=== PATIENT | female | born 1965 | race Caucasian/White ===

== ENCOUNTER 2024-01-16 11:45 | Inpatient (IN) | payer OTHER, SELFPAY ==
--- OUTSIDE RECORDS SUMMARY | 2024-01-16 11:52 | XMS REPORT | Continuity of Care Document ---
Author Name Unknown Address [address] [facility] [address]. [address] [place] [address] [facility] thconnect Address [address] [facility]. [address] [place] [address] Care Team Providers Care Staff Midwife/Apprenticeship Director Name Role Phone PCP, PATIENT DOES NOT HAVE A Primary Care Physic jasmin Unavailable Beverly Kelsey Attending Clinician Unavailable LEBRON FRANCO Attending Clinician Unavailable LEBRON FRANCO Attending Clinician Unavailable Shirley Attending Clinician Unavailable Beverly Kelsey Admitting Clinician Unavailable Physician, No Primary or Family Admitting Clinic jasmin Unavailable Shirley Admitting Clinician Unavailable Payers Payer Name Policy Type Policy Number Effective Date Expirati on Date Source [facility] [id number] 2023 00:00:00 Allergies, Adverse Reactions, Alerts Allergy Name Allergy Type Status Severity Reaction(s) Onset Date Inactive Date Treating Clinician Comments Source Penicill ins DA Active U HIVES 01-05 00:00: 00 [facility] codeine DA Active U HIVES 01-05 00:00: 00 [facility] Codeine Propensi ty to adverse reaction s Active Unknown - See comments - 00:00: 00 [facility] CODEINE DRUG INGREDI Active Unknown-Cmnt - 00:00: 00 [facility] NO KNOWN ALLERGIE S Drug Class Active [facility] Social History Social Habit Start Date Stop Date Quantity Comments Source [facility] Sex Ass[facility] At 1965 00:00:00 1965 00:00:00 [facility] Smoking Status Start Date Stop Date Source Tobacco smoking consumption unknown [facility] Vital Signs Vital Name Observation Time Observation Value Comments S ource Systolic blood pressure 2023-12-11 16:28:00 118 mm[Hg] [facility] Diastolic blood pressure 2023-12-11 16:28:00 78 mm[Hg] [facility] Heart rate 2023-12-11 16:28:00 88 /min [facility] Body temperature 2023-12-11 16:28:00 36.44 Linda [facility] Respiratory rate 2023-12-11 16:28:00 18 /min [facility] Oxygen saturation in Arterial blood by Pulse oximetry 2023-12-11 16:28:00 99 /min [facility] Procedures Procedure Date / Time Performed Performing Clinicia n Source CONSENT/REFUSAL FOR DIAGNOSIS AND TREATMENT 2023-12-11 16:25:38 Doctor Unassigned, [place] [facility] Encounters Start Date/Time End Date/Time Encounter Type Admission Type Attending Clinicians Care Facility Care Department Encounter ID Source 2024-01-05 01:09:00 2024-01-13 16:17:00 Inpatient ROLDAN Mckinneyzi Beverly [facility] MEDI.01 [id number] [facility] 2024-01-10 15:43:00 2024-01-10 15:43:00 Outpatient KERMIT MckinneyBeverly lowe [facility] MCCL [id number] [facility] 2024-01-04 20:53:00 2024-01-05 05:10:00 Emergency Department Patient Visit [facility] [id number] 10:30:00 2023-12-11 12:19:00 Emergency X LEBRON FRANCO [facility] ERT [id number] [facility] 2023-12-11 10:30:00 2023-12-11 12:19:00 Emergency [facility] [id number] [facility] 2023-12-02 00:00:00 2023-12-02 00:00:00 Outpatient [facility] [id number] [facility] 2023-12-01 00:00:00 2023-12-01 00:00:00 Outpatient [facility] [id number] [facility] 2023-11-24 00:00:00 2023-11-24 00:00:00 Outpatient [facility] [id number] [facility] 2023-11-19 18:04:00 2023-11-19 22:18:00 Emergency Department Patient Visit [facility] [id number] 00:00:00 2023-11-19 00:00:00 Outpatient [facility] [id number] [facility] Results Test Description Test Time Test Comments Results Result Co mments Source BASIC METABOLIC [id number] 07:11:00* Test Item Value Reference Range Interpretation Comme nts SODIUM (test code = NA) 131 mEq/L 134-147 L POTASSIUM (test code = K) 3.3 mEq/L 3.4-5.0 L CHLORIDE (test code = CL) 96 mEq/L 100-108 L CARBON DIOXIDE (test code = CO2) 26 mEq/l 21-33 N ANION GAP (test code = GAP) 12 0-20 N GLUCOSE (test code = GLU) 80 mg/dL 77-141 BLOOD UREA NITROGEN (test code = BUN) < 5 mg/dL 7-25 L GLOMERULAR FILTRATION RATE (test code = GFR) 108.0 90-95 H The Glomerular Filtration Rate is a calculated parameterbased on serum Creatinine, patient age and sex. GFR valuesless than 60 mL/min/1.73 square meters are indicative ofChronic Kidney Disease. Values less than 15 mL/min/1.73square meters indicate Kidney failure. The calculation forGFR is based on the CKD-EPI (2020) calculation. This formulais race indifferent and is the recommended formula for GFRby the National Kidney Foundation for Adults.The GFR will not calculate if the sex is unknown or if thepatient's age is <18 years. CREATININE (test code = CREAT) 0.5 mg/dL 0.6-1.3 L CALCIUM (test code = CA) 8.5 mg/dL 8.0-10.5 N [id number] 07:11:00* Test Item Value Reference Range Interpretation Comme nts MAGNESIUM (test code = MAG) 1.59 mg/dL 1.6-2.6 L UR SODIUM [id number] 18:09:00* Test Item Value Reference Range Interpretation Comme nts UR SODIUM RANDOM (test code = CHRISTINE) 184 MEQ/L The Reference Ra nge and Method Performance specificationshave not been established for this fluid. The test resultshould be correlated into the clinical context forinterpretation. UR POTASSIUM [id number] 18:09:00* Test Item Value Reference Range Interpretation Comme nts UR POTASSIUM RANDOM (test code = KU) 35.6 MEQ/L The Reference Ra nge and Method Performance specificationshave not been established for this fluid. The test resultshould be correlated into the clinical context forinterpretation. UR CHLORIDE [id number] 18:09:00* Test Item Value Reference Range Interpretation Comme nts UR CHLORIDE RANDOM (test code = CLU) 197 mmol/L Not Estab. Performed At: [facility] [address] [id number] Kyle L MD Ph:[phone] UR OSMOLALITY [id number] 18:09:00* Test Item Value Reference Range Interpretation Comme nts UR OSMOLALITY RANDOM (test c ode = OSMOU) 601 MOS/KG 300-1000 BASIC METABOLIC [id number] 07:21:00* Test Item Value Reference Range Interpretation Comme nts SODIUM (test code = NA) 131 mEq/L 134-147 L POTASSIUM (test code = K) 3.5 mEq/L 3.4-5.0 N CHLORIDE (test code = CL) 99 mEq/L 100-108 L CARBON DIOXIDE (test code = CO2) 22 mEq/l 21-33 N ANION GAP (test code = GAP) 14 0-20 N GLUCOSE (test code = GLU) 126 mg/dL 77-141 N BLOOD UREA NITROGEN (test code = BUN) < 5 mg/dL 7-25 L GLOMERULAR FILTRATION RATE (test code = GFR) 108.0 90-95 H The Glomerular Filtration Rate is a calculated parameterbased on serum Creatinine, patient age and sex. GFR valuesless than 60 mL/min/1.73 square meters are indicative ofChronic Kidney Disease. Values less than 15 mL/min/1.73square meters indicate Kidney failure. The calculation forGFR is based on the CKD-EPI (2020) calculation. This formulais race indifferent and is the recommended formula for GFRby the National Kidney Foundation for Adults.The GFR will not calculate if the sex is unknown or if thepatient's age is <18 years. CREATININE (test code = CREAT) 0.5 mg/dL 0.6-1.3 L CALCIUM (test code = CA) 7.6 mg/dL 8.0-10.5 L [id number] 07:21:00* Test Item Value Reference Range Interpretation Comme nts MAGNESIUM (test code = MAG) 1.89 mg/dL 1.6-2.6 OSMOLALITY [id number] 14:05:00* Test Item Value Reference Range Interpretation Comme nts OSMOLALITY SERUM (test code = OSMO) 274 MOS/KG 275-295 L OSMOLALITY [id number] 14:04:00* Test Item Value Reference Range Interpretation Comme nts OSMOLALITY SERUM (test code = OSMO) 274 MOS/KG 275-295 L UR OSMOLALITY [id number] 09:03:00* Test Item Value Reference Range Interpretation Comme nts UR OSMOLALITY RANDOM (test c ode = OSMOU) 601 MOS/KG 300-1000 N CORTISOL [id number] 08:13:00* Test Item Value Reference Range Interpretation Comme nts CORTISOL AM (test code = CORTAM) 14.30 ug/dL Reference Interv al: 2mo-13yrs: 2.4-22.9 ug/dL 14-15yrs(Male): 2.5-22.9 ug/dL 14-15yrs(Female): 2.5-28.6 ug/dL 16-18yrs(M/F): 2.4-28.6 ug/dLAdults(M/F) AM: 4.3-22.4 ug/dLAdults(M/F) PM: 3.1-16.7 ug/dL BASIC METABOLIC [id number] 08:11:00* Test Item Value Reference Range Interpretation Comme nts SODIUM (test code = NA) 131 mEq/L 134-147 L POTASSIUM (test code = K) 3.1 mEq/L 3.4-5.0 L CHLORIDE (test code = CL) 98 mEq/L 100-108 L CARBON DIOXIDE (test code = CO2) 19 mEq/l 21-33 L ANION GAP (test code = GAP) 17 0-20 N GLUCOSE (test code = GLU) 122 mg/dL 77-141 N BLOOD UREA NITROGEN (test code = BUN) 8 mg/dL 7-25 N GLOMERULAR FILTRATION RATE (test code = GFR) 108.0 90-95 H The Glomerular Filtration Rate is a calculated parameterbased on serum Creatinine, patient age and sex. GFR valuesless than 60 mL/min/1.73 square meters are indicative ofChronic Kidney Disease. Values less than 15 mL/min/1.73square meters indicate Kidney failure. The calculation forGFR is based on the CKD-EPI (202) calculation. This formulais race indifferent and is the recommended formula for GFRby the National Kidney Foundation for Adults.The GFR will not calculate if the sex is unknown or if thepatient's age is <18 years. CREATININE (test code = CREAT) 0.5 mg/dL 0.6-1.3 L CALCIUM (test code = CA) 8.2 mg/dL 8.0-10.5 N [id number] 08:11:00* Test Item Value Reference Range Interpretation Comme nts PHOSPHOROUS (test code = PHOS) 2.9 MG/DL 2.5-4.9 N [id number] 08:11:00* Test Item Value Reference Range Interpretation Comme nts MAGNESIUM (test code = MAG) 2.27 mg/dL 1.6-2.6 [id number] 08:11:00* Test Item Value Reference Range Interpretation Comme nts ALDOSTERONE (test code = ALDOS) RENIN [id number] 08:11:00* Test Item Value Reference Range Interpretation Comme nts RENIN ACTIVITY (test code = RENINA) CBC W/AUTO [id number] 08:00:00* Test Item Value Reference Range Interpretation Comme nts WHITE BLOOD CELL (test code = WBC) 6.0 x10 3/uL 4.5-11.0 N RED BLOOD CELL (test code = RBC) 3.81 x10 6/uL 3.54-5.02 N HEMOGLOBIN (test code = HGB) 12.5 g/dL 11.0-15.0 N HEMATOCRIT (test code = HCT) 36.0 % 33.0-45.0 N MEAN CELL VOLUME (test code = MCV) 94.5 fL 81.0-99.0 N MEAN CELL HGB (test code = MCH) 32.8 pg 27.0-33.0 N MEAN CELL HGB CONCETRATION (test code = MCHC) 34.7 g/dL 33.0-37.0 N RED CELL DISTRIBUTION WIDTH CV (test code = RDW) 14.4 % 11.5-14.5 N RED CELL DISTRIBUTION WIDTH SD (test code = RDW-SD) 49.2 fL 37.0-54.0 N PLATELET COUNT (test code = PLT) 211 x10 3/uL 150-400 N MEAN PLATELET VOLUME (test c ode = MPV) 10.3 fL 7.0-9.0 H NEUTROPHIL % (test code = NT%) 79.8 % 56.0-77.0 H IMMATURE GRANULOCYTE % (test code = IG%) 0.8 % 0.0-2.0 N LYMPHOCYTE % (test code = LY%) 9.7 % 14.0-32.0 L MONOCYTE % (test code = MO%) 9.7 % 4.8-9.0 H EOSINOPHIL % (test code = EO%) 0.0 % 0.3-3.7 L BASOPHIL % (test code = BA%) 0.0 % 0.0-2.0 N NUCLEATED RBC % (test code = NRBC%) 0.0 % 0-0 N NEUTROPHIL # (test code = NT#) 4.78 x10 3/uL 2.0-7.6 N IMMATURE GRANULOCYTE # (test code = IG#) 0.05 x10 3/uL 0.00-0.03 H LYMPHOCYTE # (test code = LY#) 0.58 x10 3/uL 1.0-3.8 L MONOCYTE # (test code = MO#) 0.58 x10 3/uL 0.1-0.8 N EOSINOPHIL # (test code = EO#) 0.00 x10 3/uL 0.0-0.2 N BASOPHIL # (test code = BA#) 0.00 x10 3/uL 0.0-0.2 N NUCLEATED RBC # (test code = NRBC#) 0.00 x10 3/uL 0.0-0.1 N [id number] 17:29:00* Test Item Value Reference Range Interpretation Comme nts MAGNESIUM (test code = MAG) 1.23 mg/dL 1.6-2.6 L ADD ON TEST? YesBASIC METABOLIC [id number] 08:29:00* Test Item Value Reference Range Interpretation Comme nts SODIUM (test code = NA) 134 mEq/L 134-147 N POTASSIUM (test code = K) 2.9 mEq/L 3.4-5.0 LL Critical result called to Florentin [email or web address] at 0827 01/10/24Nurse read back resut and tech confirmed it's correct? YES CHLORIDE (test code = CL) 101 mEq/L 100-108 N CARBON DIOXIDE (test code = CO2) 19 mEq/l 21-33 L ANION GAP (test code = GAP) 17 0-20 N GLUCOSE (test code = GLU) 100 mg/dL 77-141 BLOOD UREA NITROGEN (test code = BUN) 9 mg/dL 7-25 N GLOMERULAR FILTRATION RATE (test code = GFR) 108.0 90-95 H The Glomerular Filtration Rate is a calculated parameterbased on serum Creatinine, patient age and sex. GFR valuesless than 60 mL/min/1.73 square meters are indicative ofChronic Kidney Disease. Values less than 15 mL/min/1.73square meters indicate Kidney failure. The calculation forGFR is based on the CKD-EPI (2020) calculation. This formulais race indifferent and is the recommended formula for GFRby the National Kidney Foundation for Adults.The GFR will not calculate if the sex is unknown or if thepatient's age is <18 years. CREATININE (test code = CREAT) 0.5 mg/dL 0.6-1.3 L CALCIUM (test code = CA) 8.3 mg/dL 8.0-10.5 N CBC W/AUTO [id number] 07:50:00* Test Item Value Reference Range Interpretation Comme nts WHITE BLOOD CELL (test code = WBC) 7.8 x10 3/uL 4.5-11.0 N RED BLOOD CELL (test code = RBC) 3.90 x10 6/uL 3.54-5.02 N HEMOGLOBIN (test code = HGB) 12.9 g/dL 11.0-15.0 N HEMATOCRIT (test code = HCT) 37.9 % 33.0-45.0 N MEAN CELL VOLUME (test code = MCV) 97.2 fL 81.0-99.0 N MEAN CELL HGB (test code = MCH) 33.1 pg 27.0-33.0 H MEAN CELL HGB CONCETRATION (test code = MCHC) 34.0 g/dL 33.0-37.0 N RED CELL DISTRIBUTION WIDTH CV (test code = RDW) 14.5 % 11.5-14.5 N RED CELL DISTRIBUTION WIDTH SD (test code = RDW-SD) 51.4 fL 37.0-54.0 N PLATELET COUNT (test code = PLT) 235 x10 3/uL 150-400 N MEAN PLATELET VOLUME (test c ode = MPV) 10.9 fL 7.0-9.0 H NEUTROPHIL % (test code = NT%) 82.4 % 56.0-77.0 H IMMATURE GRANULOCYTE % (test code = IG%) 1.0 % 0.0-2.0 N LYMPHOCYTE % (test code = LY%) 9.1 % 14.0-32.0 L MONOCYTE % (test code = MO%) 7.5 % 4.8-9.0 N EOSINOPHIL % (test code = EO%) 0.0 % 0.3-3.7 L BASOPHIL % (test code = BA%) 0.0 % 0.0-2.0 N NUCLEATED RBC % (test code = NRBC%) 0.0 % 0-0 N NEUTROPHIL # (test code = NT#) 6.46 x10 3/uL 2.0-7.6 N IMMATURE GRANULOCYTE # (test code = IG#) 0.08 x10 3/uL 0.00-0.03 H LYMPHOCYTE # (test code = LY#) 0.71 x10 3/uL 1.0-3.8 L MONOCYTE # (test code = MO#) 0.59 x10 3/uL 0.1-0.8 N EOSINOPHIL # (test code = EO#) 0.00 x10 3/uL 0.0-0.2 N BASOPHIL # (test code = BA#) 0.00 x10 3/uL 0.0-0.2 N NUCLEATED RBC # (test code = NRBC#) 0.00 x10 3/uL 0.0-0.1 N BASIC METABOLIC [id number] 06:50:00* Test Item Value Reference Range Interpretation Comme nts SODIUM (test code = NA) 134 mEq/L 134-147 N POTASSIUM (test code = K) 3.1 mEq/L 3.4-5.0 L CHLORIDE (test code = CL) 104 mEq/L 100-108 N CARBON DIOXIDE (test code = CO2) 19 mEq/l 21-33 L ANION GAP (test code = GAP) 14 0-20 N GLUCOSE (test code = GLU) 135 mg/dL 77-141 N BLOOD UREA NITROGEN (test code = BUN) 6 mg/dL 7-25 L GLOMERULAR FILTRATION RATE (test code = GFR) 108.0 90-95 H The Glomerular Filtration Rate is a calculated parameterbased on serum Creatinine, patient age and sex. GFR valuesless than 60 mL/min/1.73 square meters are indicative ofChronic Kidney Disease. Values less than 15 mL/min/1.73square meters indicate Kidney failure. The calculation forGFR is based on the CKD-EPI (202) calculation. This formulais race indifferent and is the recommended formula for GFRby the National Kidney Foundation for Adults.The GFR will not calculate if the sex is unknown or if thepatient's age is <18 years. CREATININE (test code = CREAT) 0.5 mg/dL 0.6-1.3 L CALCIUM (test code = CA) 7.5 mg/dL 8.0-10.5 L CBC W/AUTO [id number] 06:48:00* Test Item Value Reference Range Interpretation Comme nts WHITE BLOOD CELL (test code = WBC) 7.0 x10 3/uL 4.5-11.0 RED BLOOD CELL (test code = RBC) 3.68 x10 6/uL 3.54-5.02 N HEMOGLOBIN (test code = HGB) 12.3 g/dL 11.0-15.0 N HEMATOCRIT (test code = HCT) 35.4 % 33.0-45.0 N MEAN CELL VOLUME (test code = MCV) 96.2 fL 81.0-99.0 N MEAN CELL HGB (test code = MCH) 33.4 pg 27.0-33.0 H MEAN CELL HGB CONCETRATION (test code = MCHC) 34.7 g/dL 33.0-37.0 N RED CELL DISTRIBUTION WIDTH CV (test code = RDW) 14.2 % 11.5-14.5 N RED CELL DISTRIBUTION WIDTH SD (test code = RDW-SD) 50.3 fL 37.0-54.0 N PLATELET COUNT (test code = PLT) 246 x10 3/uL 150-400 N MEAN PLATELET VOLUME (test c ode = MPV) 10.3 fL 7.0-9.0 H NEUTROPHIL % (test code = NT%) 80.1 % 56.0-77.0 H IMMATURE GRANULOCYTE % (test code = IG%) 1.1 % 0.0-2.0 N LYMPHOCYTE % (test code = LY%) 11.4 % 14.0-32.0 L MONOCYTE % (test code = MO%) 7.4 % 4.8-9.0 N EOSINOPHIL % (test code = EO%) 0.0 % 0.3-3.7 L BASOPHIL % (test code = BA%) 0.0 % 0.0-2.0 N NUCLEATED RBC % (test code = NRBC%) 0.0 % 0-0 N NEUTROPHIL # (test code = NT#) 5.63 x10 3/uL 2.0-7.6 N IMMATURE GRANULOCYTE # (test code = IG#) 0.08 x10 3/uL 0.00-0.03 H LYMPHOCYTE # (test code = LY#) 0.80 x10 3/uL 1.0-3.8 L MONOCYTE # (test code = MO#) 0.52 x10 3/uL 0.1-0.8 N EOSINOPHIL # (test code = EO#) 0.00 x10 3/uL 0.0-0.2 N BASOPHIL # (test code = BA#) 0.00 x10 3/uL 0.0-0.2 N NUCLEATED RBC # (test code = NRBC#) 0.00 x10 3/uL 0.0-0.1 N MANUAL DIFF REQUIRED (test c ode = MDIFF) NO BASIC METABOLIC [id number] 07:07:00* Test Item Value Reference Range Interpretation Comme nts SODIUM (test code = NA) 137 mEq/L 134-147 N POTASSIUM (test code = K) 3.6 mEq/L 3.4-5.0 N CHLORIDE (test code = CL) 106 mEq/L 100-108 N CARBON DIOXIDE (test code = CO2) 20 mEq/l 21-33 L ANION GAP (test code = GAP) 14 0-20 N GLUCOSE (test code = GLU) 119 mg/dL 77-141 N BLOOD UREA NITROGEN (test code = BUN) 7 mg/dL 7-25 N GLOMERULAR FILTRATION RATE (test code = GFR) 108.0 90-95 H The Glomerular Filtration Rate is a calculated parameterbased on serum Creatinine, patient age and sex. GFR valuesless than 60 mL/min/1.73 square meters are indicative ofChronic Kidney Disease. Values less than 15 mL/min/1.73square meters indicate Kidney failure. The calculation forGFR is based on the CKD-EPI (202) calculation. This formulais race indifferent and is the recommended formula for GFRby the National Kidney Foundation for Adults.The GFR will not calculate if the sex is unknown or if thepatient's age is <18 years. CREATININE (test code = CREAT) 0.5 mg/dL 0.6-1.3 L CALCIUM (test code = CA) 8.0 mg/dL 8.0-10.5 N CBC W/AUTO [id number] 07:02:00* Test Item Value Reference Range Interpretation Comme nts WHITE BLOOD CELL (test code = WBC) 12.8 x10 3/uL 4.5-11.0 H RED BLOOD CELL (test code = RBC) 3.68 x10 6/uL 3.54-5.02 N HEMOGLOBIN (test code = HGB) 12.2 g/dL 11.0-15.0 N HEMATOCRIT (test code = HCT) 35.2 % 33.0-45.0 N MEAN CELL VOLUME (test code = MCV) 95.7 fL 81.0-99.0 N MEAN CELL HGB (test code = MCH) 33.2 pg 27.0-33.0 H MEAN CELL HGB CONCETRATION (test code = MCHC) 34.7 g/dL 33.0-37.0 N RED CELL DISTRIBUTION WIDTH CV (test code = RDW) 14.1 % 11.5-14.5 N RED CELL DISTRIBUTION WIDTH SD (test code = RDW-SD) 49.3 fL 37.0-54.0 N PLATELET COUNT (test code = PLT) 289 x10 3/uL 150-400 N MEAN PLATELET VOLUME (test code = MPV) 10.1 fL 7.0-9.0 H NEUTROPHIL % (test code = NT%) 84.4 % 56.0-77.0 H IMMATURE GRANULOCYTE % (test code = IG%) 1.6 % 0.0-2.0 N LYMPHOCYTE % (test code = LY%) 8.4 % 14.0-32.0 L MONOCYTE % (test code = MO%) 5.5 % 4.8-9.0 N EOSINOPHIL % (test code = EO%) 0.0 % 0.3-3.7 L BASOPHIL % (test code = BA%) 0.1 % 0.0-2.0 N NUCLEATED RBC % (test code = NRBC%) 0.0 % 0-0 N NEUTROPHIL # (test code = NT#) 10.80 x10 3/uL 2.0-7.6 H IMMATURE GRANULOCYTE # (test code = IG#) 0.20 x10 3/uL 0.00-0.03 H LYMPHOCYTE # (test code = LY#) 1.07 x10 3/uL 1.0-3.8 N MONOCYTE # (test code = MO#) 0.70 x10 3/uL 0.1-0.8 N EOSINOPHIL # (test code = EO#) 0.00 x10 3/uL 0.0-0.2 N BASOPHIL # (test code = BA#) 0.01 x10 3/uL 0.0-0.2 N NUCLEATED RBC # (test code = NRBC#) 0.00 x10 3/uL 0.0-0.1 N BASIC METABOLIC [id number] 07:46:00* Test Item Value Reference Range Interpretation Comme nts SODIUM (test code = NA) 137 mEq/L 134-147 N POTASSIUM (test code = K) 3.1 mEq/L 3.4-5.0 L CHLORIDE (test code = CL) 105 mEq/L 100-108 N CARBON DIOXIDE (test code = CO2) 22 mEq/l 21-33 N ANION GAP (test code = GAP) 13 0-20 N GLUCOSE (test code = GLU) 157 mg/dL 77-141 H BLOOD UREA NITROGEN (test code = BUN) < 5 mg/dL 7-25 L GLOMERULAR FILTRATION RATE (test code = GFR) 113.9 90-95 H The Glomerular Filtration Rate is a calculated parameterbased on serum Creatinine, patient age and sex. GFR valuesless than 60 mL/min/1.73 square meters are indicative ofChronic Kidney Disease. Values less than 15 mL/min/1.73square meters indicate Kidney failure. The calculation forGFR is based on the CKD-EPI (2020) calculation. This formulais race indifferent and is the recommended formula for GFRby the National Kidney Foundation for Adults.The GFR will not calculate if the sex is unknown or if thepatient's age is <18 years. CREATININE (test code = CREAT) 0.4 mg/dL 0.6-1.3 L CALCIUM (test code = CA) 8.0 mg/dL 8.0-10.5 N CBC W/AUTO [id number] 07:34:00* Test Item Value Reference Range Interpretation Comme nts WHITE BLOOD CELL (test code = WBC) 9.5 x10 3/uL 4.5-11.0 N RED BLOOD CELL (test code = RBC) 3.42 x10 6/uL 3.54-5.02 L HEMOGLOBIN (test code = HGB) 11.3 g/dL 11.0-15.0 N HEMATOCRIT (test code = HCT) 32.8 % 33.0-45.0 L MEAN CELL VOLUME (test code = MCV) 95.9 fL 81.0-99.0 N MEAN CELL HGB (test code = MCH) 33.0 pg 27.0-33.0 N MEAN CELL HGB CONCETRATION (test code = MCHC) 34.5 g/dL 33.0-37.0 N RED CELL DISTRIBUTION WIDTH CV (test code = RDW) 14.0 % 11.5-14.5 N RED CELL DISTRIBUTION WIDTH SD (test code = RDW-SD) 49.2 fL 37.0-54.0 N PLATELET COUNT (test code = PLT) 263 x10 3/uL 150-400 N MEAN PLATELET VOLUME (test c ode = MPV) 10.4 fL 7.0-9.0 H NEUTROPHIL % (test code = NT%) 87.1 % 56.0-77.0 H IMMATURE GRANULOCYTE % (test code = IG%) 1.3 % 0.0-2.0 N LYMPHOCYTE % (test code = LY%) 8.3 % 14.0-32.0 L MONOCYTE % (test code = MO%) 3.3 % 4.8-9.0 L EOSINOPHIL % (test code = EO%) 0.0 % 0.3-3.7 L BASOPHIL % (test code = BA%) 0.0 % 0.0-2.0 N NUCLEATED RBC % (test code = NRBC%) 0.0 % 0-0 N NEUTROPHIL # (test code = NT#) 8.29 x10 3/uL 2.0-7.6 H IMMATURE GRANULOCYTE # (test code = IG#) 0.12 x10 3/uL 0.00-0.03 H LYMPHOCYTE # (test code = LY#) 0.79 x10 3/uL 1.0-3.8 L MONOCYTE # (test code = MO#) 0.31 x10 3/uL 0.1-0.8 N EOSINOPHIL # (test code = EO#) 0.00 x10 3/uL 0.0-0.2 N BASOPHIL # (test code = BA#) 0.00 x10 3/uL 0.0-0.2 N NUCLEATED RBC # (test code = NRBC#) 0.00 x10 3/uL 0.0-0.1 N BASIC METABOLIC [id number] 07:55:00* Test Item Value Reference Range Interpretation Comme nts SODIUM (test code = NA) 140 mEq/L 134-147 N POTASSIUM (test code = K) 3.3 mEq/L 3.4-5.0 L CHLORIDE (test code = CL) 106 mEq/L 100-108 N CARBON DIOXIDE (test code = CO2) 23 mEq/l 21-33 N ANION GAP (test code = GAP) 14 0-20 N GLUCOSE (test code = GLU) 135 mg/dL 77-141 N BLOOD UREA NITROGEN (test code = BUN) < 5 mg/dL 7-25 L GLOMERULAR FILTRATION RATE (test code = GFR) 108.0 90-95 H The Glomerular Filtration Rate is a calculated parameterbased on serum Creatinine, patient age and sex. GFR valuesless than 60 mL/min/1.73 square meters are indicative ofChronic Kidney Disease. Values less than 15 mL/min/1.73square meters indicate Kidney failure. The calculation forGFR is based on the CKD-EPI (202) calculation. This formulais race indifferent and is the recommended formula for GFRby the National Kidney Foundation for Adults.The GFR will not calculate if the sex is unknown or if thepatient's age is <18 years. CREATININE (test code = CREAT) 0.5 mg/dL 0.6-1.3 L CALCIUM (test code = CA) 8.2 mg/dL 8.0-10.5 N CBC W/AUTO [id number] 07:48:00* Test Item Value Reference Range Interpretation Comme nts WHITE BLOOD CELL (test code = WBC) 11.5 x10 3/uL 4.5-11.0 H RED BLOOD CELL (test code = RBC) 3.27 x10 6/uL 3.54-5.02 L HEMOGLOBIN (test code = HGB) 10.8 g/dL 11.0-15.0 L HEMATOCRIT (test code = HCT) 31.5 % 33.0-45.0 L MEAN CELL VOLUME (test code = MCV) 96.3 fL 81.0-99.0 N MEAN CELL HGB (test code = MCH) 33.0 pg 27.0-33.0 N MEAN CELL HGB CONCETRATION (test code = MCHC) 34.3 g/dL 33.0-37.0 N RED CELL DISTRIBUTION WIDTH CV (test code = RDW) 14.0 % 11.5-14.5 N RED CELL DISTRIBUTION WIDTH SD (test code = RDW-SD) 48.8 fL 37.0-54.0 N PLATELET COUNT (test code = PLT) 271 x10 3/uL 150-400 MEAN PLATELET VOLUME (test code = MPV) 10.4 fL 7.0-9.0 H NEUTROPHIL % (test code = NT%) 87.4 % 56.0-77.0 H IMMATURE GRANULOCYTE % (test code = IG%) 1.0 % 0.0-2.0 N LYMPHOCYTE % (test code = LY%) 7.1 % 14.0-32.0 L MONOCYTE % (test code = MO%) 4.4 % 4.8-9.0 L EOSINOPHIL % (test code = EO%) 0.0 % 0.3-3.7 L BASOPHIL % (test code = BA%) 0.1 % 0.0-2.0 N NUCLEATED RBC % (test code = NRBC%) 0.0 % 0-0 N NEUTROPHIL # (test code = NT#) 10.04 x10 3/uL 2.0-7.6 H IMMATURE GRANULOCYTE # (test code = IG#) 0.12 x10 3/uL 0.00-0.03 H LYMPHOCYTE # (test code = LY#) 0.82 x10 3/uL 1.0-3.8 L MONOCYTE # (test code = MO#) 0.50 x10 3/uL 0.1-0.8 N EOSINOPHIL # (test code = EO#) 0.00 x10 3/uL 0.0-0.2 N BASOPHIL # (test code = BA#) 0.01 x10 3/uL 0.0-0.2 N NUCLEATED RBC # (test code = NRBC#) 0.00 x10 3/uL 0.0-0.1 N AG HEPATITIS B [id number] 19:11:00* Test Item Value Reference Range Interpretation Comme nts AG HEPATITIS B SURFACE (test code = HBSAG) NON REACTIVE INDEX NonReactive AB HEPATITIS [id number] 19:11:00* Test Item Value Reference Range Interpretation Comme nts AB HEPATITIS C (test code = HCVAB) REACTIVE INDEX NON REACT. A A reactive antib mayo test is not diagnostic of activehepatitis C infection. A confirmatory test such as a NucleicAcid Test for HCV RNA test is recommended if clinicallyindicated. AB HIV 1 19:11:00* Test Item Value Reference Range Interpretation Comme nts AB HIV 1 2 (test code = [id number]) Nonreactive Nonreactive BASIC METABOLIC [id number] 08:28:00* Test Item Value Reference Range Interpretation Comme nts SODIUM (test code = NA) 136 mEq/L 134-147 N POTASSIUM (test code = K) 3.8 mEq/L 3.4-5.0 CHLORIDE (test code = CL) 103 mEq/L 100-108 N CARBON DIOXIDE (test code = CO2) 21 mEq/l 21-33 N ANION GAP (test code = GAP) 16 0-20 N GLUCOSE (test code = GLU) 114 mg/dL 77-141 BLOOD UREA NITROGEN (test code = BUN) < 5 mg/dL 7-25 L GLOMERULAR FILTRATION RATE (test code = GFR) 108.0 90-95 H The Glomerular Filtration Rate is a calculated parameterbased on serum Creatinine, patient age and sex. GFR valuesless than 60 mL/min/1.73 square meters are indicative ofChronic Kidney Disease. Values less than 15 mL/min/1.73square meters indicate Kidney failure. The calculation forGFR is based on the CKD-EPI (2020) calculation. This formulais race indifferent and is the recommended formula for GFRby the National Kidney Foundation for Adults.The GFR will not calculate if the sex is unknown or if thepatient's age is <18 years. CREATININE (test code = CREAT) 0.5 mg/dL 0.6-1.3 L CALCIUM (test code = CA) 8.5 mg/dL 8.0-10.5 N CBC W/AUTO [id number] 08:14:00* Test Item Value Reference Range Interpretation Comme nts WHITE BLOOD CELL (test code = WBC) 3.9 x10 3/uL 4.5-11.0 L RED BLOOD CELL (test code = RBC) 4.02 x10 6/uL 3.54-5.02 N HEMOGLOBIN (test code = HGB) 13.2 g/dL 11.0-15.0 N HEMATOCRIT (test code = HCT) 39.3 % 33.0-45.0 MEAN CELL VOLUME (test code = MCV) 97.8 fL 81.0-99.0 N MEAN CELL HGB (test code = MCH) 32.8 pg 27.0-33.0 N MEAN CELL HGB CONCETRATION (test code = MCHC) 33.6 g/dL 33.0-37.0 N RED CELL DISTRIBUTION WIDTH CV (test code = RDW) 13.9 % 11.5-14.5 N RED CELL DISTRIBUTION WIDTH SD (test code = RDW-SD) 49.7 fL 37.0-54.0 N PLATELET COUNT (test code = PLT) 178 x10 3/uL 150-400 N MEAN PLATELET VOLUME (test c ode = MPV) 10.4 fL 7.0-9.0 H NEUTROPHIL % (test code = NT%) 80.8 % 56.0-77.0 H IMMATURE GRANULOCYTE % (test code = IG%) 0.8 % 0.0-2.0 N LYMPHOCYTE % (test code = LY%) 15.2 % 14.0-32.0 N MONOCYTE % (test code = MO%) 2.6 % 4.8-9.0 L EOSINOPHIL % (test code = EO%) 0.3 % 0.3-3.7 N BASOPHIL % (test code = BA%) 0.3 % 0.0-2.0 N NUCLEATED RBC % (test code = NRBC%) 0.0 % 0-0 N NEUTROPHIL # (test code = NT#) 3.14 x10 3/uL 2.0-7.6 N IMMATURE GRANULOCYTE # (test code = IG#) 0.03 x10 3/uL 0.00-0.03 N LYMPHOCYTE # (test code = LY#) 0.59 x10 3/uL 1.0-3.8 L MONOCYTE # (test code = MO#) 0.10 x10 3/uL 0.1-0.8 N EOSINOPHIL # (test code = EO#) 0.01 x10 3/uL 0.0-0.2 N BASOPHIL # (test code = BA#) 0.01 x10 3/uL 0.0-0.2 N NUCLEATED RBC # (test code = NRBC#) 0.00 x10 3/uL 0.0-0.1 N BASIC METABOLIC [id number] 02:18:00* Test Item Value Reference Range Interpretation Comme nts SODIUM (test code = NA) 136 mEq/L 134-147 N POTASSIUM (test code = K) 2.6 mEq/L 3.4-5.0 LL Critical result called to BISHNU ARMASSTF.IL5 at 0215 01/05/24Nurse read back resut and tech confirmed it's correct? YES CHLORIDE (test code = CL) 100 mEq/L 100-108 N CARBON DIOXIDE (test code = CO2) 27 mEq/l 21-33 N ANION GAP (test code = GAP) 12 0-20 N GLUCOSE (test code = GLU) 91 mg/dL 77-141 N BLOOD UREA NITROGEN (test code = BUN) < 5 mg/dL 7-25 L GLOMERULAR FILTRATION RATE (test code = GFR) 113.9 90-95 H The Glomerular Filtration Rate is a calculated parameterbased on serum Creatinine, patient age and sex. GFR valuesless than 60 mL/min/1.73 square meters are indicative ofChronic Kidney Disease. Values less than 15 mL/min/1.73square meters indicate Kidney failure. The calculation forGFR is based on the CKD-EPI (2020) calculation. This formulais race indifferent and is the recommended formula for GFRby the National Kidney Foundation for Adults.The GFR will not calculate if the sex is unknown or if thepatient's age is <18 years. CREATININE (test code = CREAT) 0.4 mg/dL 0.6-1.3 L CALCIUM (test code = CA) 8.4 mg/dL 8.0-10.5 N LACTIC [id number] 02:17:00* Test Item Value Reference Range Interpretation Comme nts LACTIC ACID (test code = LACT) 1.1 mmol/L 0.4-1.9 N CBC W/AUTO [id number] 01:11:00* Test Item Value Reference Range Interpretation Comme nts WHITE BLOOD CELL (test code = WBC) 6.0 x10 3/uL 4.5-11.0 N RED BLOOD CELL (test code = RBC) 3.33 x10 6/uL 3.54-5.02 L HEMOGLOBIN (test code = HGB) 11.1 g/dL 11.0-15.0 N HEMATOCRIT (test code = HCT) 32.2 % 33.0-45.0 L MEAN CELL VOLUME (test code = MCV) 96.7 fL 81.0-99.0 N MEAN CELL HGB (test code = MCH) 33.3 pg 27.0-33.0 H MEAN CELL HGB CONCETRATION (test code = MCHC) 34.5 g/dL 33.0-37.0 N RED CELL DISTRIBUTION WIDTH CV (test code = RDW) 14.1 % 11.5-14.5 N RED CELL DISTRIBUTION WIDTH SD (test code = RDW-SD) 49.1 fL 37.0-54.0 N PLATELET COUNT (test code = PLT) 244 x10 3/uL 150-400 N MEAN PLATELET VOLUME (test c ode = MPV) 10.3 fL 7.0-9.0 H NEUTROPHIL % (test code = NT%) 59.3 % 56.0-77.0 N IMMATURE GRANULOCYTE % (test code = IG%) 0.7 % 0.0-2.0 N LYMPHOCYTE % (test code = LY%) 23.9 % 14.0-32.0 N MONOCYTE % (test code = MO%) 14.6 % 4.8-9.0 H EOSINOPHIL % (test code = EO%) 1.0 % 0.3-3.7 N BASOPHIL % (test code = BA%) 0.5 % 0.0-2.0 N NUCLEATED RBC % (test code = NRBC%) 0.0 % 0-0 N NEUTROPHIL # (test code = NT#) 3.57 x10 3/uL 2.0-7.6 N IMMATURE GRANULOCYTE # (test code = IG#) 0.04 x10 3/uL 0.00-0.03 H LYMPHOCYTE # (test code = LY#) 1.44 x10 3/uL 1.0-3.8 N MONOCYTE # (test code = MO#) 0.88 x10 3/uL 0.1-0.8 H EOSINOPHIL # (test code = EO#) 0.06 x10 3/uL 0.0-0.2 N BASOPHIL # (test code = BA#) 0.03 x10 3/uL 0.0-0.2 N NUCLEATED RBC # (test code = NRBC#) 0.00 x10 3/uL 0.0-0.1 N Notes Date/Time Note Provider Source 2024-01-13 14:12:00 [id number] LZB/[id number] dM5/ErjD5ighSP67F5vJctU0r5WhXa5Hsb9559-40- 07T14:12:00 [facility] ([facility])Nephrology Progress NoteREPORT#:[id number] REPORT STATUS: SignedREPORT INITIALIZATION DATE:01/13/24 TIME: 1411 PATIENT: ESTRELLITA BANERJEE UNIT #: [id number]#: [id number] [address] [birth year] AGE: 58 SEX: F ATTEND: Beverly Kelsey AUTHOR: Radha AmosPREPT SERVICE DT/TIME: 01/13/24 141* ALL edits or amendments must be made on the electronic/computer document * SubjectiveChief complaint:Swollen of the neckHPI:The patient seen and examined. Resting in bed, breathing comfortably on RA. No acute complaints. Review of SystemsROS comments:A 12 point ROS is obtained and is negative unless specified in HPI Objective GeneralVS/I O:Vital Signs: Date Time Temp Pulse Resp B/P B/P Pulse O2 O2 Flow FiO2 Mean Ox Delivery Rate 01/12 1136 36.5 100 14 129/90 102.8 97 / 0716 36.7 98 14 144/97 112.6 96 / 0409 36.6 85 14 137/87 103.9 95 / 2357 36.6 88 14 147/95 112.5 96 / 1917 36.4 81 15 142/90 107.1 97 24 hour I O ending at 0700: 01/12 0700 01/11 1900 Intake Total 180 Output Total Balance 180 Intake, Oral 180 Number Voids 3 PATIENT WEIGHT: Weight (lb): Weight (oz): Weight (kg): 43.500 MedicationsActive Meds + DC'd Last 24 HrsTrazodone HCl (DESYREL) 25 MG BEDTIME PRN PRN PO (DCD) Potassium Chloride (POTASSIUM CHLORIDE 20MEQ TAB.ER) 40 MEQ ONCE ONE PO (DC) Fluconazole (DIFLUCAN) 200 MG Q24H PO (DCD) Potassium Citrate (UROCIT-K) 1,080 MG BID PO (DCD) Thiamine HCl (THIAMINE HCL) 100 MG DAILY PO (DCD) Metronidazole (FLAGYL) 500 MG Q12H PO (DCD) Ceftriaxone Sodium (ROCEPHIN) 2,000 MG Q24H IV (DCD) Sodium Chloride (SODIUM CHLORIDE) 20 MLCitalopram Hydrobromide (CITALOPRAM HYDROBROMIDE) 10 MG BEDTIME PO (DCD) Enoxaparin Sodium (lovENOX) 30 MG Q24H SUBQ (DCD) Methylprednisolone Sodium Succinate (Solu-Medrol 40 MG Vial) 40 MG Q12H IV (DCD) Pantoprazole (PROTONIX) 40 MG DAILY@0600 PO (DCD) Sterile Water (WATER FOR INJECTION) 1 ML ASDIR PRN IV (DCD) Acetaminophen (TYLENOL) 650 MG Q4H PRN PRN PO (DCD) Dextrose/Sodium Chloride (Dextrose 5% / 0.9% NaCl) 1,000 ML .Q20H IV (DCD) Lorazepam (ATIVAN) 0.5 MG Q8H PRN PRN PO (DCD) Dietitian nutrition assessmentThe data set between the solid lines has been imported from the dietitian's assessment. BMI Calculated: 16.5Nutrition related diagnosis: Nutrition diagnosis details: Nutrition problem: Severe malnutritionNutrition etiology: Social circumstancesNutrition signs and symptoms: severe muscle and fat lossNutrition prescription: 1. Continue full liquid diet as tolerated. 2. Recommend Ensure Plus TID and snacks TID to supplement meals.Dietitian name: Isamar Álvarez MS, RD, LDAssessment completed: 01/06/24 Physical ExamGeneral appearance: alert, awake, oriented, no acute distressHead/eyes: atraumatic, clear cornea, normal conjunctiva/sclera, normocephalicENT: normal noseNeck: Swelling on right side of the neckCardiovascular: normal heart sounds, regular rate and rhythmRespiratory: aerating well, clear to auscultation, no distressAbdomen: non-tender, soft, no reboundExtremities: no edema ResultsFindings/Data:Laboratory Tests 01/12 0604 Chemistry Sodium (134 - 147 mEq/L) 131 L Potassium (3.4 - 5.0 mEq/L) 3.3 L Chloride (100 - 108 mEq/L) 96 L Carbon Dioxide (21 - 33 mEq/l) 26 Anion Gap (0 - 20) 12 BUN (7 - 25 mg/dL) < 5 L Creatinine (0.6 - 1.3 mg/dL) 0.5 L Glomerular Filtr Rate (90 - 95) 108.0 H Glucose (77 - 141 mg/dL) 80 Calcium (8.0 - 10.5 mg/dL) 8.5 Magnesium (1.6 - 2.6 mg/dL) 1.59 L Diagnosis, Assessment PlanFree Text A P:Assessment and Plan: Persistent Hypokalemia/Hypomagnesemia-K+ and Mg replaced. Daily K-citrate supplement, monitor. -Likely 2/2 GI losses from diarrhea, h/o ETOH abuse, also on PPI-Urine anion gap: Positive, indicating possible RTA. Renin/luciana pending, cortisol unremarkable. 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 The patient would require an outpatient PET scan. Treatment options would likely be a definitive concurrent chemoradiation therapy as long as no metastasis noted.-Neck CT w/ contrast (01/06/24): Significant swelling of the soft palate and possible phlegmonous changes with no discrete organized collection. Prominence of the adenoids and pillar tonsils encroaching upon the airway with no discrete tonsillar or peritonsillar abscess. Swelling of the supraglottic larynx and leftglossotonsillar sulcus. Enlarged bilateral level 2 and 3 lymphadenopathy associated with suppurative changes. There is extra chela extension of the purulent material into the subcutaneous tissues and skin of the right side at the level of the hyoid bone. Pedunculated hypodense lesion in the left nasal passageway encroaching upon the nasopharynx likely an inflammatory polyp. -Seen by ENT and ID. Abx (Rocephin/Flagyl) and steroids. Oral Candidiasis-Fluconazole per ID Anxiety-Psych following Tobacco/ETOH Abuse-Cessation counseling, psych following-Thiamine VTE Prophylaxis (Lovenox) D/c planning per primary team. Patient reportedly is without health insurance and resources. Social work was consulted for patient to be able to receive cancer treatment outpatient per primary team. Discussed the plan with the patient, patient's nurse, and . at 1635 at 7205 RPT #:[id number] OF REPORTPRProgress [id number]:12:00G.[id number] AVAvailable for patient humdGMLFTAKZPKGUHW2002-12-36Y97:35:22 [facility] 2024-01-13 12:21:00 [id number] [id number] 3w3t/dzulA0QQpeLFY45SAtuBKFymgaQmP0823-67- 07T12:21:00 [facility] ([facility])Cedrick/Oncology Progress NoteREPORT#:[id number] REPORT STATUS: SignedREPORT INITIALIZATION DATE:01/13/24 TIME: 122 PATIENT: ESTRELLITA BANERJEE UNIT #: [id number]#: [id number] [address] [birth year] AGE: 58 SEX: F ATTEND: Beverly Kelsey AUTHOR: Cleveland Shankar MDREPT SERVICE DT/TIME: 01/13/24 1221* ALL edits or amendments must be made on the electronic/computer document * SubjectiveChief Complaint:No overnight events- seen by case mgmt for insurance assistance/guidance Objective Physical ExamVS:Vital SignsDate Temp Pulse Resp B/P B/P Mean Pulse Ox CgX674/-01/12 36.4-36.7 80-100 14-15 129-147/83-9 102.7-112.6 95-97 7 Last Documented: Result Date Time Pulse Ox 97 01/12 1136 B/P 129/90 01/12 1136 B/P Mean 102.8 01/12 1136 Temp 36.5 01/12 1136 Pulse 100 01/12 1136 Resp 14 01/12 1136 O2 Delivery Room air 01/08 0345 General appearance: alert, awake, orientedHEENT: anictericNeck: lymphadenopathy, tendernessCardiovascular: regular rate and rhythmRespiratory: clear to auscultationAbdomen: non-tender, normal bowel sounds, softExtremities: moves allNeuro/COMPUTER GRAPHIC DESIGNER: alert, oriented X 3, CNII-XII intactskin dry, intactPsychiatry: normal affect Current MedicationsMedications:Active Meds + DC'd Last 24 HrsFluconazole (DIFLUCAN) 200 MG Q24H PO Magnesium Sulfate (MAGNESIUM SULFATE 2GM/SWFI 50ML) 50 ML DAILY PRN PRN IV (DC) Potassium Citrate (UROCIT-K) 1,080 MG BID PO (CKD) Thiamine HCl (THIAMINE HCL) 100 MG DAILY PO Metronidazole (FLAGYL) 500 MG Q12H PO Ceftriaxone Sodium (ROCEPHIN) 2,000 MG Q24H IV Sodium Chloride (SODIUM CHLORIDE) 20 MLCitalopram Hydrobromide (CITALOPRAM HYDROBROMIDE) 10 MG BEDTIME PO Enoxaparin Sodium (lovENOX) 30 MG Q24H SUBQ Methylprednisolone Sodium Succinate (Solu-Medrol 40 MG Vial) 40 MG Q12H IV Pantoprazole (PROTONIX) 40 MG DAILY@0600 PO Sterile Water (WATER FOR INJECTION) 1 ML ASDIR PRN IV Acetaminophen (TYLENOL) 650 MG Q4H PRN PRN PO Dextrose/Sodium Chloride (Dextrose 5% / 0.9% NaCl) 1,000 ML .Q20H IV Lorazepam (ATIVAN) 0.5 MG Q8H PRN PRN PO ResultsFindings/Data:Laboratory Tests 01/13/24 0604:[Embedded Image Not Available]Laboratory Tests 01/13 604 Chemistry Sodium (134 - 147 mEq/L) 131 L Potassium (3.4 - 5.0 mEq/L) 3.3 L Chloride (100 - 108 mEq/L) 96 L Carbon Dioxide (21 - 33 mEq/l) 26 Anion Gap (0 - 20) 12 BUN (7 - 25 mg/dL) < 5 L Creatinine (0.6 - 1.3 mg/dL) 0.5 L Glomerular Filtr Rate (90 - 95) 108.0 H Glucose (77 - 141 mg/dL) 80 Calcium (8.0 - 10.5 mg/dL) 8.5 Magnesium (1.6 - 2.6 mg/dL) 1.59 L Diagnosis, Assessment Plan Free Text DxA P NotesFree Text DxA P Notes:ASSESSMENT:1. 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 Chronic tobacco abuse.3. Chronic alcohol abuse.4. Oral candidiasis.5. Dehydration. PLAN:-Biopsy reviewed. Final pathology outstanding, as is p16 status. CT chest ordered for staging purposes. The patient would require an outpatient PET scan;however at this time, unfunded, case management has provided sources. Treatment options would likely be a concurrent chemoradiation therapy as long as no metastasis noted.-Outpatient radiation oncology consultation when has insurance-Outpatient PET scan-ENT followup and consult appreciated.-Other medical management per primary team. Thank you for the consultation. From an oncological perspective, the patient isstable for discharge to anytime. Discussed with nursing staff as well. If thepatient is insured, she will follow up with me in 7 to 10 days. If not,recommend that case management help her find ways in her county [place] to beseen by an oncologist for definitive treatment. Cleveland Shankar MD at 1224 [facility] #:[id number] OF REPORTPRProgress [id number]:21:00G.[id number] AVAvailable for patient etvoGRJCSRCLLJNRCR6398-09-00R31:24:49 [facility] 2024-01-12 16:47:00 [id number] OMoK6xd/gYFvwUAVXmMsTV dIp8PnNzqLsKwChHKvePWGr1rPfnC51R3g6589-34- 06T16:47:00 [facility] ([facility])Ear/Nose/Throat Progress NoteREPORT#:[id number] REPORT STATUS: SignedREPORT INITIALIZATION DATE:01/12/24 TIME: 1646 PATIENT: ESTRELLITA BANERJEE UNIT #: [id number]#: [id number] [address] [birth year] AGE: 58 SEX: F ATTEND: Beverly Kelsey [facility] AUTHOR: Jan Patel Jr MDREPT SERVICE DT/TIME: 01/12/241646* ALL edits or amendments must be made on the electronic/computer document * SubjectiveHPI:58-year-old female with bilateral enlarged tonsils and 1 to 2 weeks of increasing and worsening throat pain. Patient has been afflicted with upper respiratory symptoms over that time as well. She is generally able to swallow but notes significant pain and discomfort when she does so. Presently no fevers, chills, night sweats, weight loss, or fatigue. She feels significantly better following transfer to [facility] and administration of IV meds. Her left oropharynx is significantly improved and swelling and pain, however theright remains enlarged with significant pain and she has high per nasal speech. Objective GeneralVS/I O:Last Documented: Result Date Time Pulse Ox 95 01/11 1524 B/P 141/83 01/11 1524 B/P Mean 102.7 01/11 1524 Temp 36.6 01/11 1524 Pulse 80 01/11 1524 Resp 15 01/11 1524 O2 Delivery Room air 01/08 0345 PATIENT WEIGHT: Weight (lb): Weight (oz): Weight (kg): 43.500 Physical ExamHead/eyes: atraumatic, clear cornea, EOMI, normal conjunctiva/sclera, normal eyelids/periorb., normocephalic, PERRLENT: Ears: RT normal auricles, RT normal EACs, RT normal TMs middle ears, LT normal auricles, LT normal EACs, LT normal TMs middle ears Nose: normal external nose Oral cavity: tonsil erythema/exudate, tonsil hypertrophy, pharyngeal erythemaNeuro/COMPUTER GRAPHIC DESIGNER: alert, oriented X 3Skin: dry, intact Diagnosis, Assessment PlanFree text A P:58-year-old female with bilateral severe tonsillitis and hypertrophy however, biopsies obtained yesterday are consistent with underlying squamous cell carcinoma of the right tonsil. While she is in-house it is reasonable to obtaina CT thorax with contrast and obtain a care management consult to ascertain whatresources are available to her for treatment. Following completion of the CT chest a more definitive picture of her staging may be performed. I suspect T3N?M0 SCC at present time which would likely require treatment with chemo and radiation. After outpatient follow-up plan of action is determined with case operator and social work, she may be discharged. at 1649 RPT #:[id number] OF REPORTPRProgress [id number]:47:00G.[id number] AVAvailable for patient lengXCBJQKCEWDERJZ4337-18-64B46:49:53 [facility] 2024-01-12 14:54:00 [id number] xu7HiC2MpQxh6e8JMBXZfd Hdig++NwKEK/z8vkFlvgFnUcnAyPSi8u7N8680-51- 06T14:54:00 [facility] ([facility])Infectious Dis. Progress NoteREPORT#:[id number] REPORT STATUS: SignedREPORT INITIALIZATION DATE:01/12/24 TIME: 1453 PATIENT: ESTRELLITA BANERJEE UNIT #: [id number]#: [id number] [address] [birth year] AGE: 58 SEX: F ATTEND: Beverly Kelsey [facility] AUTHOR: Jarocho Lundberg MDREPT SERVICE DT/TIME: 01/12/24 1454* ALL edits or amendments must be made on the electronic/computer document * SubjectiveChief complaint:Head and neck infectionHPI:Subjectively, patient reports feeling about the same and not significantly better. Still has throat discomfort. Denies other acute or new complaints currently. No major overnight events. Objective GeneralVS/I O:Vital SignsDate Temp Pulse Resp B/P B/P Mean Pulse Ox SkI404/05-01/11 97.5-98.1 76-93 14-15 119-147/79-93 92.4-110.9 93-96 Last Documented: Result Date Time Pulse Ox 96 03/ 1023 B/P 119/79 03/ 1023 B/P Mean 92.4 01/11 1023 Temp 98.1 / 1023 Pulse 92 / 1023 Resp 15 01/11 1023 O2 Delivery Room air 01/08 0345 Vital Signs: Date Time Temp Pulse Resp B/P B/P Pulse O2 O2 Flow FiO2 Mean Ox Delivery Rate 01/11 1023 98.1 92 15 119/79 92.4 96 03/ 0701 98.1 93 15 147/88 107.9 94 03/06 0427 97.9 79 14 128/86 100.2 94 03/05 2319 97.5 76 14 141/86 104.4 96 03/05 1858 97.5 81 14 132/82 98.9 95 03/05 1549 97.7 81 15 146/93 110.9 93 PATIENT WEIGHT: Weight (lb): Weight (oz): Weight (kg): 43.500 Physical ExamGeneral appearance: chronically ill appearing, alert, awake, no acute distressENT: pharyngeal erythema, tonsillar exudate, tonsillar swellingCardiovascular: regular rate rhythm, no murmurRespiratory: clear to auscultation, aerating wellAbdomen: non-tender, soft, no distentionExtremities: no cyanosis, no edemaNeuro/COMPUTER GRAPHIC DESIGNER: alert, oriented X 3, no motor deficitsSkin: dry, no rash Diagnosis, Assessment PlanFree Text A P: Assessment: Ms. Banerjee is a 58-year-old female who was transferred from an outside hospital after she was found to have bilateral palatine tonsillar abscesses, soft palate abscess and associated bilateral jugulodigastric lymphadenopathy on imaging. There was also oral candidiasis. There is no reported significant past medical history. Patient does endorse smoking half a pack per day at the time of admission. *Peritonsillar and palatine abscesses*Oral thrush*Well-differentiated squamous cell cancer of oropharynx*Leukopenia*Penicillin allergy*Tobacco abuse disorder -Has been on empiric ceftriaxone and metronidazole with modest benefit at best.-Given longstanding history of smoking, there is a high clinical suspicion of underlying malignancy.-S/p bedside biopsy by ENT 01/10/2024.-Preliminary pathology results with well-differentiated squamous cell carcinoma. Plan: -Continue ceftriaxone + metronidazole.-Continue fluconazole for oral thrush. -Overall, would plan on a 2-week course of antibiotics, with transition to oral agents (likely cefpodoxime 200 mg twice daily + clindamycin 450 mg 3 times daily+ fluconazole 200 mg daily) on discharge to finish treatment.-See stop date below. -Current presentation is likely due to squamous cell cancer.-ENT service is following.-Patient would benefit from hematology/oncology evaluation. Can potentially be done as outpatient. Discussed with Dion Vazquez in person. CURRENT ANTIMICROBIALS:Ceftriaxone + metronidazole, started 01/05/2024Fluconazole, started 01/05/2024 Stop date: 01/19/2024 at 1503 RPT #:[id number] OF REPORTPRProgress [id number]:54:00G.[id number] AVAvailable for patient [id number]:03:34 [facility] 2024-01-12 14:51:00 [id number] isM1Qs070/g9t2rX4nVIJk WMKVpO1LoHBy/Jat0NQiUMWinSuXwivIa81257-42- 06T14:51:00 [facility] ([facility])Nephrology Progress NoteREPORT#:[id number] REPORT STATUS: SignedREPORT INITIALIZATION DATE:01/12/24 TIME: 1450 PATIENT: ESTRELLITA BANERJEE UNIT #: [id number]#: [id number] [address] [birth year] AGE: 58 SEX: F ATTEND: Beverly Kelsey AUTHOR: Radha AmosPREPT SERVICE DT/TIME: 01/12/24 1451* ALL edits or amendments must be made on the electronic/computer document * Radha Amos 01/12/24 1451:SubjectiveChief complaint:Swollen of the neckHPI:The patient seen and examined. Resting in bed, breathing comfortably on RA. No acute complaints. Review of SystemsROS comments:A 12 point ROS is obtained and is negative unless specified in HPI Objective GeneralVS/I O:Vital Signs: Date Time Temp Pulse Resp B/P B/P Pulse O2 O2 Flow FiO2 Mean Ox Delivery Rate 01/11 1917 36.4 81 15 142/90 107.1 97 03/06 1524 36.6 80 15 141/83 102.7 95 03/06 1023 36.7 92 15 119/79 92.4 96 03/06 0701 36.7 93 15 147/88 107.9 94 03/06 0427 36.6 79 14 128/86 100.2 94 03/05 2319 36.4 76 14 141/86 104.4 96 PATIENT WEIGHT: Weight (lb): Weight (oz): Weight (kg): 43.500 MedicationsActive Meds + DC'd Last 24 HrsFluconazole (DIFLUCAN) 200 MG Q24H PO Magnesium Sulfate (MAGNESIUM SULFATE 2GM/SWFI 50ML) 50 ML DAILY PRN PRN IV (DC) Potassium Citrate (UROCIT-K) 1,080 MG BID PO (CKD) Thiamine HCl (THIAMINE HCL) 100 MG DAILY PO Metronidazole (FLAGYL) 500 MG Q12H PO Ceftriaxone Sodium (ROCEPHIN) 2,000 MG Q24H IV Sodium Chloride (SODIUM CHLORIDE) 20 MLCitalopram Hydrobromide (CITALOPRAM HYDROBROMIDE) 10 MG BEDTIME PO Enoxaparin Sodium (lovENOX) 30 MG Q24H SUBQ Methylprednisolone Sodium Succinate (Solu-Medrol 40 MG Vial) 40 MG Q12H IV Pantoprazole (PROTONIX) 40 MG DAILY@0600 PO Sterile Water (WATER FOR INJECTION) 1 ML ASDIR PRN IV Acetaminophen (TYLENOL) 650 MG Q4H PRN PRN PO Dextrose/Sodium Chloride (Dextrose 5% / 0.9% NaCl) 1,000 ML .[id number] IV Lorazepam (ATIVAN) 0.5 MG Q8H PRN PRN PO Fluconazole/Sodium Chloride (FLUCONAZOLE 400MG/NS 200ML) 200 ML Q24H IV (DC) Dietitian nutrition assessmentThe data set between the solid lines has been imported from the dietitian's assessment. BMI Calculated: 16.5Nutrition related diagnosis: Nutrition diagnosis details: Nutrition problem: Severe malnutritionNutrition etiology: Social circumstancesNutrition signs and symptoms: severe muscle and fat lossNutrition prescription: 1. Continue full liquid diet as tolerated. 2. Recommend Ensure Plus TID and snacks TID to supplement meals.Dietitian name: Isamar Álvarez MS, RD, LDAssessment completed: 01/06/24 Physical ExamGeneral appearance: alert, awake, oriented, no acute distressHead/eyes: atraumatic, clear cornea, normal conjunctiva/sclera, normocephalicENT: normal noseNeck: Swelling on right side of the neckCardiovascular: normal heart sounds, regular rate and rhythmRespiratory: aerating well, clear to auscultation, no distressAbdomen: non-tender, soft, no reboundExtremities: no edema ResultsFindings/Data:Laboratory Tests 01/11 0616 Chemistry Sodium (134 - 147 mEq/L) 131 L Potassium (3.4 - 5.0 mEq/L) 3.5 Chloride (100 - 108 mEq/L) 99 L Carbon Dioxide (21 - 33 mEq/l) 22 Anion Gap (0 - 20) 14 BUN (7 - 25 mg/dL) < 5 L Creatinine (0.6 - 1.3 mg/dL) 0.5 L Glomerular Filtr Rate (90 - 95) 108.0 H Glucose (77 - 141 mg/dL) 126 Calcium (8.0 - 10.5 mg/dL) 7.6 L Magnesium (1.6 - 2.6 mg/dL) 1.89 Diagnosis, Assessment PlanFree Text A P:Assessment and Plan: Persistent Hypokalemia/Hypomagnesemia-K+ and Mg improved s/p replacement. Daily K-citrate supplement, monitor. -Likely 2/2 GI losses from diarrhea, h/o ETOH abuse, also on PPI-Urine anion gap: Positive, indicating possible RTA. Renin/luciana pending, cortisol unremarkable. 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 The patient would require an outpatient PET scan. Treatment options would likely be a definitive concurrent chemoradiation therapy as long as no metastasis noted.-Neck CT w/ contrast (01/06/24): Significant swelling of the soft palate and possible phlegmonous changes with no discrete organized collection. Prominence of the adenoids and pillar tonsils encroaching upon the airway with no discrete tonsillar or peritonsillar abscess. Swelling of the supraglottic larynx and leftglossotonsillar sulcus. Enlarged bilateral level 2 and 3 lymphadenopathy associated with suppurative changes. There is extra chela extension of the purulent material into the subcutaneous tissues and skin of the right side at the level of the hyoid bone. Pedunculated hypodense lesion in the left nasal passageway encroaching upon the nasopharynx likely an inflammatory polyp. -Seen by ENT and ID. Abx (Rocephin/Flagyl) and steroids. Oral Candidiasis-Fluconazole per ID Anxiety-Psych following Tobacco/ETOH Abuse-Cessation counseling, psych following-Thiamine VTE Prophylaxis (Lovenox) Discussed the plan with the patient, patient's nurse, and . Juan Arenas 01/12/242201:Attestations Physician AttestationReviewed findings plan:Patient examined k and mag acceptable now, squamous cell ca tonsil on tonsillarbx. oncology following agree with above A/P at 2036 at 2202 RPT #:[id number] OF REPORTPRProgress [id number]:51:[id number] AVAvailable for patient [id number]:38:16 [facility] 2024-01-11 15:09:00 [id number] w2a+8O/LiaFUwuLs3qVfLs [id number]Ai8343-61- 05T15:09:00 [facility] ([facility])Infectious Dis. Progress NoteREPORT#:[id number] REPORT STATUS: SignedREPORT INITIALIZATION DATE:01/11/24 TIME: 150 PATIENT: ESTRELLITA BANERJEE UNIT #: [id number]#: [id number] [address] [birth year] AGE: 58 SEX: F ATTEND: Beverly Kelsey AUTHOR: Jarocho Lundberg MDREPT SERVICE DT/TIME: 01/11/24 1509* ALL edits or amendments must be made on the electronic/computer document * SubjectiveChief complaint:Head and neck infectionHPI:Subjectively, patient reports feeling about the same and not significantly better. Still has throat discomfort. Denies other acute or new complaints currently. S/p bedside biopsy of the tonsils by ENT yesterday. No major overnight events. Objective GeneralVS/I O:Vital SignsDate Temp Pulse Resp B/P B/P Mean Pulse Ox MlI331/04-01/10 97.3-98.1 81-105 14-15 113-148/78-94 89.5-112.3 93-96 Last Documented: Result Date Time Pulse Ox 93 03 1549 B/P 146/93 01/10 1549 B/P Mean 110.9 01/10 1549 Temp 97.7 / 1549 Pulse 81 / 1549 Resp 15 01/10 1549 O2 Delivery Room air 01/08 0345 Vital Signs: Date Time Temp Pulse Resp B/P B/P Pulse O2 O2 Flow FiO2 Mean Ox Delivery Rate 01/10 1549 97.7 81 15 146/93 110.9 93 03/ 1048 97.5 90 15 113/78 89.5 95 03/05 0713 98.1 85 15 142/89 106.6 94 03/05 0408 97.7 105 14 133/93 106.5 94 03/04 1941 97.3 84 14 148/94 112.3 96 24 hour I O ending at 0700: 05 0700 01/09 1900 Intake Total Output Total Balance Number Voids 2 PATIENT WEIGHT: Weight (lb): Weight (oz): Weight (kg): 43.500 Physical ExamGeneral appearance: chronically ill appearing, frail, alert, awake, no acute distressENT: pharyngeal erythema, tonsillar exudate, tonsillar swellingCardiovascular: regular rate rhythm, no murmurRespiratory: clear to auscultation, aerating wellAbdomen: non-tender, soft, no distentionExtremities: no cyanosis, no edemaNeuro/COMPUTER GRAPHIC DESIGNER: alert, oriented X 3, no motor deficitsSkin: dry, no rash Diagnosis, Assessment PlanFree Text A P: Assessment: Ms. Banerjee is a 58-year-old female who was transferred from an outside hospital after she was found to have bilateral palatine tonsillar abscesses, soft palate abscess and associated bilateral jugulodigastric lymphadenopathy on imaging. There was also oral candidiasis. There is no reported significant past medical history. Patient does endorse smoking half a pack per day at the time of admission. *Peritonsillar and palatine abscesses*Oral thrush*Leukopenia*Penicillin allergy*Tobacco abuse disorder -S/p bedside biopsy by ENT 01/10/2024. Plan: -Continue ceftriaxone + metronidazole.-Continue fluconazole for oral thrush.-Follow biopsy results. -Overall, would plan on a 2-week course of antibiotics, with transition to oral agents (likely cefpodoxime + metronidazole + fluconazole) on discharge to finishtreatment. CURRENT ANTIMICROBIALS:Ceftriaxone + metronidazole, started 01/05/2024, day 6Fluconazole, started 01/05/2024, day 6 at 1850 RPT #:[id number] OF REPORTPRProgress [id number]:09:00G.[id number] AVAvailable for patient noviLDBQONQUIXRGJO3109-44-67B43:50:28 [facility] 2024-01-11 14:26:00 [id number] wY/9EDpZqXOs70CDOz/Y1 YqYLD1JNWcxM2gni2ZsuIdcRxmQD7TyoTq8719-59- 05T14:26:00 [facility] ([facility])Ear/Nose/Throat Progress NoteREPORT#:[id number] REPORT STATUS: SignedREPORT INITIALIZATION DATE:01/11/24 TIME: 1425 PATIENT: ESTRELLITA BANERJEE UNIT #: [id number]#: [id number] [address] [birth year] AGE: 58 SEX: F ATTEND: Beverly Kelsey AUTHOR: Jan Patel Jr MDREPT SERVICE DT/TIME: 01/11/241425* ALL edits or amendments must be made on the electronic/computer document * SubjectiveHPI:58-year-old female with bilateral enlarged tonsils and 1 to 2 weeks of increasing and worsening throat pain. Patient has been afflicted with upper respiratory symptoms over that time as well. She is generally able to swallow but notes significant pain and discomfort when she does so. Presently no fevers, chills, night sweats, weight loss, or fatigue. She feels significantly better following transfer to [facility] and administration of IV meds. She has not had significant improvement in her throat symptoms despite abx and history of steroids. Objective Physical ExamHead/eyes: atraumatic, clear cornea, EOMI, normal conjunctiva/sclera, normal eyelids/periorb., normocephalic, PERRLENT: Ears: RT normal auricles, RT normal EACs, RT normal TMs middle ears, LT normal auricles, LT normal EACs, LT normal TMs middle ears Nose: normal external nose Oral cavity: tonsil erythema/exudate, tonsil hypertrophy, pharyngeal erythemaNeuro/COMPUTER GRAPHIC DESIGNER: alert, oriented X 3Skin: dry, intact Diagnosis, Assessment PlanFree text A P:58-year-old female with bilateral severe tonsillitis and hypertrophy. At this point in time given the relative resistance of the tonsils to respond to medication, alternative pathology must be suspected. Biopsies were obtained at bedside today using up-biting cup forceps of bilateraltonsils as well as the soft palate where the tonsil tissue also appears to extend from the palatine tonsils. The diffuse biopsies were sent for permanent pathology and result ought to be known within the next 48 hours. If inconclusive would recommend more invasive biopsy on Wednesday if patient is still meant to be in-house in that time. Frozen section imaging of the right tonsil demonstrated significant atypia of the cells but nothing that could be definitively called cancer. at 1429 RPT #:[id number] OF REPORTPRProgress [id number]:26:00G.[id number] AVAvailable for patient [id number]4W77:29:56 [facility] 2024-01-11 11:44:00 [id number]+IR4G8 44hzEmyDVyz9woDsL9tLnT+Hu8S1d7+QHK5317-27- 05T11:44:00 [facility] ([facility])Nephrology Progress NoteREPORT#:[id number] REPORT STATUS: SignedREPORT INITIALIZATION DATE:01/11/24 TIME: 1143 PATIENT: ESTRELLITA BANERJEE UNIT #: [id number]#: [id number] [address] [birth year] AGE: 58 SEX: F ATTEND: Beverly Kelsey AUTHOR: Radha Amos APRNNPREPT SERVICE DT/TIME: 01/11/24 1144* ALL edits or amendments must be made on the electronic/computer document * Radha Amos 01/11/24 1144:SubjectiveChief complaint:Swollen of the neckHPI:The patient seen and examined. Resting in bed, breathing comfortably on RA. No acute complaints. Review of SystemsROS comments:A 12 point ROS is obtained and is negative unless specified in HPI Objective GeneralVS/I O:Vital Signs: Date Time Temp Pulse Resp B/P B/P Pulse O2 O2 Flow FiO2 Mean Ox Delivery Rate 01/10 1048 36.4 90 15 113/78 89.5 95 03/ 0713 36.7 85 15 142/89 106.6 94 03/ 0408 36.5 105 14 133/93 106.5 94 03/ 1941 36.3 84 14 148/94 112.3 96 03/ 1544 36.4 81 15 151/85 107.1 94 24 hour I O ending at 0700: 01/10 0700 01/09 1900 Intake Total Output Total Balance Number Voids 2 PATIENT WEIGHT: Weight (lb): Weight (oz): Weight (kg): 43.500 MedicationsActive Meds + DC'd Last 24 HrsFluconazole (DIFLUCAN) 200 MG Q24H PO Potassium Chloride (POTASSIUM CHLORIDE 20MEQ TAB.ER) 40 MEQ ONCE ONE PO (DC) Potassium Citrate (UROCIT-K) 1,080 MG BID PO (CKD) Metronidazole (FLAGYL) 500 MG Q12H PO (CAN) Thiamine HCl (THIAMINE HCL) 100 MG DAILY PO Magnesium Sulfate (MAGNESIUM SULFATE 4GM/SWFI 100ML) 100 ML ONCE ONE IV (DC) Metronidazole (FLAGYL) 500 MG Q12H PO Ceftriaxone Sodium (ROCEPHIN) 2,000 MG Q24H IV Sodium Chloride (SODIUM CHLORIDE) 20 MLCitalopram Hydrobromide (CITALOPRAM HYDROBROMIDE) 10 MG BEDTIME PO Enoxaparin Sodium (lovENOX) 30 MG Q24H SUBQ Methylprednisolone Sodium Succinate (Solu-Medrol 40 MG Vial) 40 MG Q12H IV Pantoprazole (PROTONIX) 40 MG DAILY@0600 PO Sterile Water (WATER FOR INJECTION) 1 ML ASDIR PRN IV Acetaminophen (TYLENOL) 650 MG Q4H PRN PRN PO Dextrose/Sodium Chloride (Dextrose 5% / 0.9% NaCl) 1,000 ML .[id number] IV Lorazepam (ATIVAN) 0.5 MG Q8H PRN PRN PO Fluconazole/Sodium Chloride (FLUCONAZOLE 400MG/NS 200ML) 200 ML Q24H IV Metronidazole/Sodium Chloride (metroNIDAZOLE 500MG/NS 100ML) 100 ML Q12H IV (DC) Dietitian nutrition assessmentThe data set between the solid lines has been imported from the dietitian's assessment. BMI Calculated: 16.5Nutrition related diagnosis: Nutrition diagnosis details: Nutrition problem: Severe malnutritionNutrition etiology: Social circumstancesNutrition signs and symptoms: severe muscle and fat lossNutrition prescription: 1. Continue full liquid diet as tolerated. 2. Recommend Ensure Plus TID and snacks TID to supplement meals.Dietitian name: Isamar Álvarez, MS, RD, LDAssessment completed: 01/06/24 Physical ExamGeneral appearance: alert, awake, oriented, no acute distressHead/eyes: atraumatic, clear cornea, normal conjunctiva/sclera, normocephalicENT: normal noseNeck: Swelling on right side of the neckCardiovascular: normal heart sounds, regular rate and rhythmRespiratory: aerating well, clear to auscultation, no distressAbdomen: non-tender, soft, no reboundExtremities: no edema ResultsFindings/Data:Laboratory Tests 01/10 01/10 01/10 0727 0732 0772 Chemistry Sodium (134 - 147 mEq/L) 131 L Potassium (3.4 - 5.0 mEq/L) 3.1 L Chloride (100 - 108 mEq/L) 98 L Carbon Dioxide (21 - 33 mEq/l) 19 L Anion Gap (0 - 20) 17 BUN (7 - 25 mg/dL) 8 Creatinine (0.6 - 1.3 mg/dL) 0.5 L Glomerular Filtr Rate (90 - 95) 108.0 H Glucose (77 - 141 mg/dL) 122 Serum Osmolality (275 - 295 MOS/KG) 274 L Calcium (8.0 - 10.5 mg/dL) 8.2 Phosphorus (2.5 - 4.9 MG/DL) 2.9 Magnesium (1.6 - 2.6 mg/dL) 2.27 Cortisol AM Sample (ug/dL) 14.30 Laboratory Tests 01/10 0726 Hematology WBC (4.5 - 11.0 x10 3/uL) 6.0 RBC (3.54 - 5.02 x10 6/uL) 3.81 Hgb (11.0 - 15.0 g/dL) 12.5 Hct (33.0 - 45.0 %) 36.0 MCV (81.0 - 99.0 fL) 94.5 MCH (27.0 - 33.0 pg) 32.8 MCHC (33.0 - 37.0 g/dL) 34.7 RDW (11.5 - 14.5 %) 14.4 Plt Count (150 - 400 x10 3/uL) 211 MPV (7.0 - 9.0 fL) 10.3 H Neut % (Auto) (56.0 - 77.0 %) 79.8 H Lymph % (Auto) (14.0 - 32.0 %) 9.7 L Fannin % (Auto) (4.8 - 9.0 %) 9.7 H Eos % (Auto) (0.3 - 3.7 %) 0.0 L Baso % (Auto) (0.0 - 2.0 %) 0.0 Neut # (Auto) (2.0 - 7.6 x10 3/uL) 4.78 Lymph # (Auto) (1.0 - 3.8 x10 3/uL) 0.58 L Fannin # (Auto) (0.1 - 0.8 x10 3/uL) 0.58 Eos # (Auto) (0.0 - 0.2 x10 3/uL) 0.00 Baso # (Auto) (0.0 - 0.2 x10 3/uL) 0.00 Abs Immat Gran (auto) (0.00 - 0.03 x10 3/uL) 0.05 H Immature Gran % (0.0 - 2.0 %) 0.8 Nucleated RBC % (0 - 0 %) 0.0 Nucleated RBCs # (Man) (0.0 - 0.1 x10 3/uL) 0.00 Diagnosis, Assessment PlanFree Text A P:Assessment and Plan: Persistent Hypokalemia/Hypomagnesemia-K+ replaced aggressively, Mg improved s/p replacement. Daily K-citrate supplement, monitor. -Likely 2/2 GI losses from diarrhea, h/o ETOH abuse, also on PPI-Urine anion gap: Pending, renin/luciana pending, cortisol unremarkable. TTK, indicating renal potassium wasting-Monitor closely B/L Peritonsillar Abscess-Neck CT w/ contrast (01/06/24): Significant swelling of the soft palate and possible phlegmonous changes with no discrete organized collection. Prominence of the adenoids and pillar tonsils encroaching upon the airway with no discrete tonsillar or peritonsillar abscess. Swelling of the supraglottic larynx and leftglossotonsillar sulcus. Enlarged bilateral level 2 and 3 lymphadenopathy associated with suppurative changes. There is extra chela extension of the purulent material into the subcutaneous tissues and skin of the right side at the level of the hyoid bone. Pedunculated hypodense lesion in the left nasal passageway encroaching upon the nasopharynx likely an inflammatory polyp. -Seen by ENT and ID. Abx (Rocephin/Flagyl) and steroids. Oral Candidiasis-Fluconazole per ID Anxiety-Psych following Tobacco/ETOH Abuse-Cessation counseling, psych following-Thiamine VTE Prophylaxis (Lovenox) Discussed the plan with the patient, patient's nurse, and . Juan Arenas 01/11/24 4042:Attestations Physician AttestationReviewed findings plan:Patient examined replace K, mag acceptable peritonisllar abscess, on antibioticshistory of alcohol abuse agree iwth above A/P. at 1523 at 9154 RPT #:[id number] OF REPORTPRProgress [id number]:44:00G.[id number] AVAvailable for patient ibxmOCRTNFWMYDHHRR8033-34-96P58:24:05 [facility] 2024-01-10 17:14:00 [id number] jJfclpHJS/oGqbghODLMxh V/dXHIPncbxcgRUFhwkQ3+1Xalt1BAqIsQ4807-26- 04T17:14:00 [facility] ([facility])Infectious Dis. Progress NoteREPORT#:[id number] REPORT STATUS: SignedREPORT INITIALIZATION DATE:01/10/24 TIME: 1713 PATIENT: ESTRELLITA BANERJEE UNIT #: [id number]#: [id number] [address] [birth year] AGE: 58 SEX: F ATTEND: Beverly Kelsey AUTHOR: Jaorcho Lundberg MDREPT SERVICE DT/TIME: 01/10/241713* ALL edits or amendments must be made on the electronic/computer document * SubjectiveChief complaint:Head and neck infectionHPI:Subjectively, patient reports feeling about the same and not significantly better. Still has throat discomfort. Denies other acute or new complaints currently. No major overnight events. Objective GeneralVS/I O:Vital SignsDate Temp Pulse Resp B/P B/P Mean Pulse Ox XeO136/03-/04 97.3-98.1 70-104 15-16 126-151/84-90 99.4-107.1 92-95 Last Documented: Result Date Time Pulse Ox 94 03/ 1544 B/P 151/85 03/ 1544 B/P Mean 107.1 03/ 1544 Temp 97.5 03/ 1544 Pulse 81 03/ 1544 Resp 15 / 1544 O2 Delivery Room air 01/08 0345 Vital Signs: Date Time Temp Pulse Resp B/P B/P Pulse O2 O2 Flow FiO2 Mean Ox Delivery Rate 03/04 1544 97.5 81 15 151/85 107.1 94 03/04 1031 98.1 81 15 128/88 101.2 94 03/04 0706 97.9 88 15 126/86 99.4 92 03/04 0410 98.1 104 16 136/90 105.1 95 03/03 2022 97.3 70 16 131/84 99.5 95 24 hour I O ending at 0700: 03/ 0700 03/ 1900 Intake Total 620.00 800.00 Output Total Balance 620.00 800.00 Intake, IV 500.00 700.00 Intake, Oral 120 100 Number Voids 5 5 PATIENT WEIGHT: Weight (lb): Weight (oz): Weight (kg): 43.500 Physical ExamGeneral appearance: chronically ill appearing, alert, awake, no acute distressENT: exudate, pharyngeal erythema, tonsillar exudate, tonsillar swellingCardiovascular: regular rate rhythm, no murmurRespiratory: clear to auscultation, aerating wellAbdomen: non-tender, soft, no distentionExtremities: no cyanosis, no edemaNeuro/COMPUTER GRAPHIC DESIGNER: alert, oriented X 3, no motor deficitsSkin: dry, no rash Diagnosis, Assessment PlanFree Text A P: Assessment: Ms. Banerjee is a 58-year-old female who was transferred from an outside hospital after she was found to have bilateral palatine tonsillar abscesses, soft palate abscess and associated bilateral jugulodigastric lymphadenopathy on imaging. There was also oral candidiasis. There is no reported significant past medical history. Patient does endorse smoking half a pack per day at the time of admission. *Peritonsillar and bilateral abscesses*Oral thrush*Leukopenia*Penicillin allergy*Tobacco abuse disorder Plan: -Continue ceftriaxone + metronidazole.-Continue fluconazole for oral thrush.-ENT services following. Agree with plans for biopsy. CURRENT ANTIMICROBIALS:Ceftriaxone + metronidazole, started 01/05/2024, day 5Fluconazole, started 01/05/2024, day 5 at 1721 RPT #:[id number] OF REPORTPRProgress [id number]:14:00G.[id number] AVAvailable for patient yhnkJHOAAENUQWLGBM7646-06-37U68:21:41 [facility] 2024-01-10 15:05:00 [id number] 4EskspXSAiGuhMssTEdaMQ0UA9v/ZAJdVl4060-61- 04T15:05:00 [facility] ([facility])Nephrology Consultation NoteREPORT#:[id number] REPORT STATUS: SignedREPORT INITIALIZATION DATE:01/10/24 TIME: 1505 PATIENT: ESTRELLITA BANERJEE UNIT #: [id number]#: [id number] [address] [birth year] AGE: 58 SEX: F ATTEND: Beverly Kelsey AUTHOR: Radha Amos APRNNPREPT SERVICE DT/TIME: 01/10/24 1505* ALL edits or amendments must be made on the electronic/computer document * Radha Amos 01/10/24 1505:History of Present IllnessRequesting clinician: Chris Davenport for consult:Persistent hypokalemiaChief complaint:Swollen of the neckPCP:PCP: No Primary or Family Physician HPI: is a 58 years old female with a PMH significant for anxiety, current every smoker, drinks 4-5 beers everyday. [facility] w/ chief c/o swelling of the neck. The patient's room mates noticed the swelling and took her to ED/urgent care from where she transferred to [facility] [place] for ENT evaluation. Initial vital signs in the ER showed temperature of 36.6 C, pulse 91/min, respiration 20/min, pressure 105/62 mm Hg and SpO2 99%. Laboratory data showed severe hypokalemia with potassium of 2.6, normal renalfunction with BUN of less than 5 and creatinine 1.4, WBC 6K on admission. Neck CT w/ contrast showed significant swelling of the soft palate and possible phlegmonous changes with no discrete organized collection. Prominence of the adenoids and pillar tonsils encroaching upon the airway with no discrete tonsillar or peritonsillar abscess. Swelling of the supraglottic larynx and leftglossotonsillar sulcus. Enlarged bilateral level 2 and 3 lymphadenopathy associated with suppurative changes. There is extra chela extension of the purulent material into the subcutaneous tissues and skin of the right side at the level of the hyoid bone. Pedunculated hypodense lesion in the left nasal passageway encroaching upon the nasopharynx likely an inflammatory polyp. The patient was seen by ENT and ID. Started on abx and steroids. Nephrology is consulted for the management of persistent hypokalemia. The patient seen and examined. Resting in bed, breathing comfortably on RA. C/o tenderness on right side of the neck, mild diarrhea x 3 episode today, no other complaints. History - Adult longitudinalAdditional medical history:AnxietyAdditional surgical history:C-sections x2B/l bunionectomyR hand surgeryAdditional family history:She denies any diseases in familyAlcohol use: Alcohol useDrug use: Denies recreational drugsSmoking status for patients 13 years old or older: Current every day smokerMedications:Current Hospital Medications:Anti-Infective Agents Sig/Barbara Start time Last Medication Dose Route Stop Time Status Admin Metronidazole 500 MG Q12H 01/09 2045 CAN (FLAGYL) PO 01/11 0844 Metronidazole 500 MG Q12H 01/09 1800 AC (FLAGYL) PO 01/19 1759 Ceftriaxone Sodium 2,000 MG Q24H 01/09 1730 AC (ROCEPHIN) IV 01/19 1729 Sodium Chloride 20 ML (SODIUM CHLORIDE) Fluconazole/Sodium 200 ML Q24H 01/05 1330 AC 01/09 Chloride IV 01/18 1329 1309 (FLUCONAZOLE 400MG/ NS 200ML) Metronidazole/Sodium 100 ML Q12H 01/05 0845 DC 01/09 Chloride IV 01/11 0844 0851 (metroNIDAZOLE 500MG/ NS 100ML) Ceftriaxone Sodium 2,000 MG Q24H 01/05 0830 DC 01/08 (ROCEPHIN) IV 01/09 0829 0824 Sodium Chloride 20 ML (SODIUM CHLORIDE) Blood Formation,Coagulation Sig/Barbara Start time Last Medication Dose Route Stop Time Status Admin Enoxaparin Sodium 30 MG Q24H 1800 AC 01/09 (lovENOX) SUBQ 04/05 1759 1657 Central Nervous System Agents Sig/Barbara Start time Last Medication Dose Route Stop Time Status Admin Magnesium Sulfate 100 ML ONCE ONE 01/09 1815 UNV (MAGNESIUM SULFATE IV 01/09 2214 4GM/SWFI 100ML) Citalopram 10 MG BEDTIME 01/06 2100 AC 01/08 Hydrobromide PO 04/06 2059 2123 (CITALOPRAM HYDROBROMIDE) Acetaminophen 650 MG Q4H PRN PRN 01/05 1745 AC 01/09 (TYLENOL) PO 04/04 1744 1659 Lorazepam 0.5 MG Q8H PRN PRN 01/05 1730 AC 01/08 (ATIVAN) PO 04/04 1729 2123 Electrolytic, Caloric, And Issac Sig/Barbara Start time Last Medication Dose Route Stop Time Status Admin Potassium Chloride 40 MEQ Q4H 01/09 0900 DC 01/09 (K-RICO 20 MEQ PACKET) PO 01/09 1301 1309 Dextrose/Sodium 1,000 ML .[id number] 01/05 1730 AC 01/09 Chloride IV 04/04 1729 1659 (Dextrose 5% / 0.9% NaCl) Gastrointestinal Drugs Sig/Barbara Start time Last Medication Dose Route Stop Time Status Admin Pantoprazole 40 MG DAILY@0600 1100 AC 01/09 (PROTONIX) PO 04/05 1059 0508 Hormones And Synthetic Substit Sig/Barbara Start time Last Medication Dose Route Stop Time Status Admin Methylprednisolone 4 MG AC BK 01/09 0730 DC (MEDROL) PO 01/09 0731 Methylprednisolone 4 MG BEDTIME 01/08 2100 DC (MEDROL) PO 01/08 2101 Methylprednisolone 40 MG Q12H 1700 AC 01/09 Sodium Succinate IV 02/04 1659 1657 (Solu-Medrol 40 MG Vial) Pharmaceutical Aids Sig/Barbara Start time Last Medication Dose Route Stop Time Status Admin Sterile Water 1 ML ASDIR PRN 1100 AC 01/09 (WATER FOR INJECTION) IV 04/05 1059 1657 Allergies:Coded Allergies:Penicillins (HIVES 01/05/24)codeine (HIVES 01/05/24) Review of SystemsAdditional notes:A 12 point ROS is obtained and is negative unless specified in HPI Objective GeneralVS/I O:Vital Signs: Date Time Temp Pulse Resp B/P B/P Pulse O2 O2 Flow FiO2 Mean Ox Delivery Rate 01/09 1544 36.4 81 15 151/85 107.1 94 / 1031 36.7 81 15 128/88 101.2 94 / 0706 36.6 88 15 126/86 99.4 92 / 0410 36.7 104 16 136/90 105.1 95 / 202 36.3 70 16 131/84 99.5 95 24 hour I O ending at 0700: 01/09 0700 01/08 1900 Intake Total 620.00 800.00 Output Total Balance 620.00 800.00 Intake, IV 500.00 700.00 Intake, Oral 120 100 Number Voids 5 5 PATIENT WEIGHT: Weight (lb): Weight (oz): Weight (kg): 43.500 Medications:Active Meds + DC'd Last 24 HrsMetronidazole (FLAGYL) 500 MG Q12H PO (CAN) Magnesium Sulfate (MAGNESIUM SULFATE 4GM/SWFI 100ML) 100 ML ONCE ONE IV (CKD) Metronidazole (FLAGYL) 500 MG Q12H PO Ceftriaxone Sodium (ROCEPHIN) 2,000 MG Q24H IV Sodium Chloride (SODIUM CHLORIDE) 20 MLPotassium Chloride (K-RICO 20 MEQ PACKET) 40 MEQ Q4H PO (DC) Methylprednisolone (MEDROL) 4 MG AC BK PO (DC) Methylprednisolone (MEDROL) 4 MG BEDTIME PO (DC) Citalopram Hydrobromide (CITALOPRAM HYDROBROMIDE) 10 MG BEDTIME PO Enoxaparin Sodium (lovENOX) 30 MG Q24H SUBQ Methylprednisolone Sodium Succinate (Solu-Medrol 40 MG Vial) 40 MG Q12H IV Pantoprazole (PROTONIX) 40 MG DAILY@0600 PO Sterile Water (WATER FOR INJECTION) 1 ML ASDIR PRN IV Acetaminophen (TYLENOL) 650 MG Q4H PRN PRN PO Dextrose/Sodium Chloride (Dextrose 5% / 0.9% NaCl) 1,000 ML .[id number] IV Lorazepam (ATIVAN) 0.5 MG Q8H PRN PRN PO Fluconazole/Sodium Chloride (FLUCONAZOLE 400MG/NS 200ML) 200 ML Q24H IV Metronidazole/Sodium Chloride (metroNIDAZOLE 500MG/NS 100ML) 100 ML Q12H IV (DC) Ceftriaxone Sodium (ROCEPHIN) 2,000 MG Q24H IV (DC) Sodium Chloride (SODIUM CHLORIDE) 20 ML Physical ExamGeneral appearance: alert, awake, oriented, no acute distressHead/eyes: atraumatic, clear cornea, normal conjunctiva/sclera, normocephalicENT: normal noseNeck: Swelling on right side of the neckCardiovascular: normal heart sounds, regular rate and rhythmRespiratory: aerating well, clear to auscultation, no distressAbdomen: non-tender, soft, no reboundExtremities: no edema ResultsFindings/Data:Laboratory Tests 01/09 01/09 0659 0659 Chemistry Sodium (134 - 147 mEq/L) 134 Potassium (3.4 - 5.0 mEq/L) 2.9 *L Chloride (100 - 108 mEq/L) 101 Carbon Dioxide (21 - 33 mEq/l) 19 L Anion Gap (0 - 20) 17 BUN (7 - 25 mg/dL) 9 Creatinine (0.6 - 1.3 mg/dL) 0.5 L Glomerular Filtr Rate (90 - 95) 108.0 H Glucose (77 - 141 mg/dL) 100 Calcium (8.0 - 10.5 mg/dL) 8.3 Magnesium (1.6 - 2.6 mg/dL) 1.23 L Laboratory Tests 01/09 0659 Hematology WBC (4.5 - 11.0 x10 3/uL) 7.8 RBC (3.54 - 5.02 x10 6/uL) 3.90 Hgb (11.0 - 15.0 g/dL) 12.9 Hct (33.0 - 45.0 %) 37.9 MCV (81.0 - 99.0 fL) 97.2 MCH (27.0 - 33.0 pg) 33.1 H MCHC (33.0 - 37.0 g/dL) 34.0 RDW (11.5 - 14.5 %) 14.5 Plt Count (150 - 400 x10 3/uL) 235 MPV (7.0 - 9.0 fL) 10.9 H Neut % (Auto) (56.0 - 77.0 %) 82.4 H Lymph % (Auto) (14.0 - 32.0 %) 9.1 L Fannin % (Auto) (4.8 - 9.0 %) 7.5 Eos % (Auto) (0.3 - 3.7 %) 0.0 L Baso % (Auto) (0.0 - 2.0 %) 0.0 Neut # (Auto) (2.0 - 7.6 x10 3/uL) 6.46 Lymph # (Auto) (1.0 - 3.8 x10 3/uL) 0.71 L Fannin # (Auto) (0.1 - 0.8 x10 3/uL) 0.59 Eos # (Auto) (0.0 - 0.2 x10 3/uL) 0.00 Baso # (Auto) (0.0 - 0.2 x10 3/uL) 0.00 Abs Immat Gran (auto) (0.00 - 0.03 x10 3/uL) 0.08 H Immature Gran % (0.0 - 2.0 %) 1.0 Nucleated RBC % (0 - 0 %) 0.0 Nucleated RBCs # (Man) (0.0 - 0.1 x10 3/uL) 0.00 Laboratory Tests 01/09 1520 Urines Ur Random Sodium (MEQ/L) 184 Ur Random Potassium (MEQ/L) 35.6 Diagnosis, Assessment Plan Free Text DxA P NotesFree text DxA P notes:Assessment and Plan: Persistent Hypokalemia/Hypomagnesemia-K+ replaced aggressively, hypomagnesemia-Mg replaced. Daily K-citrate supplement, monitor. -Likely 2/2 GI losses from diarrhea, h/o ETOH abuse, also on PPI-Check urine anion gap, TTKG, renin, luciana and cortisol to r/o other etiology-Monitor closely B/L Peritonsillar Abscess-Neck CT w/ contrast (01/06/24): Significant swelling of the soft palate and possible phlegmonous changes with no discrete organized collection. Prominence of the adenoids and pillar tonsils encroaching upon the airway with no discrete tonsillar or peritonsillar abscess. Swelling of the supraglottic larynx and leftglossotonsillar sulcus. Enlarged bilateral level 2 and 3 lymphadenopathy associated with suppurative changes. There is extra chela extension of the purulent material into the subcutaneous tissues and skin of the right side at the level of the hyoid bone. Pedunculated hypodense lesion in the left nasal passageway encroaching upon the nasopharynx likely an inflammatory polyp. -Seen by ENT and ID. Started on abx (Rocephin/Flagyl) and steroids. Oral Candidiasis-Fluconazole per ID Anxiety-Psych following Tobacco/ETOH Abuse-Cessation counseling, psych following-Thiamine VTE Prophylaxis (Lovenox) Further recommendations based on the clinical course of the patient. I would like to thank for the consult and involving us in the care of this patient. Discussed the plan with the patient, patient's nurse, and . Juan Arenas 01/10/24 7073:Attestations Physician AttestationReviewed findings plan:Patient examined 58 years old female with a PMH significant for anxiety, currentevery smoker, drinks 4-5 beers everyday. [facility] w/ chief c/o swelling of the neck. The patient's room mates noticed the swelling and took her to ED/urgent care from where [facility]. Initial vital signs in the ER showed temperature of 36.6 C, pulse 91/min, respiration 20/min, pressure 105/62 mm Hg and SpO2 99%. Laboratory data showed severe hypokalemia with potassium of 2.6, normal renalfunction with BUN of less than 5 and creatinine 1.4, WBC 6K on admission. Neck CT w/ contrast showed significant swelling of the soft palate and possible phlegmonous changes with no discrete organized collection. Prominence of the adenoids and pillar tonsils encroaching upon the airway with no discrete tonsillar or peritonsillar abscess. Swelling of the supraglottic larynx and leftglossotonsillar sulcus. Enlarged bilateral level 2 and 3 lymphadenopathy associated with suppurative changes. There is extra chela extension of the purulent material into the subcutaneous tissues and skin of the right side at the level of the hyoid bone. Pedunculated hypodense lesion in the left nasal passageway encroaching upon the nasopharynx likely an inflammatory polyp. The patient was seen by ENT and ID. Started on abx and steroids. Replace K and Magnesium work up as above, history of smoking and alcohol abuse disorder, antibitoics for peritonsillar abscess agree with above A/P. at 1818 at 224[address] [facility] #:[id number] OF REPORTTDYklnmvwmnlgr4055-86-36E62:05:00 [id number] for patient jdzxWPVFUDZSYZTVWT8397-32-06A46:18:41 [facility] 2024-01-10 13:49:00 [id number]/SjAPQzIjmaN0 KhhNX/7qYc9GMj5HOFw81SQ8a2zflAzqv/T13:49:00 [facility] ([facility])Hospitalist Progress NoteREPORT#:[id number] REPORT STATUS: SignedREPORT INITIALIZATION DATE:01/10/24 TIME: 1348 PATIENT: ESTRELLITA BANERJEE UNIT #: [id number]#: [id number] [address] [birth year] AGE: 58 SEX: F ATTEND: Beverly Kelsey MDADM AUTHOR: Beverly Kelsey MDREPT SERVICE DT/TIME: 01/10/24 1349* ALL edits or amendments must be made on the electronic/computer document * SubjectiveChief complaint:Follow-up of lymphadenopathy and suppurative tonsillitis Review of SystemsConstitutional:Reports: generalized weakness. All systems rev neg: except as noted Objective GeneralVS/I O:Vital Signs: Date Time Temp Pulse Resp B/P B/P Pulse O2 O2 Flow FiO2 Mean Ox Delivery Rate 01/09 1031 98.1 81 15 128/88 101.2 94 01/09 0706 97.9 88 15 126/86 99.4 92 01/09 0410 98.1 104 16 136/90 105.1 95 01/08 2022 97.3 70 16 131/84 99.5 95 01/08 1649 97.5 76 16 153/92 112.2 97 24 hour I O ending at 0700: 01/09 0700 01/08 1900 Intake Total 620.00 800.00 Output Total Balance 620.00 800.00 Intake, IV 500.00 700.00 Intake, Oral 120 100 Number Voids 5 5 PATIENT WEIGHT: Weight (lb): Weight (oz): Weight (kg): 43.500 Medications:Active Meds + DC'd Last 24 HrsPotassium Chloride (K-RICO 20 MEQ PACKET) 40 MEQ Q4H PO (DC) Methylprednisolone (MEDROL) 4 MG AC BK PO (DC) Methylprednisolone (MEDROL) 4 MG BEDTIME PO (DC) Citalopram Hydrobromide (CITALOPRAM HYDROBROMIDE) 10 MG BEDTIME PO Enoxaparin Sodium (lovENOX) 30 MG Q24H SUBQ Methylprednisolone Sodium Succinate (Solu-Medrol 40 MG Vial) 40 MG Q12H IV Pantoprazole (PROTONIX) 40 MG DAILY@0600 PO Sterile Water (WATER FOR INJECTION) 1 ML ASDIR PRN IV Acetaminophen (TYLENOL) 650 MG Q4H PRN PRN PO Dextrose/Sodium Chloride (Dextrose 5% / 0.9% NaCl) 1,000 ML .[id number] IV Lorazepam (ATIVAN) 0.5 MG Q8H PRN PRN PO Fluconazole/Sodium Chloride (FLUCONAZOLE 400MG/NS 200ML) 200 ML Q24H IV Metronidazole/Sodium Chloride (metroNIDAZOLE 500MG/NS 100ML) 100 ML Q12H IV Ceftriaxone Sodium (ROCEPHIN) 2,000 MG Q24H IV (DC) Sodium Chloride (SODIUM CHLORIDE) 20 ML Dietitian nutrition assessmentThe data set between the solid lines has been imported from the dietitian's assessment. BMI Calculated: 16.5Nutrition related diagnosis: Nutrition diagnosis details: Nutrition problem: Severe malnutritionNutrition etiology: Social circumstancesNutrition signs and symptoms: severe muscle and fat lossNutrition prescription: 1. Continue full liquid diet as tolerated. 2. Recommend Ensure Plus TID and snacks TID to supplement meals.Dietitian name: Isamar Álvarez MS, RD, LDAssessment completed: 01/06/24 Free Text Obj NotesFree Text Obj Notes:PHYSICAL EXAMINATION:General appearance: awake, no acute distressHead/Eyes: atraumatic, face is symmetricENT: moist mucosal membranesNeck: Lymphadenopathy more prominent on the right sideCardiovascular: no murmur or rub heardRespiratory: Clear to auscultation bilaterallyAbdomen/GI: active bowel sounds, soft, non-tender, no distentionExtremities: moves all, bilateral lower extremities, no edema, no cyanosisNeuro/COMPUTER GRAPHIC DESIGNER: alert, oriented X 3, no focal deficitsSkin: dry, intactPsychiatry: Mood appropriate Diagnosis, Assessment Plan Free Text DxA P NotesFree text DxA P notes:Assessment/plan:Bilateral palatine tonsillar abscessJugulodigastric lymphadenopathyOral thrushAnxietySevere hypokalemiaPoor p.o. intakeVolume depletion 01/10/2024atient is doing okVitals reviewed-acceptable Labs reviewed-acceptable, again hypokalemiaPotassium replaced IV and nephrology consulted for persistent hypokalemiaCheck magnesium levelson IV antibiotics ENT planning on lymph node biopsy todayRepeat labs in a.m. 01/09/2024atient is doing okVitals reviewed-acceptable Labs reviewed-acceptable, leukocytosis improved, mild hypokalemiaIV replacement requested but patient preferred p.o.on IV antibiotics ENT evaluated todayRepeat labs in a.m. 01/08/2024atient is doing okVitals reviewed-acceptable Labs reviewed-acceptable, some leukocytosison IV antibiotics dc planning pending ID clearance 01/07/2024atient is doing little betterShwolfgang still has an altered voice because of the swelling on her neck and in throat, seems to be somewhat forgetfull and confused about what is happening around her says anxiety is under controlpsych eval requested She feels some difficulty in swallowing but able to take in some liquidsVitals reviewed acceptableLabs reviewed,WBC better, still hypokalemiccontinue IV steroidscontinue PPIENT and infectious disease on boardContinue Ativan as neededNot ready for discharge home yet 01/06/2024atient is doing little betterShwolfgang still has an altered voice because of the swelling on her neck and in throatShe feels some difficulty in swallowing but able to take in some liquidsVitals reviewed acceptableLabs reviewed, worsening leukocytosis, still hypokalemicDC Medrol DosepakStart IV steroidsStart PPIENT and infectious disease on boardContinue Ativan as neededNot ready for discharge home yet 01/05/2024atient was given IV clindamycin and IV fluconazole in urgent careShe was also given 1 dose of IV steroidsHIV negativeCOVID-negativeInfectious disease has been consultedImaging not available for me to review at this timeAs per ER she had lymphadenopathy and tonsillar abscessENT has been consultedfull liquid/Soft dietIV fluidsReplaced potassiumRepeat labs requestedPain controlAs needed Ativan for anxietyDiscussed with nurse at bedside at 1351 RPT #:[id number] OF REPORTPRProgress [id number]:49:00G.[id number] AVAvailable for patient ioyaQXKXPGILOPNDTU4102-09-84U97:52:22 [facility] 2024-01-10 08:50:00 [id number] 3+CfiyCpfhjIoGZBmoFfO/ He8mVpLKils6misVYNYPi6VFRu9KaX7DCH5827-30- 04T08:50:00 [facility] Progress NoteREPORT#:[id number] REPORT STATUS: SignedREPORT INITIALIZATION DATE:01/10/24 TIME: 0850 PATIENT: ESTRELLITA BANERJEE UNIT #: [id number]#: [id number] [address] [birth year] AGE: 58 SEX: F ATTEND: Beverly Kelsey MDA AUTHOR: Beverly Kelsey MDREPT SERVICE DT/TIME: 01/09/24 0850* ALL edits or amendments must be made on the electronic/computer document * SubjectiveChief complaint:Follow-up of lymphadenopathy and suppurative tonsillitis Review of SystemsConstitutional:Reports: generalized weakness. All systems rev neg: except as noted Objective GeneralVS/I O:Vital Signs: Date Time Temp Pulse Resp B/P B/P Pulse O2 O2 Flow FiO2 Mean Ox Delivery Rate 01/09 1031 98.1 81 15 128/88 101.2 94 / 0706 97.9 88 15 126/86 99.4 92 / 0410 98.1 104 16 136/90 105.1 95 01/08 2022 97.3 70 16 131/84 99.5 95 01/08 1649 97.5 76 16 153/92 112.2 97 24 hour I O ending at 0700: 01/09 0700 01/08 1900 Intake Total 620.00 800.00 Output Total Balance 620.00 800.00 Intake, IV 500.00 700.00 Intake, Oral 120 100 Number Voids 5 5 PATIENT WEIGHT: Weight (lb): Weight (oz): Weight (kg): 43.500 Medications:Active Meds + DC'd Last 24 HrsMethylprednisolone (MEDROL) 4 MG AC BK PO (DC) Methylprednisolone (MEDROL) 4 MG BEDTIME PO (DC) Potassium Chloride (KCL 10MEQ/SWFI 50ML) 50 ML Q1HR IV (DC) Citalopram Hydrobromide (CITALOPRAM HYDROBROMIDE) 10 MG BEDTIME PO Enoxaparin Sodium (lovENOX) 30 MG Q24H SUBQ Methylprednisolone Sodium Succinate (Solu-Medrol 40 MG Vial) 40 MG Q12H IV Pantoprazole (PROTONIX) 40 MG DAILY@0600 PO Sterile Water (WATER FOR INJECTION) 1 ML ASDIR PRN IV Acetaminophen (TYLENOL) 650 MG Q4H PRN PRN PO Dextrose/Sodium Chloride (Dextrose 5% / 0.9% NaCl) 1,000 ML .[id number] IV Lorazepam (ATIVAN) 0.5 MG Q8H PRN PRN PO Fluconazole/Sodium Chloride (FLUCONAZOLE 400MG/NS 200ML) 200 ML Q24H IV Metronidazole/Sodium Chloride (metroNIDAZOLE 500MG/NS 100ML) 100 ML Q12H IV Ceftriaxone Sodium (ROCEPHIN) 2,000 MG Q24H IV (DC) Sodium Chloride (SODIUM CHLORIDE) 20 ML ResultsFindings/Data:Laboratory Tests 01/09 0659 Chemistry Sodium (134 - 147 mEq/L) 134 Potassium (3.4 - 5.0 mEq/L) 2.9 *L Chloride (100 - 108 mEq/L) 101 Carbon Dioxide (21 - 33 mEq/l) 19 L Anion Gap (0 - 20) 17 BUN (7 - 25 mg/dL) 9 Creatinine (0.6 - 1.3 mg/dL) 0.5 L Glomerular Filtr Rate (90 - 95) 108.0 H Glucose (77 - 141 mg/dL) 100 Calcium (8.0 - 10.5 mg/dL) 8.3 Laboratory Tests 01/09 0659 Hematology WBC (4.5 - 11.0 x10 3/uL) 7.8 RBC (3.54 - 5.02 x10 6/uL) 3.90 Hgb (11.0 - 15.0 g/dL) 12.9 Hct (33.0 - 45.0 %) 37.9 MCV (81.0 - 99.0 fL) 97.2 MCH (27.0 - 33.0 pg) 33.1 H MCHC (33.0 - 37.0 g/dL) 34.0 RDW (11.5 - 14.5 %) 14.5 Plt Count (150 - 400 x10 3/uL) 235 MPV (7.0 - 9.0 fL) 10.9 H Neut % (Auto) (56.0 - 77.0 %) 82.4 H Lymph % (Auto) (14.0 - 32.0 %) 9.1 L Fannin % (Auto) (4.8 - 9.0 %) 7.5 Eos % (Auto) (0.3 - 3.7 %) 0.0 L Baso % (Auto) (0.0 - 2.0 %) 0.0 Neut # (Auto) (2.0 - 7.6 x10 3/uL) 6.46 Lymph # (Auto) (1.0 - 3.8 x10 3/uL) 0.71 L Fannin # (Auto) (0.1 - 0.8 x10 3/uL) 0.59 Eos # (Auto) (0.0 - 0.2 x10 3/uL) 0.00 Baso # (Auto) (0.0 - 0.2 x10 3/uL) 0.00 Abs Immat Gran (auto) (0.00 - 0.03 x10 3/uL) 0.08 H Immature Gran % (0.0 - 2.0 %) 1.0 Nucleated RBC % (0 - 0 %) 0.0 Nucleated RBCs # (Man) (0.0 - 0.1 x10 3/uL) 0.00 Free Text Obj NotesFree Text Obj Notes:PHYSICAL EXAMINATION:General appearance: awake, no acute distressHead/Eyes: atraumatic, face is symmetricENT: moist mucosal membranesNeck: Lymphadenopathy more prominent on the right sideCardiovascular: no murmur or rub heardRespiratory: Clear to auscultation bilaterallyAbdomen/GI: active bowel sounds, soft, non-tender, no distentionExtremities: moves all, bilateral lower extremities, no edema, no cyanosisNeuro/COMPUTER GRAPHIC DESIGNER: alert, oriented X 3, no focal deficitsSkin: dry, intactPsychiatry: Mood appropriate Diagnosis, Assessment Plan Free Text DxA P NotesFree text DxA P notes:Assessment/plan:Bilateral palatine tonsillar abscessJugulodigastric lymphadenopathyOral thrushAnxietySevere hypokalemiaPoor p.o. intakeVolume depletion 01/09/2024atient is doing okVitals reviewed-acceptable Labs reviewed-acceptable, leukocytosis improved, mild hypokalemiaIV replacement requested but patient preferred p.o.on IV antibiotics ENT evaluated todayRepeat labs in a.m. 01/08/2024atient is doing okVitals reviewed-acceptable Labs reviewed-acceptable, some leukocytosison IV antibiotics dc planning pending ID clearance 01/07/2024atient is doing little betterShwolfgang still has an altered voice because of the swelling on her neck and in throat, seems to be somewhat forgetfull and confused about what is happening around her says anxiety is under controlpsych eval requested She feels some difficulty in swallowing but able to take in some liquidsVitals reviewed acceptableLabs reviewed,WBC better, still hypokalemiccontinue IV steroidscontinue PPIENT and infectious disease on boardContinue Ativan as neededNot ready for discharge home yet 01/06/2024atitorrey is doing little betterAdriana still has an altered voice because of the swelling on her neck and in throatShe feels some difficulty in swallowing but able to take in some liquidsVitals reviewed acceptableLabs reviewed, worsening leukocytosis, still hypokalemicDC Medrol DosepakStart IV steroidsStart PPIENT and infectious disease on boardContinue Ativan as neededNot ready for discharge home yet 01/05/2024atitorrey was given IV clindamycin and IV fluconazole in urgent careShe was also given 1 dose of IV steroidsHIV negativeCOVID-negativeInfectious disease has been consultedImaging not available for me to review at this timeAs per ER she had lymphadenopathy and tonsillar abscessENT has been consultedfull liquid/Soft dietIV fluidsReplaced potassiumRepeat labs requestedPain controlAs needed Ativan for anxietyDiscussed with nurse at bedside at 1349 RPT #:[id number] OF REPORTPRProgress [id number]:50:00G.[id number] AVAvailable for patient nnxpPWCGTAFPQIAYGI5048-49-69T78:50:02 [facility] 2024-01-09 11:22:00 [id number] mYCoJWgww3rBJG2kc+4vuDZtgaAqzsvL3p2650-99- 03T11:22:00 [facility] ([facility])Ear/Nose/Throat Progress NoteREPORT#:[id number] REPORT STATUS: SignedREPORT INITIALIZATION DATE:01/09/24 TIME: 1121 PATIENT: ESTRELLITA BANERJEE UNIT #: [id number]#: [id number] [address] [birth year] AGE: 58 SEX: F ATTEND: Beverly Kelsey AUTHOR: Jan Patel Jr MDREPT SERVICE DT/TIME: 01/09/24 1122* ALL edits or amendments must be made on the electronic/computer document * SubjectiveHPI:58-year-old female with bilateral enlarged tonsils and 1 to 2 weeks of increasing and worsening throat pain. Patient has been afflicted with upper respiratory symptoms over that time as well. She is generally able to swallow but notes significant pain and discomfort when she does so. Presently no fevers, chills, night sweats, weight loss, or fatigue. She feels significantly better following transfer to [facility] and administration of IV meds. Upon further review and further pressing of this and the discussion with the patient today it sounds as though the swelling in the back of the throat has been longer than 1 to 2 weeks at time of admission. She was stating over a month it may have been present. Objective Physical ExamHead/eyes: atraumatic, clear cornea, EOMI, normal conjunctiva/sclera, normal eyelids/periorb., normocephalic, PERRLENT: Ears: RT normal auricles, RT normal EACs, RT normal TMs middle ears, LT normal auricles, LT normal EACs, LT normal TMs middle ears Nose: normal external nose Oral cavity: tonsil erythema/exudate, tonsil hypertrophy, pharyngeal erythemaNeuro/COMPUTER GRAPHIC DESIGNER: alert, oriented X 3Skin: dry, intact Diagnosis, Assessment PlanFree text A P:58-year-old female with bilateral severe tonsillitis and hypertrophy. In the interim, I believe it is reasonable to stay on the antibiotics even though it has not seemed to pay any dividends to shrinking his bilaterally severe tonsil hypertrophy. It may be prudent to obtain biopsy of the tonsils, not by removal but rather by small sampling of the oropharyngeal portion of the tonsils. Will obtain supplies to perform tomorrow at bedside. No need to change patient's diet for procedure. at 1124 RPT #:[id number] OF REPORTPRProgress [id number]:22:00G.[id number] AVAvailable for patient utpqFICKRRNFQGHKVC6395-88-88O78:24:38 [facility] 2024-01-08 11:58:00 [id number] i2rxDelpXU5+CIOs9yVc+g prGuEPjOsVGxJ1comGij2lf6eETvywlQIQ9869-16- 02T11:58:00 [facility] ([facility])Infectious Dis. Progress NoteREPORT#:[id number] REPORT STATUS: SignedREPORT INITIALIZATION DATE:01/08/24 TIME: 1157 PATIENT: ESTRELLITA BANERJEE UNIT #: [id number]#: [id number] ROOM/BED: 5532[address]1DOB: [birth year] AGE: 58 SEX: F ATTEND: Beverly Kelsey MDAMORENO AUTHOR: Tiarra Myles MDREPT SERVICE DT/TIME: 01/08/24 1158* ALL edits or amendments must be made on the electronic/computer document * SubjectiveChief complaint:Head and neck infectionHPI:History is obtained from the records as the patient is a very poor historian anddoes not remember anythingShe was transferred from an outside hospital after she was found to have bilateral palatine tonsillar abscesses soft palate abscess and associated bilateral jugulodigastric lymphadenopathy on imaging.There was also oral candidiasisAnd no imaging is available from the outside facilityPatient denies any past medical history Objective GeneralVS/I O:Vital SignsDate Temp Pulse Resp B/P B/P Mean Pulse Ox [id number]/-/ 36.4-36.6 73-90 14-18 103-137/70-90 80.7-105.8 93-96 Last Documented: Result Date Time Pulse Ox 96 / 1135 B/P 137/90 / 1135 B/P Mean 105.8 / 1135 Temp 36.5 / 1135 Pulse 84 / 1135 Resp 18 / 1135 O2 Delivery Room air 01/07 0411 Vital Signs: Date Time Temp Pulse Resp B/P B/P Pulse O2 O2 Flow FiO2 Mean Ox Delivery Rate / 1135 36.5 84 18 137/90 105.8 96 03/ 0753 36.4 73 16 137/89 104.8 96 03/ 0411 36.5 77 14 131/87 101.8 96 Room air 03/ 0015 36.4 77 14 129/80 96.5 95 Room air 01/06 1854 36.6 84 14 125/77 93.2 93 Room air / 1542 36.6 90 16 103/70 80.7 94 PATIENT WEIGHT: Weight (lb): Weight (oz): Weight (kg): 43.500 Medications:Active Meds + DC'd Last 24 HrsMethylprednisolone (MEDROL) 4 MG AC BK PO (DC) Methylprednisolone (MEDROL) 4 MG BEDTIME PO (DC) Methylprednisolone (MEDROL) 4 MG AC BK PO (DC) Methylprednisolone (MEDROL) 4 MG BEDTIME PO (DC) Methylprednisolone (MEDROL) 4 MG PC VERÓNICA PO (DC) Methylprednisolone (MEDROL) 4 MG AC BK PO (DC) Citalopram Hydrobromide (CITALOPRAM HYDROBROMIDE) 10 MG BEDTIME PO Methylprednisolone (MEDROL) 4 MG BEDTIME PO (DC) Potassium Chloride (KCL 10MEQ/SWFI 50ML) 50 ML Q1HR IV (DC) Methylprednisolone (MEDROL) 4 MG PC VERÓNICA DIN PO (DC) Potassium Chloride (KCL 10MEQ/SWFI 50ML) 50 ML Q1HR IV (DC) Enoxaparin Sodium (lovENOX) 30 MG Q24H SUBQ Methylprednisolone Sodium Succinate (Solu-Medrol 40 MG Vial) 40 MG Q12H IV Pantoprazole (PROTONIX) 40 MG DAILY@0600 PO Sterile Water (WATER FOR INJECTION) 1 ML ASDIR PRN IV Acetaminophen (TYLENOL) 650 MG Q4H PRN PRN PO Dextrose/Sodium Chloride (Dextrose 5% / 0.9% NaCl) 1,000 ML .[id number] IV Lorazepam (ATIVAN) 0.5 MG Q8H PRN PRN PO Fluconazole/Sodium Chloride (FLUCONAZOLE 400MG/NS 200ML) 200 ML Q24H IV Metronidazole/Sodium Chloride (metroNIDAZOLE 500MG/NS 100ML) 100 ML Q12H IV Ceftriaxone Sodium (ROCEPHIN) 2,000 MG Q24H IV Sodium Chloride (SODIUM CHLORIDE) 20 ML Physical ExamHead/Eyes: atraumatic, clear cornea, EOMI, normal conjunctiva/sclera, normal eyelids/periorb, normocephalic, PERRLENT: thrush, tonsillar swellingCardiovascular: regular rate rhythmRespiratory: clear to auscultation, no distressAbdomen: non-tender, soft, no distention, no guarding, no mass/organomegaly, no reboundExtremities: moves all, normal capillary refill, normal sensory, no edemaMusculoskeletal: full range of motion, normal inspectionNeuro/COMPUTER GRAPHIC DESIGNER: alertSkin: dry, intactLymphatics: axilla normal, inguinal normal, neck normal, no lymphadenopathyPsychiatry: abnl judgment/insight, anxious, depressed, unable to evaluate ResultsFindings/Data:Laboratory Tests 01/07 06 Chemistry Sodium (134 - 147 mEq/L) 137 Potassium (3.4 - 5.0 mEq/L) 3.6 Chloride (100 - 108 mEq/L) 106 Carbon Dioxide (21 - 33 mEq/l) 20 L Anion Gap (0 - 20) 14 BUN (7 - 25 mg/dL) 7 Creatinine (0.6 - 1.3 mg/dL) 0.5 L Glomerular Filtr Rate (90 - 95) 108.0 H Glucose (77 - 141 mg/dL) 119 Calcium (8.0 - 10.5 mg/dL) 8.0 Laboratory Tests 01/07 0613 Hematology WBC (4.5 - 11.0 x10 3/uL) 12.8 H RBC (3.54 - 5.02 x10 6/uL) 3.68 Hgb (11.0 - 15.0 g/dL) 12.2 Hct (33.0 - 45.0 %) 35.2 MCV (81.0 - 99.0 fL) 95.7 MCH (27.0 - 33.0 pg) 33.2 H MCHC (33.0 - 37.0 g/dL) 34.7 RDW (11.5 - 14.5 %) 14.1 Plt Count (150 - 400 x10 3/uL) 289 MPV (7.0 - 9.0 fL) 10.1 H Neut % (Auto) (56.0 - 77.0 %) 84.4 H Lymph % (Auto) (14.0 - 32.0 %) 8.4 L Fannin % (Auto) (4.8 - 9.0 %) 5.5 Eos % (Auto) (0.3 - 3.7 %) 0.0 L Baso % (Auto) (0.0 - 2.0 %) 0.1 Neut # (Auto) (2.0 - 7.6 x10 3/uL) 10.80 H Lymph # (Auto) (1.0 - 3.8 x10 3/uL) 1.07 Fannin # (Auto) (0.1 - 0.8 x10 3/uL) 0.70 Eos # (Auto) (0.0 - 0.2 x10 3/uL) 0.00 Baso # (Auto) (0.0 - 0.2 x10 3/uL) 0.01 Abs Immat Gran (auto) (0.00 - 0.03 x10 3/uL) 0.20 H Immature Gran % (0.0 - 2.0 %) 1.6 Nucleated RBC % (0 - 0 %) 0.0 Nucleated RBCs # (Man) (0.0 - 0.1 x10 3/uL) 0.00 Diagnosis, Assessment PlanFree Text A P:1-peritonsillar abscess and palatal abscess 2-oral thrush 3-leukopenia 4-psychiatric disorder of unknown type recommendationsGiven penicillin allergy, start Rocephin and FlagylStart Diflucan for thrushScreen for HIV and hepatitis given leukopeniaENT evaluationRepeat CT scan of the neckConsider psych eval for abnormal affectFurther recommendations to follow 01/06/24:no fever still pain in neckceftriaoxne and flagylcont fluconazole ENT evaluationRepeat CT scan of the neck 01/07/24:Ct with possible phlegmonouschanges with no discrete organized collection.Enlarged bilateral level 2 and 3 lymphadenopathy associated withsuppurative changes. There is extra chela extension of the purulentmaterial into the subcutaneous tissues and skin of the right side atthe level of the hyoid bone.cont ceftriaxone /Flagylcont diflucan follow Am labs. 01/08/24:Patient with peritonsillar abscess.Significant lymphadenopathy.Right-sided submandibular chela involvement.May benefit from biopsy.Continue antibiotic with ceftriaxone and Flagyl also on Diflucan for thrush.Patient has PCN allergies.P.o. antibiotic at discharge with clindamycin.Follow a.m. labs at 0024 RPT #:[id number] OF REPORTPRProgress [id number]:58:00G.[id number] AVAvailable for patient [id number]:24:58 [facility] 2024-01-08 10:14:00 [id number] [id number]/msh5636-30- 02T10:14:00 [facility] ([facility])Hospitalist Progress NoteREPORT#:[id number] REPORT STATUS: SignedREPORT INITIALIZATION DATE:01/08/24 TIME: 1014 PATIENT: ESTRELLITA BANERJEE UNIT #: [id number]#: [id number] [address] [birth year] AGE: 58 SEX: F ATTEND: Beverly Kelsey MDADM AUTHOR: Beverly Kelsey MDREPT SERVICE DT/TIME: 01/08/24 1014* ALL edits or amendments must be made on the electronic/computer document * SubjectiveChief complaint:follow up of Swollen neck Review of SystemsAll systems rev neg: except as noted Objective GeneralVS/I O:Vital Signs: Date Time Temp Pulse Resp B/P B/P Pulse O2 O2 Flow FiO2 Mean Ox Delivery Rate 01/07 1902 97.7 71 14 137/87 103.7 96 Room air 01/07 1648 97.9 74 16 144/97 112.7 97 / 1135 97.7 84 18 137/90 105.8 96 / 0753 97.5 73 16 137/89 104.8 96 / 0411 97.7 77 14 131/87 101.8 96 Room air 03/ 0015 97.5 77 14 129/80 96.5 95 Room air PATIENT WEIGHT: Weight (lb): Weight (oz): Weight (kg): 43.500 Medications:Active Meds + DC'd Last 24 HrsMethylprednisolone (MEDROL) 4 MG AC BK PO (DC) Methylprednisolone (MEDROL) 4 MG BEDTIME PO (DC) Methylprednisolone (MEDROL) 4 MG AC BK PO (DC) Methylprednisolone (MEDROL) 4 MG BEDTIME PO (DC) Methylprednisolone (MEDROL) 4 MG PC VERÓNICA PO (DC) Methylprednisolone (MEDROL) 4 MG AC BK PO (DC) Citalopram Hydrobromide (CITALOPRAM HYDROBROMIDE) 10 MG BEDTIME PO Methylprednisolone (MEDROL) 4 MG BEDTIME PO (DC) Potassium Chloride (KCL 10MEQ/SWFI 50ML) 50 ML Q1HR IV (DC) Methylprednisolone (MEDROL) 4 MG PC VERÓNICA DIN PO (DC) Potassium Chloride (KCL 10MEQ/SWFI 50ML) 50 ML Q1HR IV (DC) Enoxaparin Sodium (lovENOX) 30 MG Q24H SUBQ Methylprednisolone Sodium Succinate (Solu-Medrol 40 MG Vial) 40 MG Q12H IV Pantoprazole (PROTONIX) 40 MG DAILY@0600 PO Sterile Water (WATER FOR INJECTION) 1 ML ASDIR PRN IV Acetaminophen (TYLENOL) 650 MG Q4H PRN PRN PO Dextrose/Sodium Chloride (Dextrose 5% / 0.9% NaCl) 1,000 ML .[id number] IV Lorazepam (ATIVAN) 0.5 MG Q8H PRN PRN PO Fluconazole/Sodium Chloride (FLUCONAZOLE 400MG/NS 200ML) 200 ML Q24H IV Metronidazole/Sodium Chloride (metroNIDAZOLE 500MG/NS 100ML) 100 ML Q12H IV Ceftriaxone Sodium (ROCEPHIN) 2,000 MG Q24H IV Sodium Chloride (SODIUM CHLORIDE) 20 ML ResultsFindings/Data:Laboratory Tests 01/07 613 Chemistry Sodium (134 - 147 mEq/L) 137 Potassium (3.4 - 5.0 mEq/L) 3.6 Chloride (100 - 108 mEq/L) 106 Carbon Dioxide (21 - 33 mEq/l) 20 L Anion Gap (0 - 20) 14 BUN (7 - 25 mg/dL) 7 Creatinine (0.6 - 1.3 mg/dL) 0.5 L Glomerular Filtr Rate (90 - 95) 108.0 H Glucose (77 - 141 mg/dL) 119 Calcium (8.0 - 10.5 mg/dL) 8.0 Laboratory Tests 01/07 06 Hematology WBC (4.5 - 11.0 x10 3/uL) 12.8 H RBC (3.54 - 5.02 x10 6/uL) 3.68 Hgb (11.0 - 15.0 g/dL) 12.2 Hct (33.0 - 45.0 %) 35.2 MCV (81.0 - 99.0 fL) 95.7 MCH (27.0 - 33.0 pg) 33.2 H MCHC (33.0 - 37.0 g/dL) 34.7 RDW (11.5 - 14.5 %) 14.1 Plt Count (150 - 400 x10 3/uL) 289 MPV (7.0 - 9.0 fL) 10.1 H Neut % (Auto) (56.0 - 77.0 %) 84.4 H Lymph % (Auto) (14.0 - 32.0 %) 8.4 L Fannin % (Auto) (4.8 - 9.0 %) 5.5 Eos % (Auto) (0.3 - 3.7 %) 0.0 L Baso % (Auto) (0.0 - 2.0 %) 0.1 Neut # (Auto) (2.0 - 7.6 x10 3/uL) 10.80 H Lymph # (Auto) (1.0 - 3.8 x10 3/uL) 1.07 Fannin # (Auto) (0.1 - 0.8 x10 3/uL) 0.70 Eos # (Auto) (0.0 - 0.2 x10 3/uL) 0.00 Baso # (Auto) (0.0 - 0.2 x10 3/uL) 0.01 Abs Immat Gran (auto) (0.00 - 0.03 x10 3/uL) 0.20 H Immature Gran % (0.0 - 2.0 %) 1.6 Nucleated RBC % (0 - 0 %) 0.0 Nucleated RBCs # (Man) (0.0 - 0.1 x10 3/uL) 0.00 Free Text Obj NotesFree Text Obj Notes:PHYSICAL EXAMINATION:General appearance: awake, no acute distressHead/Eyes: atraumatic, face is symmetricENT: moist mucosal membranesNeck: supple, swollen more on the right sideCardiovascular: no murmur or rub heardRespiratory: Clear to auscultation bilaterallyAbdomen/GI: active bowel sounds, soft, non-tender, no distentionExtremities: moves all, bilateral lower extremities, no edema, no cyanosisNeuro/COMPUTER GRAPHIC DESIGNER: alert, oriented X 3, no focal deficitsSkin: dry, intactPsychiatry: Mood appropriate Diagnosis, Assessment Plan Free Text DxA P NotesFree text DxA P notes:Assessment/plan:Bilateral palatine tonsillar abscessJugulodigastric lymphadenopathyOral thrushAnxietySevere hypokalemiaPoor p.o. intakeVolume depletion 01/08/2024atient is doing okVitals reviewed-acceptable Labs reviewed-acceptable, some leukocytosison IV antibiotics dc planning pending ID clearance 01/07/2024atient is doing little betterShe still has an altered voice because of the swelling on her neck and in throat, seems to be somewhat forgetfull and confused about what is happening around her says anxiety is under controlpsych eval requested She feels some difficulty in swallowing but able to take in some liquidsVitals reviewed acceptableLabs reviewed,WBC better, still hypokalemiccontinue IV steroidscontinue PPIENT and infectious disease on boardContinue Ativan as neededNot ready for discharge home yet 4Patient is doing little betterShe still has an altered voice because of the swelling on her neck and in throatShe feels some difficulty in swallowing but able to take in some liquidsVitals reviewed acceptableLabs reviewed, worsening leukocytosis, still hypokalemicDC Medrol DosepakStart IV steroidsStart PPIENT and infectious disease on boardContinue Ativan as neededNot ready for discharge home yet 01/05/2024atient was given IV clindamycin and IV fluconazole in urgent careShe was also given 1 dose of IV steroidsHIV negativeCOVID-negativeInfectious disease has been consultedImaging not available for me to review at this timeAs per ER she had lymphadenopathy and tonsillar abscessENT has been consultedfull liquid/Soft dietIV fluidsReplaced potassiumRepeat labs requestedPain controlAs needed Ativan for anxietyDiscussed with nurse at bedside at 1934 RPT #:[id number] OF REPORTPRProgress [id number]:14:00G.[id number] AVAvailable for patient [id number]:35:02 [facility] 2024-01-07 23:11:00 [id number] [id number]+[id number]- 01T23:11:00 [facility] ([facility])Infectious Dis. Progress NoteREPORT#:[id number] REPORT STATUS: SignedREPORT INITIALIZATION DATE:01/07/24 TIME: 2310 PATIENT: ESTRELLITA BANERJEE UNIT #: [id number]#: [id number] [address] [birth year] AGE: 58 SEX: F ATTEND: Beverly Kelsey MDA AUTHOR: Tiarra Myles MDREPT SERVICE DT/TIME: 01/07/24 5471* ALL edits or amendments must be made on the electronic/computer document * SubjectiveChief complaint:Head and neck infectionHPI:History is obtained from the records as the patient is a very poor historian anddoes not remember anythingShe was transferred from an outside hospital after she was found to have bilateral palatine tonsillar abscesses soft palate abscess and associated bilateral jugulodigastric lymphadenopathy on imaging.There was also oral candidiasisAnd no imaging is available from the outside facilityPatient denies any past medical history Objective GeneralVS/I O:Vital SignsDate Temp Pulse Resp B/P B/P Mean Pulse Ox [id number]/-01/06 36.3-36.6 81-102 14-16 103-125/70-83 80.7-97.0 93-98 Last Documented: Result Date Time Pulse Ox 93 01/06 1854 B/P 125/77 01/06 1854 B/P Mean 93.2 01/06 1854 O2 Delivery Room air 01/06 1854 Temp 36.6 01/06 1854 Pulse 84 / 1854 Resp 14 01/06 1854 Vital Signs: Date Time Temp Pulse Resp B/P B/P Pulse O2 O2 Flow FiO2 Mean Ox Delivery Rate 01/06 1854 36.6 84 14 125/77 93.2 93 Room air 01/06 1542 36.6 90 16 103/70 80.7 94 01/06 1108 36.5 84 15 121/80 93.4 98 / 0719 36.3 82 15 115/74 87.5 97 01/06 0355 36.5 102 15 121/80 93.6 97 Room air 2343 36.4 81 15 125/83 97.0 95 Room air 24 hour I O ending at 0700: 01/06 0700 1900 Intake Total 150 Output Total Balance 150 Intake, Oral 150 Number Voids 2 PATIENT WEIGHT: Weight (lb): Weight (oz): Weight (kg): 43.500 Medications:Active Meds + DC'd Last 24 HrsMethylprednisolone (MEDROL) 4 MG AC BK PO (DC) Methylprednisolone (MEDROL) 4 MG BEDTIME PO (DC) Methylprednisolone (MEDROL) 4 MG AC BK PO (DC) Methylprednisolone (MEDROL) 4 MG BEDTIME PO (DC) Methylprednisolone (MEDROL) 4 MG PC VERÓNICA PO (DC) Methylprednisolone (MEDROL) 4 MG AC BK PO (DC) Citalopram Hydrobromide (CITALOPRAM HYDROBROMIDE) 10 MG BEDTIME PO Methylprednisolone (MEDROL) 4 MG BEDTIME PO (DC) Potassium Chloride (KCL 10MEQ/SWFI 50ML) 50 ML Q1HR IV Methylprednisolone (MEDROL) 4 MG PC VERÓNICA DIN PO (DC) Potassium Chloride (KCL 10MEQ/SWFI 50ML) 50 ML Q1HR IV (DC) Methylprednisolone (MEDROL) 4 MG AC BK PO (DC) Enoxaparin Sodium (lovENOX) 30 MG Q24H SUBQ Methylprednisolone Sodium Succinate (Solu-Medrol 40 MG Vial) 40 MG Q12H IV Pantoprazole (PROTONIX) 40 MG DAILY@0600 PO Sterile Water (WATER FOR INJECTION) 1 ML ASDIR PRN IV Acetaminophen (TYLENOL) 650 MG Q4H PRN PRN PO Dextrose/Sodium Chloride (Dextrose 5% / 0.9% NaCl) 1,000 ML .[id number] IV Lorazepam (ATIVAN) 0.5 MG Q8H PRN PRN PO Fluconazole/Sodium Chloride (FLUCONAZOLE 400MG/NS 200ML) 200 ML Q24H IV Metronidazole/Sodium Chloride (metroNIDAZOLE 500MG/NS 100ML) 100 ML Q12H IV Ceftriaxone Sodium (ROCEPHIN) 2,000 MG Q24H IV Sodium Chloride (SODIUM CHLORIDE) 20 ML Physical ExamHead/Eyes: atraumatic, clear cornea, EOMI, normal conjunctiva/sclera, normal eyelids/periorb, normocephalic, PERRLENT: thrush, tonsillar swellingCardiovascular: regular rate rhythmRespiratory: clear to auscultation, no distressAbdomen: non-tender, soft, no distention, no guarding, no mass/organomegaly, no reboundExtremities: moves all, normal capillary refill, normal sensory, no edemaMusculoskeletal: full range of motion, normal inspectionNeuro/COMPUTER GRAPHIC DESIGNER: alertSkin: dry, intactLymphatics: axilla normal, inguinal normal, neck normal, no lymphadenopathyPsychiatry: abnl judgment/insight, anxious, depressed, unable to evaluate ResultsFindings/Data:Laboratory Tests 01/06 0647 Chemistry Sodium (134 - 147 mEq/L) 137 Potassium (3.4 - 5.0 mEq/L) 3.1 L Chloride (100 - 108 mEq/L) 105 Carbon Dioxide (21 - 33 mEq/l) 22 Anion Gap (0 - 20) 13 BUN (7 - 25 mg/dL) < 5 L Creatinine (0.6 - 1.3 mg/dL) 0.4 L Glomerular Filtr Rate (90 - 95) 113.9 H Glucose (77 - 141 mg/dL) 157 H Calcium (8.0 - 10.5 mg/dL) 8.0 Laboratory Tests 01/06 0647 Hematology WBC (4.5 - 11.0 x10 3/uL) 9.5 RBC (3.54 - 5.02 x10 6/uL) 3.42 L Hgb (11.0 - 15.0 g/dL) 11.3 Hct (33.0 - 45.0 %) 32.8 L MCV (81.0 - 99.0 fL) 95.9 MCH (27.0 - 33.0 pg) 33.0 MCHC (33.0 - 37.0 g/dL) 34.5 RDW (11.5 - 14.5 %) 14.0 Plt Count (150 - 400 x10 3/uL) 263 MPV (7.0 - 9.0 fL) 10.4 H Neut % (Auto) (56.0 - 77.0 %) 87.1 H Lymph % (Auto) (14.0 - 32.0 %) 8.3 L Fannin % (Auto) (4.8 - 9.0 %) 3.3 L Eos % (Auto) (0.3 - 3.7 %) 0.0 L Baso % (Auto) (0.0 - 2.0 %) 0.0 Neut # (Auto) (2.0 - 7.6 x10 3/uL) 8.29 H Lymph # (Auto) (1.0 - 3.8 x10 3/uL) 0.79 L Fannin # (Auto) (0.1 - 0.8 x10 3/uL) 0.31 Eos # (Auto) (0.0 - 0.2 x10 3/uL) 0.00 Baso # (Auto) (0.0 - 0.2 x10 3/uL) 0.00 Abs Immat Gran (auto) (0.00 - 0.03 x10 3/uL) 0.12 H Immature Gran % (0.0 - 2.0 %) 1.3 Nucleated RBC % (0 - 0 %) 0.0 Nucleated RBCs # (Man) (0.0 - 0.1 x10 3/uL) 0.00 Diagnosis, Assessment PlanFree Text A P:1-peritonsillar abscess and palatal abscess 2-oral thrush 3-leukopenia 4-psychiatric disorder of unknown type recommendationsGiven penicillin allergy, start Rocephin and FlagylStart Diflucan for thrushScreen for HIV and hepatitis given leukopeniaENT evaluationRepeat CT scan of the neckConsider psych eval for abnormal affectFurther recommendations to follow 01/06/24:no fever still pain in neckceftriaoxne and flagylcont fluconazole ENT evaluationRepeat CT scan of the neck 01/07/24:Ct with possible phlegmonouschanges with no discrete organized collection.Enlarged bilateral level 2 and 3 lymphadenopathy associated withsuppurative changes. There is extra chela extension of the purulentmaterial into the subcutaneous tissues and skin of the right side atthe level of the hyoid bone.cont ceftriaxone /Flagylcont diflucan follow Am labs. at 2314 RPT #:[id number] OF REPORTPRProgress [id number]:11:00G.[id number] AVAvailable for patient [id number]:14:59 [facility] 2024-01-07 08:32:00 [id number] Z+[id number]+St4008-10- 01T08:32:00 [facility] ([facility])Hospitalist Progress NoteREPORT#:[id number] REPORT STATUS: SignedREPORT INITIALIZATION DATE:01/07/24 TIME: 831 PATIENT: ESTRELLITA BANERJEE UNIT #: [id number]#: [id number] ROOM/BED: 55[address]DOB: [birth year] AGE: 58 SEX: F ATTEND: Beverly Kelsey MDADM AUTHOR: Beverly Kelsey MDREPT SERVICE DT/TIME: 01/07/24 08* ALL edits or amendments must be made on the electronic/computer document * SubjectiveChief complaint:Swollen neck Review of SystemsConstitutional:Reports: generalized weakness. All systems rev neg: except as noted Objective GeneralVS/I O:Vital Signs: Date Time Temp Pulse Resp B/P B/P Pulse O2 O2 Flow FiO2 Mean Ox Delivery Rate 01/06 1108 97.7 84 15 121/80 93.4 98 01/06 0719 97.3 82 15 115/74 87.5 97 01/06 0355 97.7 102 15 121/80 93.6 97 Room air 2343 97.5 81 15 125/83 97.0 95 Room air 1937 97.7 82 15 129/84 98.8 96 Room air 1546 98.1 84 15 132/84 100.2 97 24 hour I O ending at 0700: 01/06 0700 1900 Intake Total 150 Output Total Balance 150 Intake, Oral 150 Number Voids 2 PATIENT WEIGHT: Weight (lb): Weight (oz): Weight (kg): 43.500 Medications:Active Meds + DC'd Last 24 HrsMethylprednisolone (MEDROL) 4 MG AC BK PO (DC) Methylprednisolone (MEDROL) 4 MG BEDTIME PO (DC) Methylprednisolone (MEDROL) 4 MG AC BK PO (DC) Methylprednisolone (MEDROL) 4 MG BEDTIME PO (DC) Methylprednisolone (MEDROL) 4 MG PC VERÓNICA PO (DC) Methylprednisolone (MEDROL) 4 MG AC BK PO (DC) Methylprednisolone (MEDROL) 4 MG BEDTIME PO (DC) Methylprednisolone (MEDROL) 4 MG PC VERÓNICA DIN PO (DC) Potassium Chloride (KCL 10MEQ/SWFI 50ML) 50 ML Q1HR IV Methylprednisolone (MEDROL) 4 MG AC BK PO (DC) Methylprednisolone (MEDROL) 8 MG BEDTIME PO (DC) Enoxaparin Sodium (lovENOX) 30 MG Q24H SUBQ Methylprednisolone Sodium Succinate (Solu-Medrol 40 MG Vial) 40 MG Q12H IV Pantoprazole (PROTONIX) 40 MG DAILY@0600 PO Sterile Water (WATER FOR INJECTION) 1 ML ASDIR PRN IV Enoxaparin Sodium (lovENOX) 40 MG Q24H SUBQ (DC) Acetaminophen (TYLENOL) 650 MG Q4H PRN PRN PO Dextrose/Sodium Chloride (Dextrose 5% / 0.9% NaCl) 1,000 ML .[id number] IV Lorazepam (ATIVAN) 0.5 MG Q8H PRN PRN PO Fluconazole/Sodium Chloride (FLUCONAZOLE 400MG/NS 200ML) 200 ML Q24H IV Metronidazole/Sodium Chloride (metroNIDAZOLE 500MG/NS 100ML) 100 ML Q12H IV Ceftriaxone Sodium (ROCEPHIN) 2,000 MG Q24H IV Sodium Chloride (SODIUM CHLORIDE) 20 ML Dietitian nutrition assessmentThe data set between the solid lines has been imported from the dietitian's assessment. BMI Calculated: 16.5Nutrition related diagnosis: Nutrition diagnosis details: Nutrition problem: Severe malnutritionNutrition etiology: Social circumstancesNutrition signs and symptoms: severe muscle and fat lossNutrition prescription: 1. Continue full liquid diet as tolerated. 2. Recommend Ensure Plus TID and snacks TID to supplement meals.Dietitian name: Isamar Álvarez MS, RD, LDAssessment completed: 01/06/24 ResultsFindings/Data:Laboratory Tests 01/06 0647 Chemistry Sodium (134 - 147 mEq/L) 137 Potassium (3.4 - 5.0 mEq/L) 3.1 L Chloride (100 - 108 mEq/L) 105 Carbon Dioxide (21 - 33 mEq/l) 22 Anion Gap (0 - 20) 13 BUN (7 - 25 mg/dL) < 5 L Creatinine (0.6 - 1.3 mg/dL) 0.4 L Glomerular Filtr Rate (90 - 95) 113.9 H Glucose (77 - 141 mg/dL) 157 H Calcium (8.0 - 10.5 mg/dL) 8.0 Laboratory Tests 01/06 0647 Hematology WBC (4.5 - 11.0 x10 3/uL) 9.5 RBC (3.54 - 5.02 x10 6/uL) 3.42 L Hgb (11.0 - 15.0 g/dL) 11.3 Hct (33.0 - 45.0 %) 32.8 L MCV (81.0 - 99.0 fL) 95.9 MCH (27.0 - 33.0 pg) 33.0 MCHC (33.0 - 37.0 g/dL) 34.5 RDW (11.5 - 14.5 %) 14.0 Plt Count (150 - 400 x10 3/uL) 263 MPV (7.0 - 9.0 fL) 10.4 H Neut % (Auto) (56.0 - 77.0 %) 87.1 H Lymph % (Auto) (14.0 - 32.0 %) 8.3 L Fannin % (Auto) (4.8 - 9.0 %) 3.3 L Eos % (Auto) (0.3 - 3.7 %) 0.0 L Baso % (Auto) (0.0 - 2.0 %) 0.0 Neut # (Auto) (2.0 - 7.6 x10 3/uL) 8.29 H Lymph # (Auto) (1.0 - 3.8 x10 3/uL) 0.79 L Fannin # (Auto) (0.1 - 0.8 x10 3/uL) 0.31 Eos # (Auto) (0.0 - 0.2 x10 3/uL) 0.00 Baso # (Auto) (0.0 - 0.2 x10 3/uL) 0.00 Abs Immat Gran (auto) (0.00 - 0.03 x10 3/uL) 0.12 H Immature Gran % (0.0 - 2.0 %) 1.3 Nucleated RBC % (0 - 0 %) 0.0 Nucleated RBCs # (Man) (0.0 - 0.1 x10 3/uL) 0.00 Free Text Obj NotesFree Text Obj Notes:PHYSICAL EXAMINATION:General appearance: awake, no acute distressHead/Eyes: atraumatic, face is symmetricENT: moist mucosal membranesNeck: supple, swollen more on the right sideCardiovascular: no murmur or rub heardRespiratory: Clear to auscultation bilaterallyAbdomen/GI: active bowel sounds, soft, non-tender, no distentionExtremities: moves all, bilateral lower extremities, no edema, no cyanosisNeuro/COMPUTER GRAPHIC DESIGNER: alert, oriented X 3, no focal deficitsSkin: dry, intactPsychiatry: Mood appropriate Diagnosis, Assessment Plan Free Text DxA P NotesFree text DxA P notes:Assessment/plan:Bilateral palatine tonsillar abscessJugulodigastric lymphadenopathyOral thrushAnxietySevere hypokalemiaPoor p.o. intakeVolume depletion 01/07/2024atient is doing little betterShe still has an altered voice because of the swelling on her neck and in throat, seems to be somewhat forgetfull and confused about what is happening around her says anxiety is under controlpsych eval requested She feels some difficulty in swallowing but able to take in some liquidsVitals reviewed acceptableLabs reviewed,WBC better, still hypokalemiccontinue IV steroidscontinue PPIENT and infectious disease on boardContinue Ativan as neededNot ready for discharge home yet 01/06/2024atient is doing little betterShe still has an altered voice because of the swelling on her neck and in throatShe feels some difficulty in swallowing but able to take in some liquidsVitals reviewed acceptableLabs reviewed, worsening leukocytosis, still hypokalemicDC Medrol DosepakStart IV steroidsStart PPIENT and infectious disease on boardContinue Ativan as neededNot ready for discharge home yet 01/05/2024atient was given IV clindamycin and IV fluconazole in urgent careShe was also given 1 dose of IV steroidsHIV negativeCOVID-negativeInfectious disease has been consultedImaging not available for me to review at this timeAs per ER she had lymphadenopathy and tonsillar abscessENT has been consultedfull liquid/Soft dietIV fluidsReplaced potassiumRepeat labs requestedPain controlAs needed [facility] for anxietyDiscussed with nurse at bedside at 1210 RPT #:[id number] OF REPORTPRProgress [id number] AVAvailable for patient [id number] [facility] [facility] 2024-01-06 17:19:00 [id number] uzhqyZwyrDVdvC1Ig6bAIiDyXm5/Iu84PG1765-93- 29T17:19:00 [facility] ([facility])Ear/Nose/Throat Progress NoteREPORT#:[id number] REPORT STATUS: SignedREPORT INITIALIZATION DATE:01/06/24 TIME: 1718 PATIENT: ESTRELLITA BANERJEE UNIT #: [id number]#: [id number] [address] [birth year] AGE: 58 SEX: F ATTEND: Beverly Kelsey AUTHOR: Jan Patel Jr MDREPT SERVICE DT/TIME: 01/06/241718* ALL edits or amendments must be made on the electronic/computer document * SubjectiveHPI:58-year-old female with bilateral enlarged tonsils and 1 to 2 weeks of increasing and worsening throat pain. Patient has been afflicted with upper respiratory symptoms over that time as well. She is generally able to swallow but notes significant pain and discomfort when she does so. Presently no fevers, chills, night sweats, weight loss, or fatigue. She feels significantly better following transfer to [facility] and administration of IV meds Objective GeneralVS/I O:Last Documented: Result Date Time Pulse Ox 97 1546 B/P 132/84 1546 B/P Mean 100.2 1546 Temp 36.7 1546 Pulse 84 1546 Resp 15 1546 O2 Delivery Room air 01/05 0039 PATIENT WEIGHT: Weight (lb): Weight (oz): Weight (kg): 43.500 Physical ExamGeneral appearance: alert, awakeHead/eyes: atraumatic, clear cornea, EOMI, normal conjunctiva/sclera, normal eyelids/periorb., normocephalic, PERRLENT: Ears: RT normal auricles, RT normal EACs, RT normal TMs middle ears, LT normal auricles, LT normal EACs, LT normal TMs middle ears Nose: normal external nose Oral cavity: tonsil erythema/exudate, tonsil hypertrophy, pharyngeal erythemaNeck: lymphadenopathy, tendernessNeuro/COMPUTER GRAPHIC DESIGNER: alert, oriented X 3Skin: dry, intact ResultsInterpretationCT neck soft tissue with contrast independently reviewed by me demonstrating bilateral enlarged tonsils without fluid collections present. Diagnosis, Assessment PlanFree text A P:58-year-old female with bilateral severe tonsillitis and hypertrophy. On CT scan there is no drainable fluid collection present, thus the treatment will be for presumed viral versus bacterial tonsillitis with IV steroids every 8 hours x3 doses to take the swelling down. Once the patient is able to eat and drink reasonably the patient may be discharged on 2 weeks of oral antibiotics and a Medrol Dosepak. Recommend Augmentin 875 twice daily if no allergy issues. If allergy issues present, then recommend clindamycin 300 p.o. 3 times daily x 14 days. at 1721 RPT #:[id number] OF REPORTPRProgress [id number]:19:00G.[id number] AVAvailable for patient pmowDDWYNOKWGVLACT9414-94-75L55:22:07 [facility] 2024-01-06 11:08:00 [id number] Qme22WIHMbTXjb6t1Pj9Ll JUvrATlN4PWkRMd3WYXszf7BJt4uN6LK+L6222-38T11:08:00 [facility] ([facility])Infectious Dis. Progress NoteREPORT#:[id number] REPORT STATUS: SignedREPORT INITIALIZATION DATE:01/06/24 TIME: 110 PATIENT: ESTRELLITA BANERJEE UNIT #: [id number]#: [id number] ROOM/BED: 5532[address]1DOB: [birth year] AGE: 58 SEX: F ATTEND: Beverly Kelsey MDADM AUTHOR: Tiarra Myles MDREPT SERVICE DT/TIME: 01/06/24 1108* ALL edits or amendments must be made on the electronic/computer document * SubjectiveChief complaint:Head and neck infectionHPI:History is obtained from the records as the patient is a very poor historian anddoes not remember anythingShe was transferred from an outside hospital after she was found to have bilateral palatine tonsillar abscesses soft palate abscess and associated bilateral jugulodigastric lymphadenopathy on imaging.There was also oral candidiasisAnd no imaging is available from the outside facilityPatient denies any past medical history Objective GeneralVS/I O:Vital Signs Date Temp Pulse Resp B/P B/P Mean Pulse Ox FiO2 01/05- 36.2-36.7 75-96 14-15 109-121/67-80 81.2-92.9 97-99 Last Documented: Result Date Time Pulse Ox 99 1047 B/P 115/80 1047 B/P Mean 91.6 1047 Temp 36.4 1047 Pulse 77 1047 Resp 15 1047 O2 Delivery Room air 01/05 0039 Vital Signs: Date Time Temp Pulse Resp B/P B/P Pulse O2 O2 Flow FiO2 Mean Ox Delivery Rate 1047 36.4 77 15 115/80 91.6 99 0717 36.7 75 15 121/77 91.8 98 0532 36.6 96 14 109/67 81.2 98 01/05 2314 36.3 76 15 109/69 82.3 98 01/05 1917 36.2 88 14 114/75 88.3 98 01/05 1744 36.5 76 121/79 92.9 97 01/05 1744 36.5 76 121/79 92.9 97 PATIENT WEIGHT: Weight (lb): Weight (oz): Weight (kg): 43.500 Medications:Active Meds + DC'd Last 24 HrsMethylprednisolone (MEDROL) 4 MG AC BK PO (DC) Methylprednisolone (MEDROL) 4 MG BEDTIME PO (DC) Methylprednisolone (MEDROL) 4 MG AC BK PO (DC) Methylprednisolone (MEDROL) 4 MG BEDTIME PO (DC) Methylprednisolone (MEDROL) 4 MG PC VERÓNICA PO (DC) Methylprednisolone (MEDROL) 4 MG AC BK PO (DC) Methylprednisolone (MEDROL) 4 MG BEDTIME PO (DC) Methylprednisolone (MEDROL) 4 MG PC VERÓNICA DIN PO (DC) Methylprednisolone (MEDROL) 4 MG AC BK PO (DC) Methylprednisolone (MEDROL) 8 MG BEDTIME PO (DC) Methylprednisolone (MEDROL) 4 MG PC VERÓNICA DIN PO (CAN) Methylprednisolone Sodium Succinate (Solu-Medrol 40 MG Vial) 40 MG Q12H IV (UNV) Pantoprazole (PROTONIX) 40 MG DAILY@0600 PO (UNV) Sterile Water (WATER FOR INJECTION) 1 ML ASDIR PRN IV (UNV) Potassium Chloride (KCL 10MEQ/SWFI 50ML) 50 ML Q1H IV (DC) Methylprednisolone (MEDROL) 4 MG AC BK PO (DC) Methylprednisolone (MEDROL) 12 MG BEDTIME PO (DC) Methylprednisolone (MEDROL) 12 MG 1900 PO (DC) Enoxaparin Sodium (lovENOX) 40 MG Q24H SUBQ Acetaminophen (TYLENOL) 650 MG Q4H PRN PRN PO Dextrose/Sodium Chloride (Dextrose 5% / 0.9% NaCl) 1,000 ML .[id number] IV Lorazepam (ATIVAN) 0.5 MG Q8H PRN PRN PO Methylprednisolone (Medrol Dosepak) 1 EACH ASDIR PO (DC) Fluconazole/Sodium Chloride (FLUCONAZOLE 400MG/NS 200ML) 200 ML Q24H IV Metronidazole/Sodium Chloride (metroNIDAZOLE 500MG/NS 100ML) 100 ML Q12H IV Ceftriaxone Sodium (ROCEPHIN) 2,000 MG Q24H IV Sodium Chloride (SODIUM CHLORIDE) 20 MLKetorolac Tromethamine (TORADOL) 15 MG Q6H PRN PRN IV (DC) Sodium Chloride (SODIUM CHLORIDE 0.9%) 1,000 ML .Q10H IV (DC) Physical ExamHead/Eyes: atraumatic, clear cornea, EOMI, normal conjunctiva/sclera, normal eyelids/periorb, normocephalic, PERRLENT: thrush, tonsillar swellingCardiovascular: regular rate rhythmRespiratory: clear to auscultation, no distressAbdomen: non-tender, soft, no distention, no guarding, no mass/organomegaly, no reboundExtremities: moves all, normal capillary refill, normal sensory, no edemaMusculoskeletal: full range of motion, normal inspectionNeuro/COMPUTER GRAPHIC DESIGNER: alertSkin: dry, intactLymphatics: axilla normal, inguinal normal, neck normal, no lymphadenopathyPsychiatry: abnl judgment/insight, anxious, depressed, unable to evaluate ResultsFindings/Data:Laboratory Tests 629 Chemistry Sodium (134 - 147 mEq/L) 140 Potassium (3.4 - 5.0 mEq/L) 3.3 L Chloride (100 - 108 mEq/L) 106 Carbon Dioxide (21 - 33 mEq/l) 23 Anion Gap (0 - 20) 14 BUN (7 - 25 mg/dL) < 5 L Creatinine (0.6 - 1.3 mg/dL) 0.5 L Glomerular Filtr Rate (90 - 95) 108.0 H Glucose (77 - 141 mg/dL) 135 Calcium (8.0 - 10.5 mg/dL) 8.2 Laboratory Tests 0630 Hematology WBC (4.5 - 11.0 x10 3/uL) 11.5 H RBC (3.54 - 5.02 x10 6/uL) 3.27 L Hgb (11.0 - 15.0 g/dL) 10.8 L Hct (33.0 - 45.0 %) 31.5 L MCV (81.0 - 99.0 fL) 96.3 MCH (27.0 - 33.0 pg) 33.0 MCHC (33.0 - 37.0 g/dL) 34.3 RDW (11.5 - 14.5 %) 14.0 Plt Count (150 - 400 x10 3/uL) 271 MPV (7.0 - 9.0 fL) 10.4 H Neut % (Auto) (56.0 - 77.0 %) 87.4 H Lymph % (Auto) (14.0 - 32.0 %) 7.1 L Fannin % (Auto) (4.8 - 9.0 %) 4.4 L Eos % (Auto) (0.3 - 3.7 %) 0.0 L Baso % (Auto) (0.0 - 2.0 %) 0.1 Neut # (Auto) (2.0 - 7.6 x10 3/uL) 10.04 H Lymph # (Auto) (1.0 - 3.8 x10 3/uL) 0.82 L Fannin # (Auto) (0.1 - 0.8 x10 3/uL) 0.50 Eos # (Auto) (0.0 - 0.2 x10 3/uL) 0.00 Baso # (Auto) (0.0 - 0.2 x10 3/uL) 0.01 Abs Immat Gran (auto) (0.00 - 0.03 x10 3/uL) 0.12 H Immature Gran % (0.0 - 2.0 %) 1.0 Nucleated RBC % (0 - 0 %) 0.0 Nucleated RBCs # (Man) (0.0 - 0.1 x10 3/uL) 0.00 Radiology data:Recent Impressions:CAT SCAN - CT NECK W/CONTRAST 1031 Report Impression - Status: SIGNED Entered: 01/06/2024 0932 IMPRESSION: Significant swelling of the soft palate and possible phlegmonouschanges with no discrete organized collection. Prominence of the adenoids and pillar tonsils encroaching upon theairway with no discrete tonsillar or peritonsillar abscess. Swelling of the supraglottic larynx and left glossotonsillar sulcus. Enlarged bilateral level 2 and 3 lymphadenopathy associated withsuppurative changes. There is extra chela extension of the purulentmaterial into the subcutaneous tissues and skin of the right side atthe level of the hyoid bone. Pedunculated hypodense lesion in the left nasal passageway encroachingupon the nasopharynx likely an inflammatory polyp.Impression By: Ramiro Schwartz M.D. Diagnosis, Assessment PlanFree Text A P:1-peritonsillar abscess and palatal abscess 2-oral thrush 3-leukopenia 4-psychiatric disorder of unknown type recommendationsGiven penicillin allergy, start Rocephin and FlagylStart Diflucan for thrushScreen for HIV and hepatitis given leukopeniaENT evaluationRepeat CT scan of the neckConsider psych eval for abnormal affectFurther recommendations to follow 01/06/24:no fever still pain in neckceftriaoxne and flagylcont fluconazole ENT evaluationRepeat CT scan of the neck at 2311 RPT #:[id number] OF REPORTPRProgress gjfk8595-57-95H88:08:00G.[id number] AVAvailable for patient pwarAEVAPPVSNEQOVB7107-68-20P70:11:39 [facility] 2024-01-06 10:53:00 [id number] 2s1UcnHcv/N0N54eVokimv gRhnqhPmb2Dl9CteHofSaNjEgdn9CM/dbv3507-69- 29T10:53:00 [facility]Hospital[facility] Progress NoteREPORT#:[id number] REPORT STATUS: SignedREPORT INITIALIZATION DATE:01/06/24 TIME: 105 PATIENT: ESTRELLITA BANERJEE UNIT #: [id number]#: [id number] [address] [birth year] AGE: 58 SEX: F ATTEND: Beverly Kelsey MDA AUTHOR: Beverly Kelsey MDREPT SERVICE DT/TIME: 01/06/24 1053* ALL edits or amendments must be made on the electronic/computer document * SubjectiveChief complaint:Swollen neck Review of SystemsConstitutional:Reports: generalized weakness. All systems rev neg: except as noted Objective GeneralVS/I O:Vital Signs: Date Time Temp Pulse Resp B/P B/P Pulse O2 O2 Flow FiO2 Mean Ox Delivery Rate 1047 97.5 77 15 115/80 91.6 99 0717 98.1 75 15 121/77 91.8 98 0532 97.9 96 14 109/67 81.2 98 01/05 2314 97.3 76 15 109/69 82.3 98 02/28 1917 97.2 88 14 114/75 88.3 98 01/05 174 97.7 76 121/79 92.9 97 01/05 1744 97.7 76 12179 92.9 97 PATIENT WEIGHT: Weight (lb): Weight (oz): Weight (kg): 43.500 Medications:Active Meds + DC'd Last 24 HrsMethylprednisolone (MEDROL) 4 MG AC BK PO (DCr) Methylprednisolone (MEDROL) 4 MG BEDTIME PO (DCr) Methylprednisolone (MEDROL) 4 MG AC BK PO (DCr) Methylprednisolone (MEDROL) 4 MG BEDTIME PO (DCr) Methylprednisolone (MEDROL) 4 MG PC VERÓNICA PO (DCr) Methylprednisolone (MEDROL) 4 MG AC BK PO (DCr) Methylprednisolone (MEDROL) 4 MG BEDTIME PO (DCr) Methylprednisolone (MEDROL) 4 MG PC VERÓNICA DIN PO (DCr) Methylprednisolone (MEDROL) 4 MG AC BK PO (DCr) Methylprednisolone (MEDROL) 8 MG BEDTIME PO (DCr) Methylprednisolone (MEDROL) 4 MG PC VERÓNICA DIN PO (CANr) Methylprednisolone Sodium Succinate (Solu-Medrol 40 MG Vial) 40 MG Q12H IV (UNV) Pantoprazole (PROTONIX) 40 MG DAILY@0600 PO (UNVr) Sterile Water (WATER FOR INJECTION) 1 ML ASDIR PRN IV (UNV) Potassium Chloride (KCL 10MEQ/SWFI 50ML) 50 ML Q1H IV Methylprednisolone (MEDROL) 4 MG AC BK PO (DC) Methylprednisolone (MEDROL) 12 MG BEDTIME PO (DC) Methylprednisolone (MEDROL) 12 MG 1900 PO (DC) Enoxaparin Sodium (lovENOX) 40 MG Q24H SUBQ Acetaminophen (TYLENOL) 650 MG Q4H PRN PRN PO Dextrose/Sodium Chloride (Dextrose 5% / 0.9% NaCl) 1,000 ML .[id number] IV Lorazepam (ATIVAN) 0.5 MG Q8H PRN PRN PO Methylprednisolone (Medrol Dosepak) 1 EACH ASDIR PO (DC) Fluconazole/Sodium Chloride (FLUCONAZOLE 400MG/NS 200ML) 200 ML Q24H IV Metronidazole/Sodium Chloride (metroNIDAZOLE 500MG/NS 100ML) 100 ML Q12H IV Ceftriaxone Sodium (ROCEPHIN) 2,000 MG Q24H IV Sodium Chloride (SODIUM CHLORIDE) 20 MLKetorolac Tromethamine (TORADOL) 15 MG Q6H PRN PRN IV (DC) Sodium Chloride (SODIUM CHLORIDE 0.9%) 1,000 ML .Q10H IV (DC) Dietitian nutrition assessmentThe data set between the solid lines has been imported from the dietitian's assessment. BMI Calculated: 16.5Nutrition related diagnosis: Nutrition diagnosis details: Nutrition problem: Nutrition etiology: Nutrition signs and symptoms: Nutrition prescription: Dietitian name: Assessment completed: ResultsFindings/Data:Laboratory Tests 629 Chemistry Sodium (134 - 147 mEq/L) 140 Potassium (3.4 - 5.0 mEq/L) 3.3 L Chloride (100 - 108 mEq/L) 106 Carbon Dioxide (21 - 33 mEq/l) 23 Anion Gap (0 - 20) 14 BUN (7 - 25 mg/dL) < 5 L Creatinine (0.6 - 1.3 mg/dL) 0.5 L Glomerular Filtr Rate (90 - 95) 108.0 H Glucose (77 - 141 mg/dL) 135 Calcium (8.0 - 10.5 mg/dL) 8.2 Laboratory Tests 0630 Hematology WBC (4.5 - 11.0 x10 3/uL) 11.5 H RBC (3.54 - 5.02 x10 6/uL) 3.27 L Hgb (11.0 - 15.0 g/dL) 10.8 L Hct (33.0 - 45.0 %) 31.5 L MCV (81.0 - 99.0 fL) 96.3 MCH (27.0 - 33.0 pg) 33.0 MCHC (33.0 - 37.0 g/dL) 34.3 RDW (11.5 - 14.5 %) 14.0 Plt Count (150 - 400 x10 3/uL) 271 MPV (7.0 - 9.0 fL) 10.4 H Neut % (Auto) (56.0 - 77.0 %) 87.4 H Lymph % (Auto) (14.0 - 32.0 %) 7.1 L Fannin % (Auto) (4.8 - 9.0 %) 4.4 L Eos % (Auto) (0.3 - 3.7 %) 0.0 L Baso % (Auto) (0.0 - 2.0 %) 0.1 Neut # (Auto) (2.0 - 7.6 x10 3/uL) 10.04 H Lymph # (Auto) (1.0 - 3.8 x10 3/uL) 0.82 L Fannin # (Auto) (0.1 - 0.8 x10 3/uL) 0.50 Eos # (Auto) (0.0 - 0.2 x10 3/uL) 0.00 Baso # (Auto) (0.0 - 0.2 x10 3/uL) 0.01 Abs Immat Gran (auto) (0.00 - 0.03 x10 3/uL) 0.12 H Immature Gran % (0.0 - 2.0 %) 1.0 Nucleated RBC % (0 - 0 %) 0.0 Nucleated RBCs # (Man) (0.0 - 0.1 x10 3/uL) 0.00 Radiology data:Recent Impressions:CAT SCAN - CT NECK W/CONTRAST 1031 Report Impression - Status: SIGNED Entered: 01/06/2024 0932 IMPRESSION: Significant swelling of the soft palate and possible phlegmonouschanges with no discrete organized collection. Prominence of the adenoids and pillar tonsils encroaching upon theairway with no discrete tonsillar or peritonsillar abscess. Swelling of the supraglottic larynx and left glossotonsillar sulcus. Enlarged bilateral level 2 and 3 lymphadenopathy associated withsuppurative changes. There is extra chela extension of the purulentmaterial into the subcutaneous tissues and skin of the right side atthe level of the hyoid bone. Pedunculated hypodense lesion in the left nasal passageway encroachingupon the nasopharynx likely an inflammatory polyp.Impression By: Ramiro Schwartz M.D. Free Text Obj NotesFree Text Obj Notes:PHYSICAL EXAMINATION:General appearance: awake, no acute distressHead/Eyes: atraumatic, face is symmetricENT: moist mucosal membranesNeck: supple, swollen more on the right sideCardiovascular: no murmur or rub heardRespiratory: Clear to auscultation bilaterallyAbdomen/GI: active bowel sounds, soft, non-tender, no distentionExtremities: moves all, bilateral lower extremities, no edema, no cyanosisNeuro/COMPUTER GRAPHIC DESIGNER: alert, oriented X 3, no focal deficitsSkin: dry, intactPsychiatry: Mood appropriate Diagnosis, Assessment Plan Free Text DxA P NotesFree text DxA P notes:Assessment/plan:Bilateral palatine tonsillar abscessJugulodigastric lymphadenopathyOral thrushAnxietySevere hypokalemiaPoor p.o. intakeVolume depletion 4Patient is doing little betterShe still has an altered voice because of the swelling on her neck and in throatShe feels some difficulty in swallowing but able to take in some liquidsVitals reviewed acceptableLabs reviewed, worsening leukocytosis, still hypokalemicDC Medrol DosepakStart IV steroidsStart PPIENT and infectious disease on boardContinue Ativan as neededNot ready for discharge home yet 01/05/2024atient was given IV clindamycin and IV fluconazole in urgent careShe was also given 1 dose of IV steroidsHIV negativeCOVID-negativeInfectious disease has been consultedImaging not available for me to review at this timeAs per ER she had lymphadenopathy and tonsillar abscessENT has been consultedfull liquid/Soft dietIV fluidsReplaced potassiumRepeat labs requestedPain controlAs needed Ativan for anxietyDiscussed with nurse at bedside at 1057 RPT #:[id number] OF REPORTPRProgress mbar6308-38-63T79:53:00G.[id number] AVAvailable for patient iegnRIPEGOFDGUQQGY5977-18-69E61:57:37 [facility] 2024-01-05 14:42:00 [id number] p1Kv92jFC95ZGpYEVhgqPk Sa00tsSdOI4g1ed6n/oAalujMZY+XJDX3A3503-69- 28T14:42:00 [facility] ([facility])ENT Consult NoteREPORT#:[id number] REPORT STATUS: SignedREPORT INITIALIZATION DATE:01/05/24 TIME: 144 PATIENT: ESTRELLITA BANERJEE UNIT #: [id number]#: [id number] [address] AGE: 58 SEX: F ATTEND: Beverly Kelsey AUTHOR: Jan Patel Jr MDREPT SERVICE DT/TIME: 01/05/24 1442* ALL edits or amendments must be made on the electronic/computer document * See AddendumHistory of Present IllnessHPI:58-year-old female with bilateral enlarged tonsils and 1 to 2 weeks of increasing and worsening throat pain. Patient has been afflicted with upper respiratory symptoms over that time as well. She is generally able to swallow but notes significant pain and discomfort when she does so. Presently no fevers, chills, night sweats, weight loss, or fatigue. She feels significantly better following transfer to [facility] and administration of IV meds History - Adult longitudinalSmoking status for patients 13 years old or older: Current some day smokerAllergies:Coded Allergies:Penicillins (HIVES 01/05/24)codeine (HIVES 01/05/24) Review of SystemsENT:sinus problem, sore throat, throat pain, throat swelling. All systems rev neg: except as marked Diagnosis, Assessment Plan Free Text DxA P NotesFree Text DxA P Notes:58-year-old female with bilateral severe tonsillitis with abscess formation per report from head and neck imaging. I have been unable to locate the imaging to personally review, however with tonsillar abscesses generally they are self-limited and respond very well to IV antibiotics and steroids. She should be admitted for observation and when trending in the right direction may be discharged on Augmentin 875 twice daily if no allergies x 2 weeks as well as a Medrol Dosepak. If her improvement stalls out it is not unreasonable to drain fluid from the abscesses however I will need to see the imaging prior to making that distinction. Please upload images to system. at 1441 Addendum 1: 01/05/24 1448 by Jan Patel Jr, MD Physical exam is largely within normal limits with the exception of the oropharyngeal exam which demonstrates bilateral cryptic tonsils with exudates measuring 4+. The bilateral neck and level 2 has large tender palpable masses consistent with enlarged tonsils with associated lymphadenopathy. No fluctuanceis noted. The ear exam the nose exam and the general appearance are within normal limits. No cranial nerve palsies are grossly present. at 1450 RPT #:[id number] OF REPORTFNTzaqalkiebba8953-48-55F61:42:00 GKehindeTUZK91884083-1469BNVnuzmddws for patient elmgGQEQKIDZCOZRHS1296-93-39S13:45:32 [facility] 2024-01-05 11:37:00 [id number] kxDhyY5cnHWv9Ionzh23yi +w18J+SYOyUF3XXZC7PIgCAeh8eFhq2CzH6394-92- 28T11:37:00 [facility] ([facility])Infect Disease Consult NoteREPORT#:[id number] REPORT STATUS: SignedREPORT INITIALIZATION DATE:01/05/24 TIME: 1136 PATIENT: ESTRELLITA BANERJEE UNIT #: [id number]#: [id number] [facility]ED: [facility]DOB: [birth year] AGE: 58 SEX: F ATTEND: Beverly Kelsey AUTHOR: Chris Prieto MDREPT SERVICE DT/TIME: 01/05/241136* ALL edits or amendments must be made on the electronic/computer document * History of Present IllnessRequesting Clinician: Dr Becker for consult: Peritonsillar abscessChief complaint:Head and neck infectionHPI:History is obtained from the records as the patient is a very poor historian anddoes not remember anythingShe was transferred from an outside hospital after she was found to have bilateral palatine tonsillar abscesses soft palate abscess and associated bilateral jugulodigastric lymphadenopathy on imaging.There was also oral candidiasisAnd no imaging is available from the outside facilityPatient denies any past medical history History - Adult longitudinalSmoking status for patients 13 years old or older: Current some day smokerAllergies:Coded Allergies:Penicillins (HIVES 01/05/24)codeine (HIVES 01/05/24) Review of SystemsUnable to obtain due to:Patient is a very poor historian Objective Physical ExamGeneral appearance: alert, awakeHead/Eyes: atraumatic, clear cornea, EOMI, normal conjunctiva/sclera, normal eyelids/periorb, normocephalic, PERRLENT: thrush, tonsillar swellingCardiovascular: regular rate rhythmRespiratory: clear to auscultation, no distressAbdomen: non-tender, soft, no distention, no guarding, no mass/organomegaly, no reboundExtremities: moves all, normal capillary refill, normal sensory, no edemaMusculoskeletal: full range of motion, normal inspectionNeuro/COMPUTER GRAPHIC DESIGNER: alertSkin: dry, intactLymphatics: axilla normal, inguinal normal, neck normal, no lymphadenopathyPsychiatry: abnl judgment/insight, anxious, depressed, unable to evaluate ResultsFindings/Data:Laboratory Tests 01/05 01/05 01/05 0731 0144 0144 Chemistry Sodium (134 - 147 mEq/L) 136 136 Potassium (3.4 - 5.0 mEq/L) 3.8 2.6 *L Chloride (100 - 108 mEq/L) 103 100 Carbon Dioxide (21 - 33 mEq/l) 21 27 Anion Gap (0 - 20) 16 12 BUN (7 - 25 mg/dL) < 5 L < 5 L Creatinine (0.6 - 1.3 mg/dL) 0.5 L 0.4 L Glomerular Filtr Rate (90 - 95) 108.0 H 113.9 H Glucose (77 - 141 mg/dL) 114 91 Lactic Acid (0.4 - 1.9 mmol/L) 1.1 Calcium (8.0 - 10.5 mg/dL) 8.5 8.4 Laboratory Tests 01/05 01/05 0731 0052 Hematology WBC (4.5 - 11.0 x10 3/uL) 3.9 L 6.0 RBC (3.54 - 5.02 x10 6/uL) 4.02 3.33 L Hgb (11.0 - 15.0 g/dL) 13.2 11.1 Hct (33.0 - 45.0 %) 39.3 32.2 L MCV (81.0 - 99.0 fL) 97.8 96.7 MCH (27.0 - 33.0 pg) 32.8 33.3 H MCHC (33.0 - 37.0 g/dL) 33.6 34.5 RDW (11.5 - 14.5 %) 13.9 14.1 Plt Count (150 - 400 x10 3/uL) 178 244 MPV (7.0 - 9.0 fL) 10.4 H 10.3 H Neut % (Auto) (56.0 - 77.0 %) 80.8 H 59.3 Lymph % (Auto) (14.0 - 32.0 %) 15.2 23.9 Fannin % (Auto) (4.8 - 9.0 %) 2.6 L 14.6 H Eos % (Auto) (0.3 - 3.7 %) 0.3 1.0 Baso % (Auto) (0.0 - 2.0 %) 0.3 0.5 Neut # (Auto) (2.0 - 7.6 x10 3/uL) 3.14 3.57 Lymph # (Auto) (1.0 - 3.8 x10 3/uL) 0.59 L 1.44 Fannin # (Auto) (0.1 - 0.8 x10 3/uL) 0.10 0.88 H Eos # (Auto) (0.0 - 0.2 x10 3/uL) 0.01 0.06 Baso # (Auto) (0.0 - 0.2 x10 3/uL) 0.01 0.03 Abs Immat Gran (auto) (0.00 - 0.03 x10 3/uL) 0.03 0.04 H Immature Gran % (0.0 - 2.0 %) 0.8 0.7 Nucleated RBC % (0 - 0 %) 0.0 0.0 Nucleated RBCs # (Man) (0.0 - 0.1 x10 3/uL) 0.00 0.00 Diagnosis, Assessment Plan Free Text DxA P NotesFree text DxA P notes:1-peritonsillar abscess and palatal abscess 2-oral thrush 3-leukopenia 4-psychiatric disorder of unknown type recommendationsGiven penicillin allergy, start Rocephin and FlagylStart Diflucan for thrushScreen for HIV and hepatitis given leukopeniaENT evaluationRepeat CT scan of the neckConsider psych eval for abnormal affectFurther recommendations to follow at 1141 RPT #:[id number] OF REPORTQHGvpogqxsqhnc6818-12-82F63:37:00 G.[id number] for patient ahpjSSIDBMRJUFABBS1843-67-56T42:41:42 [facility] 2024-01-05 08:31:00 [id number] tvOv47VxH4moKgIfNXcsJZ 9bVj7IK6VXPH2B5JGRlbvy7E7LkNW35Ub43414-53- 28T08:31:00 [facility] ([facility]ITALClinical NoteREPORT#:[id number] REPORT STATUS: SignedREPORT INITIALIZATION DATE:01/05/24 TIME: 830 PATIENT: ESTRELLITA BANERJEE UNIT #: [id number]#: [id number] [address] AGE: 58 SEX: F ATTEND: Beverly Kelsey AUTHOR: Chris Prieto MDREPT SERVICE DT/TIME: 01/05/24 0831* ALL edits or amendments must be made on the electronic/computer document * Clinical NoteNote:CONSULT TO FOLLOW at 0831 RPT #:[id number] OF REPORTCLClinical zpph3512-98-14W42:31:00G.[id number] AVAvailable for patient jqugLYCOJVZNDTJQGP4916-91-24Y43:32:06 [facility] 2024-01-05 08:15:00 [id number] o8tAt34JUQR6b9cqeiDs3r C8jZJwa8KhG+ITuMgM/pjaD7gFSLJswQYb5506-01- 28T08:15:00 [facility] History PhysicalREPORT#:[id number] REPORT STATUS: SignedREPORT INITIALIZATION DATE:01/05/24 TIME: 814 PATIENT: ESTRELLITA BANERJEE UNIT #: [id number]#: [id number] [facility] [birth year] AGE: 58 SEX: F ATTEND: Beverly Kelsey MDADM AUTHOR: Beverly Kelsey MDREPT SERVICE DT/TIME: 01/05/24814* ALL edits or amendments must be made on the electronic/computer document * History of Present Illness HPIChief complaint:Swollen neckPCP:PCP: No Primary or Family Physician HPI:Patient is 58 years old woman with past medical history of anxiety, does not take any medication for that presented to emergency department/transferred from another facility for ENT evaluation. The patient does not know why she is here all she tells is that the people that she lives with noticed that her neck was swollen so she was taken to emergency department/urgent care where they did someevaluation and scans and afterwards transferred to this hospital. Patient cannot tell me the next of kin name, she says guy is on the chart, on reading the next of kin from chart she said that was the lady that she used to work withthen she has .As per patient she lives with the family of a friend for about a year before that she was living in a camper with a friend who and then she had to move with the family and they have noticed that she has this swelling on her neck for which they brought her to emergency department. Patient was found to have bilateral palatine tonsillar abscesses associated with bilateral jugulodigastric lymphadenopathy as per ER notes and then she was transferred here for ENT evaluation. Patient was also found to have oral thrush, she was given IV clindamycin, antifungal prior to transfer, patient was also given 1 dose of dexamethasone. Patient states she has not been eating drinking well forabout a month, she has pain on swallowing and off-and-on has cough.Hx Obtained From Patient, Prior medical records History Past Medical Surgical HxAdditional medical history:AnxietyAdditional surgical history:C-sections Family HistoryAdditional family history:She denies any diseases in family Social HistorySmoking status for patients 13 years old or older: Current some day smoker Medication/Allergy-Vaccine HxAllergies:Coded Allergies:Penicillins (HIVES 01/05/24)codeine (HIVES 01/05/24) Review of SystemsConstitutional:Reports: generalized weakness. All systems rev neg: except as noted OBJECTIVEVS/I O:Vital Signs Date Temp Pulse Resp B/P B/P Mean Pulse Ox FiO2 01/05 97.9 91-92 20 105-125/62-70 76-92 96-99 Last Documented: Result Date Time Pulse Ox 96 01/05 0345 B/P 125/70 01/05 0345 B/P Mean 92 01/05 0345 Pulse 92 01/05 0345 O2 Delivery Room air 01/05 0039 Temp 97.9 01/05 0039 Resp 20 01/05 0039 24 hour I O ending at 0700: 01/05 0700 01/04 1900 Intake Total Output Total Balance Patient 43.5 kg Weight Weight Bed scale Measurement Method Patient Weight and BMI Weight (kg): 43.500 BMI: 16.5 Medications:Active Meds + DC'd Last 24 HrsFluconazole/Sodium Chloride (FLUCONAZOLE 400MG/NS 200ML) 200 ML Q24H IV Metronidazole/Sodium Chloride (metroNIDAZOLE 500MG/NS 100ML) 100 ML Q12H IV (CKD) Ceftriaxone Sodium (ROCEPHIN) 2,000 MG Q24H IV Sodium Chloride (SODIUM CHLORIDE) 20 MLPotassium Chloride (KCL 10MEQ/SWFI 50ML) 50 ML Q1HR IV (DC) Potassium Chloride (POTASSIUM CHLORIDE 20MEQ TAB.ER) 40 MEQ ONCE ONE PO (DC) Ketorolac Tromethamine (TORADOL) 15 MG Q6H PRN PRN IV Sodium Chloride (SODIUM CHLORIDE 0.9%) 1,000 ML .Q10H IV Dexamethasone Sodium Phosphate (DECADRON) 10 MG X1ED STA IV (DC) Sodium Chloride (SODIUM CHLORIDE 0.9%) 1,000 ML X1ED STA IV (DC) ResultsFindings/Data:Laboratory Tests: 01/05 01/05 01/05 1012 0731 0144 Chemistry Sodium (134 - 147 mEq/L) 136 Potassium (3.4 - 5.0 mEq/L) 3.8 Chloride (100 - 108 mEq/L) 103 Carbon Dioxide (21 - 33 mEq/l) 21 Anion Gap (0 - 20) 16 BUN (7 - 25 mg/dL) < 5 L Creatinine (0.6 - 1.3 mg/dL) 0.5 L Glomerular Filtr Rate (90 - 95) 108.0 H Glucose (77 - 141 mg/dL) 114 Lactic Acid (0.4 - 1.9 mmol/L) 1.1 Calcium (8.0 - 10.5 mg/dL) 8.5 Hematology WBC (4.5 - 11.0 x10 3/uL) 3.9 L RBC (3.54 - 5.02 x10 6/uL) 4.02 Hgb (11.0 - 15.0 g/dL) 13.2 Hct (33.0 - 45.0 %) 39.3 MCV (81.0 - 99.0 fL) 97.8 MCH (27.0 - 33.0 pg) 32.8 MCHC (33.0 - 37.0 g/dL) 33.6 RDW (11.5 - 14.5 %) 13.9 Plt Count (150 - 400 x10 3/uL) 178 MPV (7.0 - 9.0 fL) 10.4 H Neut % (Auto) (56.0 - 77.0 %) 80.8 H Lymph % (Auto) (14.0 - 32.0 %) 15.2 Fannin % (Auto) (4.8 - 9.0 %) 2.6 L Eos % (Auto) (0.3 - 3.7 %) 0.3 Baso % (Auto) (0.0 - 2.0 %) 0.3 Neut # (Auto) (2.0 - 7.6 x10 3/uL) 3.14 Lymph # (Auto) (1.0 - 3.8 x10 3/uL) 0.59 L Fannin # (Auto) (0.1 - 0.8 x10 3/uL) 0.10 Eos # (Auto) (0.0 - 0.2 x10 3/uL) 0.01 Baso # (Auto) (0.0 - 0.2 x10 3/uL) 0.01 Abs Immat Gran (auto) (0.00 - 0.03 x10 3/uL) 0.03 Immature Gran % (0.0 - 2.0 %) 0.8 Nucleated RBC % (0 - 0 %) 0.0 Nucleated RBCs # (Man) (0.0 - 0.1 x10 3/uL) 0.00 Serology Hep Bs Antigen (NonReactive INDEX) NON REACTIVE HIV 1 2 Antibody Screen (Nonreactive) Nonreactive 01/05 01/05 0144 0052 Chemistry Sodium (134 - 147 mEq/L) 136 Potassium (3.4 - 5.0 mEq/L) 2.6 *L Chloride (100 - 108 mEq/L) 100 Carbon Dioxide (21 - 33 mEq/l) 27 Anion Gap (0 - 20) 12 BUN (7 - 25 mg/dL) < 5 L Creatinine (0.6 - 1.3 mg/dL) 0.4 L Glomerular Filtr Rate (90 - 95) 113.9 H Glucose (77 - 141 mg/dL) 91 Calcium (8.0 - 10.5 mg/dL) 8.4 Hematology WBC (4.5 - 11.0 x10 3/uL) 6.0 RBC (3.54 - 5.02 x10 6/uL) 3.33 L Hgb (11.0 - 15.0 g/dL) 11.1 Hct (33.0 - 45.0 %) 32.2 L MCV (81.0 - 99.0 fL) 96.7 MCH (27.0 - 33.0 pg) 33.3 H MCHC (33.0 - 37.0 g/dL) 34.5 RDW (11.5 - 14.5 %) 14.1 Plt Count (150 - 400 x10 3/uL) 244 MPV (7.0 - 9.0 fL) 10.3 H Neut % (Auto) (56.0 - 77.0 %) 59.3 Lymph % (Auto) (14.0 - 32.0 %) 23.9 Fannin % (Auto) (4.8 - 9.0 %) 14.6 H Eos % (Auto) (0.3 - 3.7 %) 1.0 Baso % (Auto) (0.0 - 2.0 %) 0.5 Neut # (Auto) (2.0 - 7.6 x10 3/uL) 3.57 Lymph # (Auto) (1.0 - 3.8 x10 3/uL) 1.44 Fannin # (Auto) (0.1 - 0.8 x10 3/uL) 0.88 H Eos # (Auto) (0.0 - 0.2 x10 3/uL) 0.06 Baso # (Auto) (0.0 - 0.2 x10 3/uL) 0.03 Abs Immat Gran (auto) (0.00 - 0.03 x10 3/uL) 0.04 H Immature Gran % (0.0 - 2.0 %) 0.7 Nucleated RBC % (0 - 0 %) 0.0 Nucleated RBCs # (Man) (0.0 - 0.1 x10 3/uL) 0.00 Laboratory Tests 01/05/24 0731:[Embedded Image Not Available] 01/05/24 0144:[Embedded Image Not Available] 01/05/24 0052:[Embedded Image Not Available] Free Text PE NotesFree Text PE Notes:PHYSICAL EXAMINATION:General appearance: awake, no acute distressHead/Eyes: atraumatic, face is symmetricENT: moist mucosal membranesNeck: supple, swollen more on the right sideCardiovascular: no murmur or rub heardRespiratory: Clear to auscultation bilaterallyAbdomen/GI: active bowel sounds, soft, non-tender, no distentionExtremities: moves all, bilateral lower extremities, no edema, no cyanosisNeuro/COMPUTER GRAPHIC DESIGNER: alert, oriented X 3, no focal deficitsSkin: dry, intactPsychiatry: Mood appropriate Diagnosis, Assessment PlanFree Text A P:Assessment/plan:Bilateral palatine tonsillar abscessJugulodigastric lymphadenopathyOral thrushAnxietySevere hypokalemiaPoor p.o. intakeVolume depletion Patient was given IV clindamycin and IV fluconazole in urgent careShe was also given 1 dose of IV steroidsHIV negativeCOVID-negativeInfectious disease has been consultedImaging not available for me to review at this timeAs per ER she had lymphadenopathy and tonsillar abscessENT has been consultedfull liquid/Soft dietIV fluidsReplaced potassiumRepeat labs requestedPain controlAs needed Ativan for anxietyDiscussed with nurse at bedside at 1734 RPT #:[id number] OF REPORTHPHistory and physical huprmozmfnt7310-47-42F99:15:00G.[id number] VAvailable for patient bxusTIJFGRDAAQZICZ5381-10-69Z70:34:23 [facility] 2024-01-05 01:06:00 [id number] PAAt1zRbNi049+blORwgd4 Dasi6ZIFkRqcDtaO6W4K4pCyN41c/rLfqd1157-17- 28T01:06:00 [facility] ([facility])EMERGENCY PROVIDER REPORTREPORT#:[id number] REPORT STATUS: SignedDATE:01/05/24 TIME: 0106 PATIENT: ESTRELLITA BANERJEE UNIT #: [id number]#: [id number] [address] 58 SEX: F PCP PHYS: No Primary or Family PhysicianSERVICE AUTHOR: Kathleen Kim MD * ALL edits or amendments must be made on the electronic/computer document * KYY-Njp-Nttm Illness Free Text HPI NotesFree Text HPI Ymtuz34-snwx-aav female who states no past medical history is transferred to our institution for ENT evaluation for finding of bilateral palatine tonsillar abscesses, soft palate abscess and associated bilateral jugulodigastric lymphadenopathy. Patient states began having throat discomfort about a month ago. No prior antibiotics or outpatient follow-up whatsoever. Was given clindamycin prior to transfer. Patient was also noted to have extensive oral candidiasis and was given antifungal medication. Currently speaking in full sentences and protecting airway without any drooling or respiratory distress. GeneralInitial Greet Date/Time 01/05/24 0032 PresentationChief Complaint Sore throat Review of Systems Free Text ROS NotesFree Text ROS NotesGen: Well appearing, well hydrated, cooperativeHead: Normocephalic, atraumaticEyes: EOMI, normal conjunctivaENT: MMM, airway patentLungs: CTAB no R/R/WHeart: RRR, normal pulsesAbd: S/NT/ND, normal BS, no rebound or guardingExt: FROM BUE/LE, no deformityNeuro: A O x 3, CN II-XII grossly intact. Strength and sensation grossly intact Past Medical History - AdultStated Complaint PERITONSILLAR ABSCESSAllergiesCoded Allergies:Penicillins (HIVES 01/05/24)codeine (HIVES 01/05/24) Physical Exam Vital SignsVital SignsFirst Documented: Result Date Time Pulse Ox 99 01/05 0039 B/P 105/62 01/05 0039 B/P Mean 76 01/059 O2 Delivery Room air 01/05 39 Temp 36.6 01/05 003 Pulse 91 01/05 003 Resp 20 01/05 39 Last Documented: Result Date Time Pulse Ox 99 01/05 0039 B/P 105/62 01/05 0039 B/P Mean 76 01/05 0039 O2 Delivery Room air 01/05 39 Temp 36.6 01/05 0039 Pulse 91 01/05 39 Resp 20 01/05 39 Review of Vital Signs Reviewed Re-Evaluation MDM Free Text MDM NotesFree Text MDM Aiamk99-boru-sut female was transferred to institution for admission and ENT evaluation. Initially presented to peripheral ER for her sore throat. Vital signs within limits. On physical examination noted to have extensive oral candidiasis, as well as bilateral tonsillar swelling. Lab work from transfer did not show sepsis. CAT scan revealed bilateral palatine tonsillar abscesses, soft palate abscess and associated 2. Of bilateral jugulodigastric lymphadenopathy. Patient received clindamycin and antifungal prior to transfer. Given dexamethasone at ED. The rest of the lab work unrevealing including negative HIV test, negative influenza and negative COVID tests. Patient is stable at time of admission. Called hospitalist Dr. Kelsey to notify admission but she did not respond so a text message was sent notifying the admission. ENTconsult placed. Patient protecting airway and stable at time of admission. ED CourseMedication(s) OrderedMedication(s) Ordered:Central Nervous System Agents Sig/Barbara Start time Last Medication Dose Route Stop Time Status Admin Ketorolac 15 MG Q6H PRN PRN 01/05 115 UNV Tromethamine IV 6 Electrolytic, Caloric, And Issac Sig/Barbara Start time Last Medication Dose Route Stop Time Status Admin Sodium Chloride 1,000 ML .Q10H 01/05 0115 UNV IV 0007 Sodium Chloride 1,000 ML X1ED STA 01/05 0052 AC IV 01/05 0151 Eye, Ear, Nose And Throat (Een Sig/Barbara Start time Last Medication Dose Route Stop Time Status Admin Dexamethasone Sodium 10 MG X1ED STA 01/05 0052 DC Phosphate IV 01/05 005 Patient Discharge Departure Vital Signs/ConditionVital SignsFirst Documented: Result Date Time Pulse Ox 99 01/05 0039 B/P 105/62 01/05 0039 B/P Mean 76 01/05 003 O2 Delivery Room air 01/05 39 Temp 36.6 01/05 0039 Pulse 91 01/05 0039 Resp 20 01/05 39 Last Documented: Result Date Time Pulse Ox 99 01/05 0039 B/P 105/62 01/05 0039 B/P Mean 76 01/05 0039 O2 Delivery Room air 01/05 0039 Temp 36.6 01/05 0039 Pulse 91 01/05 0039 Resp 20 01/05 003 All vital signs available at the time of this entry have been reviewed. Clinical ImpressionClinical ImpressionPrimary Impression: Abscess of palate Disposition DecisionHospitalize Hosp Physician Name Beverly Kelsey MD Request Time 010 Request Date 01/05/24 )( Accepts Hospitalization Yes )( Accepted Time 106 )( Accepted Date 01/05/24 Call Information will see patient Discharge/Care Plan Admit NoteI have spoken with the patient and/or caregivers. I have explained the patient'scondition, diagnoses and treatment plan based on the information available to meat this time. I have answered the patient's and/or caregiver's questions and addressed any concerns. The patient and/or caregivers have as good an understanding of the patient's diagnosis, condition and treatment plan as can beexpected at this point. The patient has been stabilized within the capability ofthe emergency department. The patient will be transported for further care and management or will be moved to an observation or inpatient service. I have communicated with the staff or medical practitioner taking over this patient's care. at 0113RPT #:[id number] OF REPORTHCA [facility] department lexbjl8366-81-58Y15:06:00G.VDVM66878317-83 16AVAvailable for patient yyxcQJNQIZEFJVYXZB7766-58-54I89:13:27 [facility] 2023-12-11 10:28:00 lQYvxKgpwy4flhY9BZ1p I9n44pLxn6Pz6dJ81det9f iRrYu2KtQfRFk4JFo0B1I83338-73-70F50:28:00F ormatting of this note might be different from the original.Estrellita Banerjee is a 58 year old female to ED to establish treatment for cancer. Visitor with pt reports she was seen at OSH and dx with tumor but has not established treatment at this time. Pt awake and alert. No distress noted. Resp even and unlabored. AAO X3. 71676-5Urjqfpmce department Triage xbttST0207-68-08I53:29:46[facility] Triage noteTXT1.2.840.181877.1.13.104.2.7.2.03766 9|[id number] for patient zion16659-1Ttxtjwfsy department NoteLNNARRATIVEFormatted C-CDA narrative text[address] Ya[id number] FMRVPTCGSZDQRIDC8745-11-36P02:29:461.2.840 .804900.1.72.3.15|1.2.840.648808.1.13.104. 2.7.2.727879_[id number] [facility] 2023-12-11 10:22:00 imr09XQ95XhIcmw4/1+j Oep0eZAk04zVRF7usj6j81 q1zwr4+u9KdiYv/1fKAN0U9612-00-73C54:22:00F ormatting of this note might be different from the original.This patient was seen for medical screening examination.The patient presents with complaint of a right-sided neck mass which she has had for months.There is no other complaint.The patient does not have shortness of breath, severe headache or numbness or weakness.There is no related new facial swelling or change in vision.Patient was ambulatory into the emergency department and speaks full sentences without shortness of breath or difficulty breathing.There is no emergency medical problem identified during the screening examination. Patient's vital signs do not reveal her to be febrile. She is also not tachycardic or hypotensive. Pulse oximetry is also within normal limits while on room air. 01572-0Xwwlsgtig Emergency department SledGR0885-16-19Z28:23:04Physician Emergency department NoteTXT1.2.840.809875.1.13.104.2.7.2.14266 9|[id number] for patient ggma30060-3GeunBHYCZPCRTTKUhhfxirpo C-CDA narrative textUT[address] To[id number] JBMCEFZLNRYNZQKZ6227-54-05K09:23:041.2.840 .544792.1.72.3.15|1.2.840.915120.1.13.104. 2.7.2.727879_[id number] [facility]"
[2024-01-16 12:55] LABS: Specific Gravity 1.008 (1.005-1.030); Transitional Epithelial <5 /HPF (None Seen); Urine Bacteria None Seen /HPF (<20); Urine Bilirubin NEGATIVE (Negative); Urine Blood Negative (Negative); Urine Clarity Turbid (Clear); Urine Color Yellow (Yellow); Urine Glucose NEGATIVE (Negative); Urine Mucus Slight /HPF (None Seen); Urine Protein NEGATIVE (Negative); Urine RBC <5 /HPF (None Seen); Urine Urobilinogen Normal (Normal); Urine pH 7.5 (5.0-7.0)
[2024-01-16] MEDS ORDERED: dexAMETHasone 10 MG/ML VIAL ONE (13:04)
[2024-01-16] MEDS ORDERED: NA CHLORIDE 0.9% 1,000 ML ONE ×2 (13:04→23:19)
[2024-01-16] MEDS ORDERED: ONDANSETRON 4 MG/2 ML VIAL ONE (13:04)
[2024-01-16] MEDS ORDERED: FAMOTIDINE 20 MG/2 ML VIAL IV ONE (13:04)
[2024-01-16 13:17] LABS: Absolute Eosinophils 0.1 K/uL (0-0.5); Absolute Lymphocytes (CBC) 1.1 K/uL (0.7-4.9); Absolute Monocytes 0.8 K/uL (0.1-1.3); Absolute Neutrophil 5.6 K/uL (1.8-8.0); Basophils % 0.1 % (0-1.3); Eosinophils % 1.6 % (0-4.4); Hematocrit 37.7 % (36.0-45.0); Lymphocytes % 13.8 % (15.3-44.8); MCH 33.5 pg (27.0-35.0); MCHC 34.4 g/dL (32.0-36.0); MCV 97.3 fL (80-100); MPV 9.1 fL (7.6-11.3); Monocytes % 10.9 % (3.3-12.3); Neutrophils % 73.6 % (41.7-73.7); Platelets 139 thou/uL (152-406); RBC Red Blood Cell Count 3.88 M/uL (3.86-4.86); Red Cell Distribution Width 15.2 % (12.1-15.2)
[2024-01-16 13:20] LABS: PT Prothrombin Time 11.3 SECONDS (9.5-12.5); Protime INR 1.03
[2024-01-16 13:33] LABS: Albumin 2.8 g/dL (3.4-5.0); Albumin/Globulin Ratio 0.7 (1.1-1.8); Anion Gap 12.7 mEq/L (5.0-15.0); Bilirubin Direct 0.4 mg/dL (0-0.2); Bilirubin Indirect, Calculated 0.7 mg/dL (0.2-0.8); Bilirubin Total 1.1 mg/dL (0.2-1.0); Globulin 3.9 g/dL (2.3-3.5); Magnesium 1.6 mg/dL (1.6-2.4); Potassium 2.7 mEq/L (3.5-5.1); Protein, Total 6.7 g/dL (6.4-8.2); Troponin High Sensitivity 51.6 pg/mL (<58.9)
--- NOTE | 2024-01-16 13:37 | RAD REPORT ---
EXAM DESCRIPTION: [place] Single View01/16/2024 1:17 pm CLINICAL HISTORY: cough COMPARISON: none FINDINGS: Left base is mildly hazy. The remainder of the lungs appear clear of acute infiltrate. The heart is normal size IMPRESSION: Left base is mildly hazy which may be secondary to an infiltrate
[2024-01-16] MEDS ORDERED: Levofloxacin500mg IV 500 MG/100 ML BAG IV ONE (13:38)
--- NOTE | 2024-01-16 14:45 | RAD REPORT ---
EXAM DESCRIPTION: CT - Soft Tissue Neck W/Contr - 01/16/2024 2:16 pm CLINICAL HISTORY: Neck pain/neck swelling COMPARISON: None. TECHNIQUE: Computed axial tomography of the neck was obtained. 50 cc Isovue 300 was administered in travenously. Coronal and sagittal reconstruction was performed. All CT scans are performed using dose optimization technique as appropriate and may include automated exposure control or mA/KV adjustment according to patient size. FINDINGS: 2.2 centimeter soft tissue soft palate Soft tissue left posterior nasal cavity. Right and left tonsils are prominent. Remainder of the airway unremarkable The parotid, submandibular and thyroid glands appear unremarkable. 4.2 x 2.9 centimeter lymph node deep to the sternocleidomastoid muscle mid right neck. 3.7 x 2.7 centimeter lymph node deep to the sternocleidomastoid muscle mid left neck Left maxillary sinusitis IMPRESSION: 2.2 cm soft tissue soft palate presumably neoplastic. Soft tissue left posterior nasal cavity may be a polyp or probably less likely neoplastic Right and left tonsils are prominent Bilateral neck lymphadenopathy probably neoplastic
--- NOTE | 2024-01-16 15:09 | EDPHYS ---
Physician Documentation [facility] Name: Vero Tineo Age: 58 yrs Sex: Female : 1965 Arrival Date: 01/16/2024 Time: 11:45 Bed 20 Private MD: SHAZIA Physician Cornell Echevarria HPI: 01/15 14:56 This 58 yrs old Female presents to ER via EMS with complaints of héctor Nausea/Vomiting/Diarrhea. 14:56 The patient presents to the emergency department with nausea, vomiting, diarrhea. héctor Onset: The symptoms/episode began/occurred 3 day(s) ago. Possible causes: ORAL CANCER, CANT EAT OR DRINK. The symptoms are aggravated by food , The symptoms are alleviated by nothing. remaining still. Associated signs and symptoms: Pertinent positives: diarrhea, nausea, vomiting. Severity of symptoms: At their worst the symptoms were moderate in the emergency department the symptoms are unchanged. The patient has not experienced similar symptoms in the past. Historical: - Allergies: 12:55 No Known Allergies; ph - Immunization history:: Adult Immunizations unknown. - Social history:: Smoking status: Patient reports the use of cigarette tobacco products, smokes one-half pack cigarettes per day. ROS: 14:57 Constitutional: Negative for fever, chills, and weight loss, Eyes: Negative for injury, héctor pain, redness, and discharge, Neck: Negative for injury, pain, and swelling, Cardiovascular: Negative for chest pain, palpitations, and edema, Respiratory: Negative for shortness of breath, cough, wheezing, and pleuritic chest pain, Abdomen/GI: Negative for abdominal pain, nausea, vomiting, diarrhea, and constipation, Back: Negative for injury and pain, : Negative for injury, bleeding, discharge, and swelling, MS/Extremity: Negative for injury and deformity, Skin: Negative for injury, rash, and discoloration, Neuro: Negative for headache, weakness, numbness, tingling, and seizure, Psych: Negative for depression, anxiety, suicide ideation, homicidal ideation, and hallucinations, Allergy/Immunology: Negative for hives, rash, and allergies, Endocrine: Negative for neck swelling, polydipsia, polyuria, polyphagia, and marked weight changes, Hematologic/Lymphatic: Negative for swollen nodes, abnormal bleeding, and unusual bruising, 14:57 ENT: Positive for rhinorrhea, sinus congestion, sore throat, 14:57 Abdomen/GI: Positive for nausea and vomiting, diarrhea, 14:57 Neuro: Positive for dizziness, weakness, Exam: 14:57 Constitutional: This is a well developed, well nourished patient who is awake, alert, héctor and in no acute distress. Head/Face: Normocephalic, atraumatic. Eyes: Pupils equal round and reactive to light, extra-ocular motions intact. Lids and lashes normal. Conjunctiva and sclera are non-icteric and not injected. Cornea within normal limits. Periorbital areas with no swelling, redness, or edema. Chest/axilla: Normal chest wall appearance and motion. Nontender with no deformity. No lesions are appreciated. Cardiovascular: Regular rate and rhythm with a normal S1 and S2. No gallops, murmurs, or rubs. Normal PMI, no JVD. No pulse deficits. Respiratory: Lungs have equal breath sounds bilaterally, clear to auscultation and percussion. No rales, rhonchi or wheezes noted. No increased work of breathing, no retractions or nasal flaring. Abdomen/GI: Soft, non-tender, with normal bowel sounds. No distension or tympany. No guarding or rebound. No evidence of tenderness throughout. Back: No spinal tenderness. No costovertebral tenderness. Full range of motion. Female : Normal external genitalia. Skin: Warm, dry with normal turgor. Normal color with no rashes, no lesions, and no evidence of cellulitis. MS/ Extremity: Pulses equal, no cyanosis. Neurovascular intact. Full, normal range of motion. Neuro: Awake and alert, GCS 15, oriented to person, place, time, and situation. Cranial nerves II-XII grossly intact. Motor strength 5/5 in all extremities. Sensory grossly intact. Cerebellar exam normal. Normal gait. Psych: Awake, alert, with orientation to person, place and time. Behavior, mood, and affect are within normal limits. 14:57 ENT: Posterior pharynx: Airway: normal, no evidence of obstruction, Tonsils: bilaterally enlarged, with erythema, Uvula: midline, non-edematous, no erythema, swelling, is not appreciated, erythema, is not appreciated, exudate, is not appreciated, Dental exam: pain, that is mild, MILD TRISMUS, 15:09 ECG was reviewed by the Attending Physician. [facility] Vital Signs: 12:30 BP 133 / 85; Pulse 93; Resp 18; Pulse Ox 99% ; cp4 12:33 BP 133 / 85; Pulse 89; Resp 18; Temp 97.7; Pulse Ox 100% on R/A; Weight 44.45 kg; ph Height 5 ft. 0 in. ; 13:30 BP 131 / 85; Pulse 91; Resp 18; Pulse Ox 99% ; cp4 14:30 BP 124 / 69; Pulse 91; Resp 18; Pulse Ox 99% ; cp4 15:30 BP 103 / 56; Pulse 80; Resp 18; Pulse Ox 98% ; cp4 16:30 BP 108 / 69; Pulse 91; Resp 18; Pulse Ox 99% ; cp4 17:30 BP 113 / 74; Pulse 98; Resp 18; Pulse Ox 99% ; cp4 18:30 BP 123 / 72; Pulse 92; Resp 18; Pulse Ox 100% ; cp4 19:30 BP 134 / 81; Pulse 94; Resp 18; Pulse Ox 100% ; cp4 20:30 BP 135 / 88; Pulse 82; Resp 18; Pulse Ox 100% ; cp4 12:33 Body Mass Index 19.14 (44.45 kg, 152.4 cm) ph MDM: 12:08 Patient medically screened. [facility] 15:04 Differential diagnosis: apthous stomatitis, apthous ulcer, dental caries, gingivitis, héctor dental abscess, Nonspecific abd pain, gastritis, pancreatitis, viral gastroenteritis, gastroenteritis, epiglottitis, gastroesophageal reflux disease, gingivostomatitis, group A strep tonsillitis, influenza, laryngitis, peritonsillar abscess pharyngitis, squamous cell carcinoma tonsillitis, tracheobronchitis, uvulitis, viral syndrome. Data reviewed: vital signs, nurses notes, EMS record, lab test result(s), EKG, radiologic studies, CT scan, plain films. Consideration of Admission/Observation Escalation of care including admission/observation considered. I considered the following discharge prescriptions or medication management in the emergency department Medications were administered in the Emergency Department. See MAR. Independent interpretation of the following test(s) in the Emergency Department EKG: See my EKG interpretation above. Test considered but Not performed: MRI: NO MRI SOFT TISSUE OF THE NECK. Care significantly affected by the following chronic conditions: Cancer. 01/15 12:15 Order name: Basic Metabolic Panel; Complete Time: 13:43 héctor 01/15 12:15 Order name: CBC with Diff; Complete Time: 13:20 héctor 01/15 12:15 Order name: LFT's; Complete Time: 13:43 héctor 01/15 12:15 Order name: Magnesium; Complete Time: 13:43 01/15 12:15 Order name: NT PRO-BNP; Complete Time: 13:43 01/15 12:15 Order name: PT-INR; Complete Time: 13:43 héctor 01/15 12:15 Order name: Troponin HS; Complete Time: 13:43 héctor 01/15 12:15 Order name: Lipase; Complete Time: 13:43 héctor 01/15 12:15 Order name: Urinalysis w/ reflexes; Complete Time: 13:20 héctor 01/15 22:00 Order name: Basic Metabolic Panel EDMS 01/15 22:00 Order name: Basic Metabolic Panel; Complete Time: 07:38 EDMS 01/15 22:00 Order name: Basic Metabolic Panel EDMS 01/15 22:01 Order name: Basic Metabolic Panel EDMS 01/15 22:01 Order name: CBC with Automated Diff EDMS 01/15 22:01 Order name: CBC with Automated Diff; Complete Time: 07:38 EDMS 01/15 22:01 Order name: CBC with Automated Diff EDMS 01/15 22:01 Order name: CBC with Automated Diff EDMS 01/15 22:01 Order name: Magnesium EDMS 01/15 22:01 Order name: Magnesium; Complete Time: 07:38 EDMS 01/16 04:46 Order name: Manual Differential; Complete Time: 07:38 EDMS 01/16 09:08 Order name: Thyroid Stimulating Hormone EDMS 01/15 12:15 Order name: XRAY Chest (1 view); Complete Time: 13:43 01/15 12:15 Order name: CT Soft Tissue Neck W/contr; Complete Time: 14:48 héctor 01/15 12:15 Order name: EKG; Complete Time: 12:15 01/15 12:15 Order name: Cardiac monitoring; Complete Time: 13:01 01/15 12:15 Order name: EKG - Nurse/Tech; Complete Time: 13:01 01/15 12:15 Order name: IV Saline Lock; Complete Time: 13:01 01/15 12:15 Order name: Labs collected and sent; Complete Time: 13: [facility] 01/15 12:15 Order name: O2 Per Protocol; Complete Time: [facility] 01/15 12:15 Order name: O2 Sat Monitoring; Complete Time: : [facility] EC:09 Rate is 87 beats/min. Rhythm is regular. [place] interval is normal. QRS interval is normal. [facility] QT interval is normal. No Q waves. T waves are Inverted in leads V4, V5, V6. ST Segment is depressed in leads II, III, aVF. Administered Medications: 13:12 Drug: NS 0.9% IV 1000 ml IV at 1 bolus Per protocol; 1000 mL bolus Route: IV; Rate: 1 cp4 bolus; Site: left wrist; 15:11 Follow up: Response: No adverse reaction; IV Status: Completed infusion cp4 13:12 Drug: Decadron - Dexamethasone IVP 10 mg IVP once Route: IVP; Site: left wrist; cp4 15:11 Follow up: Response: No adverse reaction cp4 13:12 Drug: Famotidine IVP 20 mg IVP once; dilute with 10 mL 0.9% NaCl; give over 2 minutes cp4 Route: IVP; Site: left wrist; 15:11 Follow up: Response: No adverse reaction cp4 13:12 Drug: Ondansetron IVP 4 mg IVP once; over 2 minutes Route: IVP; Site: left wrist; cp4 15:11 Follow up: Response: No adverse reaction cp4 13:42 Drug: levofloxacin IVPB 500 mg 100 ml IVPB once over 60 mins Volume: 100 ml; Route: cp4 IVPB; Infused Over: 60 mins; Site: left wrist; 15:20 Follow up: Response: No adverse reaction; IV Status: Completed infusion cp4 15:21 Drug: NS 0.9% with KCl IV 20 mEq/L 1000 ml IV at 500 ml/hr continuous Route: IV; Rate: cp4 500 ml/hr; Site: left wrist; 20:04 Follow up: Response: No adverse reaction; IV Status: Completed infusion cp4 20:04 Drug: Potassium Chloride IV 20 mEq IV at per protocol once; administer over 1-2 hours cp4 Route: IV; Rate: per protocol; Site: left wrist; Disposition Summary: 01/16/24 16:50 Hospitalization Ordered Notes: Hospitalization Status: Inpatient Admission [facility] Provider: Negrito Elizondo cha Condition: Fair(01/16/24 16:50) héctor Problem: new(01/16/24 16:50) héctor Symptoms: have improved(01/16/24 16:50) héctor Bed/Room Type: Standard héctor Location: Telemetry/MedSurg (Inpatient)(01/17/24 09:29) bd Room Assignment: 420(01/17/24 09:29) bd Diagnosis - Dehydration(01/16/24 16:50) héctor - Hypokalemia(01/16/24 16:50) héctor - Vomiting(01/16/24 16:50) héctor - Diarrhea, unspecified(01/16/24 16:50) éhctor - Weakness(01/16/24 16:50) héctor - Dysphagia - oropharyngeal cancer(01/16/24 16:51) héctor Forms: - Medication Reconciliation Form héctor - SBAR form héctor - Leadership Thank You Letter héctor Signatures: Dispatcher [employer] EDNida Arteaga Corey, MD MD cha Waters, Shelly, LIFE TRAINER-C LIFE TRAINER-Csnw Emerald Fernández RN RN Josiane Calderon Christina cp4 Corrections: (The following items were deleted from the chart) 15:09 15:08 TO [facility] , OROPHRYNGEAL CANCER héctor héctor 16:47 15:08 [facility] héctor héctor 16:47 15:08 Higher level of care héctor héctor 16:47 15:08 Fair héctor héctor 16:47 15:08 new héctor héctor 16:47 15:08 have improved héctor héctor 16:47 15:08 Dehydration héctor héctor 16:47 15:08 Hypokalemia héctor héctor 16:47 15:08 Dysphagia - SECONDARY TO OROPHARYNGEAL CANCER héctor héctor 16:47 15:09 TO [facility] , OROPHRYNGEAL CANCER héctor héctor 16:47 15:09 Vomiting héctor héctor 16:47 15:09 Diarrhea, unspecified héctor héctor 16:47 15:09 Weakness héctor héctor 16:51 16:50 Dysphagia héctor héctor 17:45 16:50 Telemetry/MedSurg (Inpatient) héctor eb 17:45 16:50 héctor eb 17:57 17:01 Urinalysis w/ reflexes ordered. EDMS EDMS 17:57 17:01 Basic Metabolic Panel ordered. EDMS EDMS 17:57 17:01 Basic Metabolic Panel ordered. EDMS EDMS 17:57 17:01 Basic Metabolic Panel ordered. EDMS EDMS 17:57 17:01 Basic Metabolic Panel ordered. EDMS EDMS 17:57 17:01 CBC with Automated Diff ordered. EDMS EDMS 17:57 17:01 CBC with Automated Diff ordered. EDMS EDMS 17:57 17:01 CBC with Automated Diff ordered. EDMS EDMS 17:57 17:01 CBC with Automated Diff ordered. EDMS EDMS 17:57 17:01 Magnesium ordered. EDMS EDMS 17:57 17:01 Magnesium ordered. EDMS EDMS 17:57 17:01 Magnesium ordered. EDMS EDMS 17:57 17:01 Magnesium ordered. EDMS EDMS 17:57 17:01 NT PRO-BNP ordered. EDMS EDMS 17:57 17:01 NT PRO-BNP ordered. EDMS EDMS 17:57 17:01 NT PRO-BNP ordered. EDMS EDMS 17:57 17:01 NT PRO-BNP ordered. EDMS EDMS 17:57 17:02 Speech Therapy Consult ordered. EDMS EDMS 01/16 00:29 01/15 17:58 Del Cid ordered. héctor tm6 01/16 09:29 01/15 17[facility] 01/16 09:01/15 17:45 ERHOLD- eb bd
--- NOTE | 2024-01-16 15:09 | ER ---
Nurse's Notes [facility] Name: Vero Tineo Age: 58 yrs Sex: Female : 1965 Arrival Date: 01/16/2024 Time: 11:45 Bed 20 Private MD: Diagnosis: Dehydration;Hypokalemia;Dysphagia-oropharyngeal cancer;Vomiting;Diarrhea, unspecified;Weakness Presentation: 01/15 12:26 Chief complaint: EMS states: Recently discharged from [facility], c/o N/V/D, is unable to ph tolerate food or fluids, BGL 118. Coronavirus screen: Vaccine status: Patient reports receiving the 1st dose of the Covid vaccine. Ebola Screen: No symptoms or risks identified at this time. 12:26 Method Of Arrival: EMS: [facility] 12:55 Initial Sepsis Screen: Does the patient meet any 2 criteria? No. Patient's initial ph sepsis screen is negative. Does the patient have a suspected source of infection? No. Patient's initial sepsis screen is negative. Risk Assessment: Do you want to hurt yourself or someone else? Patient reports no desire to harm self or others. Onset of symptoms was January 16, 2024. 12:55 Acuity: ABDIRASHID 3 ph Historical: - Allergies: 12:55 No Known Allergies; ph - Immunization history:: Adult Immunizations unknown. - Social history:: Smoking status: Patient reports the use of cigarette tobacco products, smokes one-half pack cigarettes per day. Screenin:07 [facility] ED Fall Risk Assessment (Adult) History of falling in the last 3 months, cp4 including since admission No falls in past 3 months (0 pts) Confusion or Disorientation No (0 pts) Intoxicated or Sedated No (0 pts) Impaired Gait No (0 pts) Mobility Assist Device Used No (0 pt) Altered Elimination No (0 pt) Score/Fall Risk Level 0 - 2 = Low Risk Oriented to surroundings, Maintained a safe environment, Educated pt \T\ family on fall prevention, incl call for assistance when getting out of bed, Assessed \T\ reinforced patient's understanding of fall precautions, Hourly rounding (assess needs \T\ fall precautionary measures) done. Abuse screen: Denies threats or abuse. Nutritional screening: No deficits noted. Tuberculosis screening: No symptoms or risk factors identified. Assessment: 14:07 General: Appears in no apparent distress. Behavior is calm, cooperative, appropriate cp4 for age. Pain: Denies pain. GI: Abdomen is flat, non-distended, Bowel sounds present X 4 quads. Reports diarrhea, nausea, vomiting. Vital Signs: 12:30 BP 133 / 85; Pulse 93; Resp 18; Pulse Ox 99% ; cp4 12:33 BP 133 / 85; Pulse 89; Resp 18; Temp 97.7; Pulse Ox 100% on R/A; Weight 44.45 kg; ph Height 5 ft. 0 in. ; 13:30 BP 131 / 85; Pulse 91; Resp 18; Pulse Ox 99% ; cp4 14:30 BP 124 / 69; Pulse 91; Resp 18; Pulse Ox 99% ; cp4 15:30 BP 103 / 56; Pulse 80; Resp 18; Pulse Ox 98% ; cp4 16:30 BP 108 / 69; Pulse 91; Resp 18; Pulse Ox 99% ; cp4 17:30 BP 113 / 74; Pulse 98; Resp 18; Pulse Ox 99% ; cp4 18:30 BP 123 / 72; Pulse 92; Resp 18; Pulse Ox 100% ; cp4 19:30 BP 134 / 81; Pulse 94; Resp 18; Pulse Ox 100% ; cp4 20:30 BP 135 / 88; Pulse 82; Resp 18; Pulse Ox 100% ; cp4 12:33 Body Mass Index 19.14 (44.45 kg, 152.4 cm) ph ED Course: 12:00 Patient arrived in ED. ph 12:08 Cornell Echevarria MD is Attending Physician. [facility] 12:21 Genesis Mitchell is Primary Nurse. cp4 12:55 Triage completed. ph 12:56 Arm band placed on. ph 13:19 XRAY Chest (1 view) In Process Unspecified. EDMS 14:07 Bed in low position. Call light in reach. Side rails up X 1. cp4 14:07 No provider procedures requiring assistance completed. Inserted saline lock: 22 gauge cp4 in left wrist, using aseptic technique. Blood collected. 14:[address] via stretcher. hb 14:18 CT Soft Tissue Neck W/contr In Process Unspecified. EDMS 15:14 Missed attempt(s): 22 gauge in right antecubital area. Bleeding controlled, band aid hb applied, catheter tip intact. 15:16 initiated a transfer with Mariola from the [facility] transfer center/ patient request. eb 15:20 Missed attempt(s): 24 gauge in right forearm. Bleeding controlled, band aid applied, hb catheter tip intact. 15:[address] Guajardo the physician special education director for [facility] [place] with Dr. Echevarria for eb patient transfer consultation/ per Dr. Ecehvarria/ Dr. Guajardo says they do not deal with oncology and thinks the patient needs to be sent to the [facility] center. 16:03 attempted to initiate a transfer with Mahamed Walkertanmay from the [facility] eb [facility]/ patient is auto declined/ all facilities are at capacity. 16:48 Negrito Elizondo MD is Hospitalizing Provider. [facility] 23:46 Provided Education on: need for admit. tm6 23:46 Patient admitted, IV remains in place. tm6 Administered Medications: 13:12 Drug: NS 0.9% IV 1000 ml IV at 1 bolus Per protocol; 1000 mL bolus Route: IV; Rate: 1 cp4 bolus; Site: left wrist; 15:11 Follow up: Response: No adverse reaction; IV Status: Completed infusion cp4 13:12 Drug: Decadron - Dexamethasone IVP 10 mg IVP once Route: IVP; Site: left wrist; cp4 15:11 Follow up: Response: No adverse reaction cp4 13:12 Drug: Famotidine IVP 20 mg IVP once; dilute with 10 mL 0.9% NaCl; give over 2 minutes cp4 Route: IVP; Site: left wrist; 15:11 Follow up: Response: No adverse reaction cp4 13:12 Drug: Ondansetron IVP 4 mg IVP once; over 2 minutes Route: IVP; Site: left wrist; cp4 15:11 Follow up: Response: No adverse reaction cp4 13:42 Drug: levofloxacin IVPB 500 mg 100 ml IVPB once over 60 mins Volume: 100 ml; Route: cp4 IVPB; Infused Over: 60 mins; Site: left wrist; 15:20 Follow up: Response: No adverse reaction; IV Status: Completed infusion cp4 15:21 Drug: NS 0.9% with KCl IV 20 mEq/L 1000 ml IV at 500 ml/hr continuous Route: IV; Rate: cp4 500 ml/hr; Site: left wrist; 20:04 Follow up: Response: No adverse reaction; IV Status: Completed infusion cp4 20:04 Drug: Potassium Chloride IV 20 mEq IV at per protocol once; administer over 1-2 hours cp4 Route: IV; Rate: per protocol; Site: left wrist; Medication: 14:07 VIS not applicable for this client. cp4 Outcome: 15:08 ER care complete, transfer ordered by . héctor 16:50 Decision to Hospitalize by Provider. héctor 23:46 Admitted to ER Hold. Please see [facility] for further documentation. tm6 23:46 Condition: stable 23:46 Instructed on the need for admit, Demonstrated understanding of instructions, 01/16 10:52 Patient left the ED. aa5 Signatures: Dispatcher [employer] EDMS Cornell Echevarria MD MD cha Calderon, Audri, RN RN aa5 Emerald Fernández RN RN Katharine Anne, RN Josiane Looney Christina cp4 Elizabeth Perrin RN RN tm6
--- NOTE | 2024-01-16 16:56 | P.HP ---
Certification for Inpatient Patient admitted to: Inpatient With expected LOS: <2 Midnights Practitioner: I am a practitioner with admitting privileges, knowledge of patient current condition, hospital course, and medical plan of care. Services: Services provided to patient in accordance with Admission requirements found in Title 42 Section 412.3 of the Code of Federal Regulations Patient History Date of Service: 01/16/24 Reason for admission: dysphagia History of Present Illness: 58 year old famale with past medical history of oral cancer, presents with NVD, dehydration, unable to tolerate po intake. She reports symptoms started 3 days ago. has associated diarrhea, nausea, vomiting. She denies fever, chest pain, shortness of breath. plan to admit for - OROPHRYNGEAL CANCER, Dysphagia, Vomiting, Diarrhea, unspecified, Weakness - Past Medical/Surgical History -: oral cancer -: dysphagia Review of Systems per HPI Physical Examination - Physical Exam General: Alert, In no apparent distress, Oriented x3, Other (dysphagia) HEENT: Atraumatic, Normocephalic Neck: 2+ carotid pulse no bruit, JVD not distended Respiratory: Normal air movement, Diminished Cardiovascular: Normal pulses, Regular rate/rhythm Capillary refill: <2 Seconds Gastrointestinal: Normal bowel sounds, Soft and benign Integumentary: No rashes, No breakdown Neurological: Normal speech, Normal strength at 5/5 x4 extr - Studies Laboratory Data (last 24 hrs) 01/16/24 01/16/24 01/16/24 13:04 13:04 13:04 WBC 7.60 Hgb 13.0 Hct 37.7 Plt Count 139 L PT 11.3 INR 1.03 Sodium 130 L Potassium 2.7 L BUN 4 L Creatinine 0.43 L Glucose 96 Magnesium 1.6 Total Bilirubin 1.1 H AST 31 ALT 29 Alkaline Phosphatase 57 Lipase 32 Assessment and Plan - Plan Assessment Plan OROPHRYNGEAL CANCER NVD dehydration Dysphagia unable to tolerate po intake. speech eval, Dehydration ALYSON Hypokalemia tele. trend electroylyte, replace prn DIET npo FULL CODE DVT SCD Discharge Plan: Home - Advance Directives Does patient have a Living Will: No Does patient have a Durable POA for Healthcare: No - Code Status/Comfort Care Code Status: Full Code Critical Care: No Time Spent Managing Pts Care (In Minutes): 55
[2024-01-16] MEDS ORDERED: ONDANSETRON 4 MG/2 ML VIAL IV PRN (16:57)
[2024-01-16] MEDS: NA CHLORIDE 0.9% 1,000 ML IV SCH ×2 (17:00→22:00)
[2024-01-16] MEDS ORDERED: KCL 20 MEQ/100 mL IVPB 100 ML IV ONE (19:59)
[2024-01-16] MEDS ORDERED: MAGNESIUM HYDROXIDE 8% 30 ML PO PRN (21:54)
--- NOTE | 2024-01-16 22:00 | P.HP ---
Certification for Inpatient Patient admitted to: Inpatient With expected LOS: >2 Midnights Practitioner: I am a practitioner with admitting privileges, knowledge of patient current condition, hospital course, and medical plan of care. Services: Services provided to patient in accordance with Admission requirements found in Title 42 Section 412.3 of the Code of Federal Regulations Patient History Date of Service: 01/17/24 Reason for admission: Nausea, vomiting, diarrhea, pain in mouth.. History of Present Illness: 58-year-old female patient with medical history significant for oral cancer, hypertension, hyperlipidemia was evaluated for episode of nausea vomiting and diarrhea. She also had reported poor inability to eat due to pain in mouth. She was evaluated in the ED and found to have significant abnormalities which include low sodium of 130, low potassium at 2.5 and imaging study confirmed soft palate mass with significant metastatic component to lymph nodes and significant lymphadenopathy. She was started on aggressive IV isotonic fluid repletion and was admitted for inpatient care. Allergies No Known Allergies Allergy (Unverified 01/16/24 21:14) Review of Systems General: Weakness, Malaise ENT: Mouth Pain Respiratory: Unremarkable Cardiovascular: Unremarkable Gastrointestinal: Nausea, Vomiting, Diarrhea Genitourinary: Unremarkable Musculoskeletal: Unremarkable Integumentary: Unremarkable Neurological: Unremarkable Lymphatics: Unremarkable Physical Examination - Physical Exam General: Alert, Oriented x3 HEENT: Atraumatic Neck: Supple Respiratory: Normal air movement Gastrointestinal: Soft and benign Musculoskeletal: No swelling Neurological: Normal speech - Studies Laboratory Data (last 24 hrs) 01/16/24 01/16/24 01/16/24 13:04 13:04 13:04 WBC 7.60 Hgb 13.0 Hct 37.7 Plt Count 139 L PT 11.3 INR 1.03 Sodium 130 L Potassium 2.7 L BUN 4 L Creatinine 0.43 L Glucose 96 Magnesium 1.6 Total Bilirubin 1.1 H AST 31 ALT 29 Alkaline Phosphatase 57 Lipase 32 Assessment and Plan - Plan Gastroenteritis: There is suspicious for infectious episode. Will continue empiric antibiotic therapy with Flagyl and Levaquin. Will continue volume repletion with isotonic fluid. Will monitor volume status closely. Hyponatremia: Sodium is low at 130. Will continue isotonic fluid for hydration and sodium repletion and follow labs. Hypokalemia: Potassium is low at 2.7. Deemed loss from GI episode. Will replete and follow levels on daily labs. 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 ENT surgeon to follow and evaluate. Volume depletion: Deemed secondary to the GI episode and poor oral intake. Will continue isotonic fluid for hydration and follow levels on daily labs. Prophylaxis: Lovenox for DVT prophylaxis. CODE STATUS: Full code. Disposition: We will treat her multiple medical issues and she will be discharged once she is deemed clinically stable and plan of care for oral cancer is finalized. - Advance Directives Does patient have a Living Will: No Does patient have a Durable POA for Healthcare: No
[2024-01-17] MEDS ORDERED: ONDANSETRON 4 MG/2 ML VIAL IV PRN (01:00)
[2024-01-17] MEDS ORDERED: NA CHLORIDE 0.9% 1,000 ML ONE (02:13)
[2024-01-17 03:36] LABS: Absolute Lymphocytes (CBC) 0.4 K/uL (0.7-4.9); Absolute Monocytes 0.5 K/uL (0.1-1.3); Absolute Neutrophil 6.1 K/uL (1.8-8.0); Basophils % 0.1 % (0-1.3); Hematocrit 31.8 % (36.0-45.0); Hemoglobin 10.9 g/dL (12.0-15.0); Lymphocytes % 6.2 % (15.3-44.8); MCH 33.9 pg (27.0-35.0); MCHC 34.4 g/dL (32.0-36.0); MCV 98.7 fL (80-100); MPV 8.7 fL (7.6-11.3); Monocytes % 6.6 % (3.3-12.3); Neutrophils % 87.1 % (41.7-73.7); Nucleated Red Blood Cells % 0.1 % (0-0); Platelets 154 thou/uL (152-406); RBC Red Blood Cell Count 3.22 M/uL (3.86-4.86); Red Cell Distribution Width 15.6 % (12.1-15.2)
[2024-01-17 03:49] LABS: Anion Gap 9.9 mEq/L (5.0-15.0); Magnesium 1.5 mg/dL (1.6-2.4); Potassium 2.9 mEq/L (3.5-5.1)
[2024-01-17 04:45] LABS: Band Neutrophils 2 % (0-1); Lymphocytes 11 % (15-42); Monocytes 2 % (0-10)
[2024-01-17 04:46] LABS: Blood Morphology Comment NOT SEEN (NOT SEEN); Platelet Estimate ADEQ
[2024-01-17] MEDS: Magnesium Sulfate 2gm IVPB 2 G/50 ML BAG IV ONE (05:02)
[2024-01-17] MEDS ORDERED: Magnesium Sulfate 2gm IVPB 2 G/50 ML BAG IV ONE (05:11)
[2024-01-17] MEDS ORDERED: KCL 20 MEQ/100 mL IVPB 300 ML IV ONE (05:18)
[2024-01-17] MEDS: KCL 20 MEQ/100 mL IVPB 20 MEQ/100 ML BAG IV SCH (05:22)
--- NOTE | 2024-01-17 07:54 | P.PN ---
Subjective Date of Service: 01/17/24 Chief Complaint: Nausea, vomiting, diarrhea, pain in mouth.. Subjective: No new changes <Sharon Lightlen - Last Filed: 01/17/24 07:54> Date of Service: 01/17/24 <Romelia Myles - Last Filed: 01/21/24 00:29> Review of Systems 10-point ROS is otherwise unremarkable General: As per HPI Eyes: Unremarkable ENT: Mouth Pain, Throat Swelling, As per HPI Respiratory: Unremarkable Cardiovascular: Unremarkable Gastrointestinal: As per HPI Genitourinary: Unremarkable Musculoskeletal: Unremarkable Integumentary: Unremarkable Neurological: Unremarkable Lymphatics: Enlarged lymph nodes, As per HPI <Sharon Light Yon - Last Filed: 01/17/24 07:54> Physical Examination - Vital Signs Temperature: 97.8 F Blood Pressure: 117/74 Pulse: 113 Respirations: 17 Pulse Ox (%): 96 - Physical Exam General: Alert, Oriented x3 HEENT: Atraumatic, Other (muffled speech) Neck: Other (significant LAD/mass effect), LAD Respiratory: Clear to auscultation bilaterally Cardiovascular: Regular rate/rhythm, Other (tachycardia) Capillary refill: <2 Seconds Gastrointestinal: Soft and benign Musculoskeletal: No clubbing, No swelling Integumentary: No rashes, Other (pallor) Neurological: Other (second to mass/muffling), Abnormal speech Lymphatics: Other (anterior/posterior cervical) External genitalia: Deferred Rectal: Deferred - Studies Laboratory Data (last 24 hrs) 01/16/24 01/16/24 01/16/24 13:04 13:04 13:04 WBC 7.60 Hgb 13.0 Hct 37.7 Plt Count 139 L PT 11.3 INR 1.03 Sodium 130 L Potassium 2.7 L BUN 4 L Creatinine 0.43 L Glucose 96 Magnesium 1.6 Total Bilirubin 1.1 H AST 31 ALT 29 Alkaline Phosphatase 57 Lipase 32 <Sharon Lightlen - Last Filed: 01/17/24 07:54> Assessment And Plan - Plan Hyponatremia: Sodium is low at 130. Will continue isotonic fluid for hydration and sodium repletion and follow labs. Hypokalemia: Potassium is low at 2.7. Deemed loss from GI episode. Will replete and follow levels on daily labs. 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 ENT surgeon to follow and evaluate. Will have NPO today in case of intervention such as Gtube or other nourishment route Volume depletion: Deemed secondary to the GI episode and poor oral intake. Will continue isotonic fluid for hydration and follow levels on daily labs. Prophylaxis: Lovenox for DVT prophylaxis. CODE STATUS: Full code. - Code Status/Comfort Care Code Status Assessed: Yes (full) <Sharon Light - Last Filed: 01/17/24 07:54> Date of Service: 01/17/24 Patient doing well. Patient was some drainage from her wound. Continue with antibiotics and continue with outpatient follow-up for the head and neck cancer. <Romelia Myles - Last Filed: 01/21/24 00:29>
[2024-01-17] MEDS: ENOXAPARIN 40 MG/0.4 ML SQ SCH (09:00)
[2024-01-17] MEDS ORDERED: ENOXAPARIN 40 MG/0.4 ML SQ ONE (09:23)
[2024-01-17 14:32] LABS: Anion Gap 9.4 mEq/L (5.0-15.0); Potassium 3.4 mEq/L (3.5-5.1)
[2024-01-17 17:44] VITALS: BMI 19.1
[2024-01-18 07:45] LABS: Absolute Eosinophils 0.1 K/uL (0-0.5); Absolute Monocytes 0.7 K/uL (0.1-1.3); Absolute Neutrophil 5.3 K/uL (1.8-8.0); Basophils % 0.1 % (0-1.3); Eosinophils % 0.9 % (0-4.4); Hematocrit 34.2 % (36.0-45.0); Hemoglobin 11.7 g/dL (12.0-15.0); Lymphocytes % 14.4 % (15.3-44.8); MCH 33.8 pg (27.0-35.0); MCHC 34.2 g/dL (32.0-36.0); MCV 98.8 fL (80-100); MPV 8.5 fL (7.6-11.3); Monocytes % 9.7 % (3.3-12.3); Neutrophils % 74.9 % (41.7-73.7); Platelets 163 thou/uL (152-406); RBC Red Blood Cell Count 3.46 M/uL (3.86-4.86); Red Cell Distribution Width 15.5 % (12.1-15.2)
[2024-01-18 08:02] LABS: Anion Gap 9.8 mEq/L (5.0-15.0); Bicarbonate 27 mEq/L (21-32); Glomerular Filtration Rate 123 ml/min (=/>90); Glucose Level 82 mg/dL (74-106); Potassium 2.8 mEq/L (3.5-5.1); Sodium Level 134 mEq/L (136-145)
[2024-01-18 08:03] LABS: BUN Blood Urea Nitrogen < 3 mg/dL (7-18)
--- NOTE | 2024-01-18 09:37 | P.DS ---
Admission Date: 01/16/24 Discharge Date: 01/18/24 Disposition: ROUTINE DISCHARGE Discharge Condition: FAIR Reason for Admission: Nausea, vomiting, diarrhea, pain in mouth.. Brief History of Present Illness: 58-year-old female patient with medical history significant for oral cancer, hypertension, hyperlipidemia was evaluated for episode of nausea vomiting and diarrhea. She also had reported poor inability to eat due to pain in mouth. She was evaluated in the ED and found to have significant abnormalities which include low sodium of 130, low potassium at 2.5 and imaging study confirmed soft palate mass with significant metastatic component to lymph nodes and significant lymphadenopathy. She was started on aggressive IV isotonic fluid repletion and was admitted for inpatient care. Hospital Course: Ms. Tineo was admitted to the hospital for correction of electrolyte derangements secondary to nausea vomiting and diarrhea. 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 She states at that time she was offered oral chemotherapy. States she does not "know what ever happened to that". The mass at her right neck apparently swells enough to rupture with serous discharge periodically. Ms. Tineo was encouraged to follow-up with oncology for treatment of her cancer. She has been able to tolerate oral intake of both liquids and solids during her hospitalization Vital Signs/Physical Exam: Temp Pulse Resp BP Pulse Ox 97.0 F 81 12 137/80 99 01/18/24 08:00 01/18/24 08:00 01/18/24 08:00 01/18/24 08:00 01/18/24 08:00 General: Alert, In no apparent distress, Oriented x2, Cachectic HEENT: Other (swallowing liquids and solid food, slurred speech) Neck: Other (right neck mass with crusting at rupture site), LAD Respiratory: Normal air movement Cardiovascular: No edema, Normal pulses, Regular rate/rhythm Capillary refill: <2 Seconds Gastrointestinal: Soft and benign Musculoskeletal: No clubbing, No swelling Integumentary: No rashes Neurological: Abnormal speech, Abnormal strength Lymphatics: No axilla or inguinal lymphadenopathy External genitalia: Deferred Rectal: Deferred Laboratory Data at Discharge: WBC 7.10 thou/uL (4.3-10.9) 01/18/24 07:13 Hgb 11.7 g/dL (12.0-15.0) L 01/18/24 07:13 Hct 34.2 % (36.0-45.0) L 01/18/24 07:13 Plt Count 163 thou/uL (152-406) 01/18/24 07:13 PT 11.3 SECONDS (9.5-12.5) 01/16/24 13:04 INR 1.03 01/16/24 13:04 Sodium 134 mEq/L (136-145) L 01/18/24 07:13 Potassium 2.8 mEq/L (3.5-5.1) L D 01/18/24 07:13 BUN < 3 mg/dL (7-18) L 01/18/24 07:13 Creatinine 0.29 mg/dL (0.55-1.02) L 01/18/24 07:13 Glucose 82 mg/dL (74-106) 01/18/24 07:13 Magnesium 2.0 mg/dL (1.6-2.4) 01/17/24 14:08 Total Bilirubin 1.1 mg/dL (0.2-1.0) H 01/16/24 13:04 AST 31 U/L (15-37) 01/16/24 13:04 ALT 29 U/L (13-56) 01/16/24 13:04 Alkaline Phosphatase 57 U/L (45-117) 01/16/24 13:04 Lipase 32 U/L (13-75) 01/16/24 13:04 Diet: soft Activity: Ad bharti Followup: Delmis Francisco PA [Primary Care Provider] -
[2024-01-18] MEDS: POTASSIUM 25 MEQ EFFERV TAB PO ONE ×2 (10:33→14:27)
[2024-01-18] MEDS: ENSURE ENLIVE 237 ML CAN PO SCH (14:00)
--- NOTE | 2024-01-18 14:12 | P.PN ---
Subjective Date of Service: 01/18/24 Chief Complaint: Nausea, vomiting, diarrhea, pain in mouth.. Subjective: Tolerating diet (not much caloric intake) <Sharon Lightlen - Last Filed: 01/18/24 14:07> Date of Service: 01/18/24 <Romelia Myles - Last Filed: 01/21/24 00:28> Review of Systems 10-point ROS is otherwise unremarkable General: Weakness Eyes: As per HPI <Eliz Lighttroy Marvin - Last Filed: 01/18/24 14:07> Physical Examination - Vital Signs Temperature: 97.8 F Blood Pressure: 122/79 Pulse: 92 Respirations: 14 Pulse Ox (%): 100 - Physical Exam General: Alert, Oriented x2, Cachectic HEENT: Atraumatic, Normocephalic Neck: Supple Respiratory: Normal air movement Cardiovascular: Normal pulses, Regular rate/rhythm Capillary refill: <2 Seconds Gastrointestinal: Soft and benign Musculoskeletal: No clubbing, No swelling Integumentary: No rashes Neurological: Abnormal speech, Abnormal strength Lymphatics: No axilla or inguinal lymphadenopathy External genitalia: Deferred Rectal: Deferred <Eliz Lighty Yon - Last Filed: 01/18/24 14:07> Assessment And Plan - Plan Hyponatremia: Sodium is low at 130. Will continue isotonic fluid for hydration and sodium repletion and follow labs. Hypokalemia: Potassium is low at 2.7. Continue to replete - improved will recheck at 2100 Deemed loss from GI episode. Will replete and follow levels on daily labs. 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 ENT surgeon to follow and evaluate. Not much to offer as far as ENT as no airway compromise. Suggest f/u with oncology. Gtube or other nourishment route will stella villela need placement soon CT head with contrast to eval for metastasis Volume depletion: Deemed secondary to the GI episode and poor oral intake. Will continue isotonic fluid for hydration and follow levels on daily labs. Prophylaxis: Lovenox for DVT prophylaxis. CODE STATUS: Full code. Plan to discharge in: 24 Hours <Eliz Lighttroy Marvin - Last Filed: 01/18/24 14:07> Date of Service: 01/18/24 Patient with a head and neck cancer that was diagnosed at [facility]. Patient has family and she has a really display the ability to understand her disease process. I spoke to her family friend who she lives with and who cares for her. 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 Our plan is to try to get patient to arrange for outpatient follow-up. Her long-term prognosis is poor without any treatment. <Romelia Myles - Last Filed: 01/21/24 00:28>
--- NOTE | 2024-01-18 15:05 | RAD REPORT ---
EXAM DESCRIPTION: CT - Head Brain W/Wo Con - 01/18/2024 2:53 pm CLINICAL HISTORY: r/o mets from head and neck ca Headache, drowsiness COMPARISON: Soft Tissue Neck W/Contr dated 01/16/2024 TECHNIQUE: All CT scans are performed using dose optimization technique as appropriate and may inclu de automated exposure control or mA/KV adjustment according to patient size. FINDINGS: No intracranial hemorrhage, hydrocephalus or extra-axial fluid collection.Moderate general ized brain atrophy.No areas of brain edema or evidence of midline shift. No pathologic enhancement se en to suggest tumor or infection. Polypoid thickening of the maxillary sinuses, greater on the left with soft tissue mass in the nasal vault noted. The calvarium is intact. IMPRESSION: No finding to indicate intracranial metastatic disease.
[2024-01-18] MEDS: ACETAMINOPHEN 325 MG TABLET PO PRN (20:23)
[2024-01-18 22:23] VITALS: O2SAT 100
[2024-01-19 03:43] LABS: Absolute Eosinophils 0.1 K/uL (0-0.5); Absolute Lymphocytes (CBC) 0.9 K/uL (0.7-4.9); Absolute Monocytes 0.7 K/uL (0.1-1.3); Absolute Neutrophil 2.7 K/uL (1.8-8.0); Basophils % 0.5 % (0-1.3); Eosinophils % 1.2 % (0-4.4); Hematocrit 31.7 % (36.0-45.0); Hemoglobin 10.7 g/dL (12.0-15.0); MCH 33.4 pg (27.0-35.0); MCHC 33.7 g/dL (32.0-36.0); MCV 99.2 fL (80-100); MPV 8.5 fL (7.6-11.3); Monocytes % 16.5 % (3.3-12.3); Neutrophils % 60.8 % (41.7-73.7); Nucleated Red Blood Cells % 0.1 % (0-0); Platelets 124 thou/uL (152-406); Red Cell Distribution Width 15.5 % (12.1-15.2)
[2024-01-19 04:03] LABS: Anion Gap 10.9 mEq/L (5.0-15.0); Potassium 3.9 mEq/L (3.5-5.1)
[2024-01-19] MEDS: POTASSIUM 25 MEQ EFFERV TAB PO ONE (06:07)
--- NOTE | 2024-01-19 15:04 | P.PN ---
Date of Service: 01/19/24 ubjective Date of Service: 01/19/24 Chief Complaint: dysphagia improved Subjective: Tolerating diet (not much caloric intake) Review of Systems 10-point ROS is otherwise unremarkable General: Weakness, cachexia Eyes: As per HPI Physical Examination - Vital Signs reviewed - Physical Exam General: Alert, Oriented x2, Cachectic HEENT: Atraumatic, Normocephalic Neck: Supple, significant LAD > on the right Respiratory: Normal air movement Cardiovascular: Normal pulses, Regular rate/rhythm Capillary refill: <2 Seconds Gastrointestinal: Soft and benign Musculoskeletal: No clubbing, No swelling Integumentary: No rashes Neurological: Abnormal speech, Abnormal strength Lymphatics: No axilla or inguinal lymphadenopathy External genitalia: Deferred Rectal: Deferred Assessment And Plan - Plan Hyponatremia: Sodium is low at 130 improved to 134 Will continue isotonic fluid for hydration and sodium repletion and follow labs. Hypokalemia: Potassium is low at 2.7. Continue to replete - improved, resolved Deemed loss from GI episode. Will replete and follow levels on daily labs. 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 ENT surgeon to follow and evaluate. Not much to offer as far as ENT as no airway compromise. Suggest f/u with oncology. Gtube or other nourishment route will likely need placement soon. Discharge planning to try to get pt treatment or hospice options CT head with contrast to eval for metastasis - negative CT head for metastasis Volume depletion: Deemed secondary to the GI episode and poor oral intake. Will continue isotonic fluid for hydration and follow levels on daily labs. Prophylaxis: Lovenox for DVT prophylaxis. CODE STATUS: Full code. <Sharon Light - Last Filed: 01/19/24 15:04> Patient has clinically stable. Electrolytes are stable. Patient will need to continue with outpatient follow-up with Oncology for head and neck cancer. Patient's family and friends are assisting in her getting disability in for her follow-up appointments. Tiffany states she will continue with helping her going forward. <Romelia Myles - Last Filed: 01/21/24 00:30>
--- NOTE | 2024-01-20 07:23 | P.PN ---
Date of Service: 01/20/24 ubjective Date of Service: 01/20/24 Chief Complaint: dysphagia improved Subjective: Tolerating diet (not much caloric intake) Review of Systems 10-point ROS is otherwise unremarkable General: Weakness, cachexia Eyes: As per HPI Physical Examination - Vital Signs reviewed - Physical Exam General: Alert, Oriented x2, Cachectic HEENT: Atraumatic, Normocephalic Neck: Supple, significant LAD > on the right Respiratory: Normal air movement Cardiovascular: Normal pulses, Regular rate/rhythm Capillary refill: <2 Seconds Gastrointestinal: Soft and benign Musculoskeletal: No clubbing, No swelling Integumentary: No rashes Neurological: Abnormal speech, Abnormal strength Lymphatics: No axilla or inguinal lymphadenopathy External genitalia: Deferred Rectal: Deferred Assessment And Plan - Plan Hyponatremia: Will continue isotonic fluid for hydration and sodium repletion and follow labs. Hypokalemia: Potassium is low at 2.7. Continue to replete - improved, resolved Will replete and follow levels on daily labs. 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 ENT surgeon to follow and evaluate. Not much to offer as far as ENT as no airway compromise. Suggest f/u with oncology. Gtube or other nourishment route will likely need placement soon. Discharge planning to try to get pt treatment or hospice options CT head with contrast to eval for metastasis - negative CT head for metastasis Volume depletion: Will continue isotonic fluid for hydration and follow levels on daily labs. calorie count Prophylaxis: Lovenox for DVT prophylaxis. CODE STATUS: Full code.
[2024-01-20 08:32] LABS: Anion Gap 8.9 mEq/L (5.0-15.0); Bicarbonate 27 mEq/L (21-32); Glomerular Filtration Rate 118 ml/min (=/>90); Glucose Level 91 mg/dL (74-106); Potassium 3.9 mEq/L (3.5-5.1); Sodium Level 131 mEq/L (136-145)
[2024-01-20 08:33] LABS: BUN Blood Urea Nitrogen < 3 mg/dL (7-18)
--- NOTE | 2024-01-20 13:05 | P.DS ---
Admission Date: 01/16/24 Discharge Date: 01/20/24 Comment: With Tiffany. She is working on disability and patient follow up Reason for Admission: Nausea, vomiting, diarrhea, pain in mouth.. - Problems (1) Malnutrition Status: Acute Qualifiers: Malnutrition type: protein-calorie malnutrition Protein-calorie malnutrition severity: severe Qualified Code(s): E43 - Unspecified severe protein-calorie malnutrition (2) Head and neck cancer Status: Acute (3) Head and neck lymphadenopathy Status: Acute Brief History of Present Illness: 58-year-old female patient with medical history significant for oral cancer, hypertension, hyperlipidemia was evaluated for episode of nausea vomiting and diarrhea. She also had reported poor inability to eat due to pain in mouth. She was evaluated in the ED and found to have significant abnormalities which include low sodium of 130, low potassium at 2.5 and imaging study confirmed soft palate mass with significant metastatic component to lymph nodes and significant lymphadenopathy. She was started on aggressive IV isotonic fluid repletion and was admitted for inpatient care. Hospital Course: Ms. Tineo was admitted to the hospital for correction of electrolyte derangements secondary to nausea vomiting and diarrhea. 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 She states at that time she was offered oral chemotherapy. States she does not "know what ever happened to that". The mass at her right neck apparently swells enough to rupture with serous discharge periodically. Ms. Tineo was encouraged to follow-up with onco logy for treatment of her cancer. She has been able to tolerate oral intake of both liquids and solids during her hospitalization <Sharon Light - Last Filed: 01/20/24 13:01> Admission Date: 01/16/24 Discharge Date: 01/21/24 Hospital Course: I spoke to patient's family friend Tiffany. She told me that patient was diagnosed at [facility] with the lymph node biopsy. She was found to have head and neck cancer. She was discharged home for outpatient follow-up. 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 She states that the patient has like a sister to her and they have been helping her with disability. The have social security paperwork pending next week. They also have tried to arrange for outpatient follow-up. They are thinking about taking her to use [facility] or [facility] and for further workup. Patient's family is from [place], [place]. She has children that she has not seen but they are aware of her location according to her friend. At this time, patient is clinically stable and her medical condition is optimized. Patient is stable for discharge home with continued outpatient follow-up as mentioned above. <MylesErasmo schroederariel Matias - Last Filed: 01/21/24 00:34> Disposition: ROUTINE DISCHARGE Discharge Condition: FAIR Vital Signs/Physical Exam: Temp Pulse Resp BP Pulse Ox 97.3 F 100 H 16 152/94 H 98 01/20/24 08:00 01/20/24 08:00 01/20/24 08:00 01/20/24 08:00 01/20/24 08:00 General: Alert, Cooperative, Cachectic, Other (confused) HEENT: Atraumatic, Normocephalic Neck: Other (severe right greater than left), LAD Respiratory: Normal air movement Cardiovascular: Normal pulses, Regular rate/rhythm Capillary refill: <2 Seconds Gastrointestinal: Soft and benign Musculoskeletal: No clubbing, No swelling Integumentary: No rashes Neurological: Abnormal speech, Abnormal strength Lymphatics: No axilla or inguinal lymphadenopathy External genitalia: Deferred Rectal: Deferred Laboratory Data at Discharge: WBC 4.50 thou/uL (4.3-10.9) 01/19/24 03:27 Hgb 10.7 g/dL (12.0-15.0) L D 01/19/24 03:27 Hct 31.7 % (36.0-45.0) L 01/19/24 03:27 Plt Count 124 thou/uL (152-406) L 01/19/24 03:27 PT 11.3 SECONDS (9.5-12.5) 01/16/24 13:04 INR 1.03 01/16/24 13:04 Sodium 131 mEq/L (136-145) L 01/20/24 07:50 Potassium 3.9 mEq/L (3.5-5.1) 01/20/24 07:50 BUN < 3 mg/dL (7-18) L 01/20/24 07:50 Creatinine 0.35 mg/dL (0.55-1.02) L 01/20/24 07:50 Glucose 91 mg/dL (74-106) 01/20/24 07:50 Magnesium 2.0 mg/dL (1.6-2.4) 01/17/24 14:08 Total Bilirubin 1.1 mg/dL (0.2-1.0) H 01/16/24 13:04 AST 31 U/L (15-37) 01/16/24 13:04 ALT 29 U/L (13-56) 01/16/24 13:04 Alkaline Phosphatase 57 U/L (45-117) 01/16/24 13:04 Lipase 32 U/L (13-75) 01/16/24 13:04 <Light,Sharon Yon - Last Filed: 01/20/24 13:01> Vital Signs/Physical Exam: Temp Pulse Resp BP Pulse Ox 97.2 F 125 H 16 110/75 99 01/20/24 16:00 01/20/24 16:00 01/20/24 16:00 01/20/24 16:00 01/20/24 16:00 Laboratory Data at Discharge: WBC 4.50 thou/uL (4.3-10.9) 01/19/24 03:27 Hgb 10.7 g/dL (12.0-15.0) L D 01/19/24 03:27 Hct 31.7 % (36.0-45.0) L 01/19/24 03:27 Plt Count 124 thou/uL (152-406) L 01/19/24 03:27 PT 11.3 SECONDS (9.5-12.5) 01/16/24 13:04 INR 1.03 01/16/24 13:04 Sodium 131 mEq/L (136-145) L 01/20/24 07:50 Potassium 3.9 mEq/L (3.5-5.1) 01/20/24 07:50 BUN < 3 mg/dL (7-18) L 01/20/24 07:50 Creatinine 0.35 mg/dL (0.55-1.02) L 01/20/24 07:50 Glucose 91 mg/dL (74-106) 01/20/24 07:50 Magnesium 2.0 mg/dL (1.6-2.4) 01/17/24 14:08 Total Bilirubin 1.1 mg/dL (0.2-1.0) H 01/16/24 13:04 AST 31 U/L (15-37) 01/16/24 13:04 ALT 29 U/L (13-56) 01/16/24 13:04 Alkaline Phosphatase 57 U/L (45-117) 01/16/24 13:04 Lipase 32 U/L (13-75) 01/16/24 13:04 <Romelia Myles - Last Filed: 01/21/24 00:34> Diet: soft Activity: Ad bharti <Sharon Light - Last Filed: 01/20/24 13:01> Time spent managing pt's care (in minutes): 35 <Romelia Myles - Last Filed: 01/21/24 00:34> Physician Discharge Instructions: Ms. Tineo was admitted to the hospital for correction of electrolyte derangements secondary to nausea vomiting and diarrhea. 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 She states at that time she was offered oral chemotherapy. States she does not "know what ever happened to that". The mass at her right neck apparently swells enough to rupture with serous discharge periodically. Ms. Tineo was encouraged to follow-up with oncology for treatment of her cancer. She has been able to tolerate oral intake of both liquids and solids during her hospitalization. She has a disability meeting with the help of her friend, Yasmin, next week. Okay to DC IV and DC home Follow-up for disability next week Follow-up as soon as possible with PCP and oncology Please call the inpatient unit for any questions or concerns regarding hospital stay Return to the ER for worsening symptoms Followup: Yamliet Montgomery MD [ACTIVE - CAN ADMIT] - Delmis Francisco PA [Primary Care Provider] -
[2024-01-20 17:55] VITALS: BP 110/75; TEMP 97.2
--- NOTE | 2024-01-21 17:44 | EKG ---
Test Date: 2024-01-16 Test Time: 12:50:46 Instrument Man: ADAM MEASUREMENT RESULTS: Intervals: Rate: 87 ND: 156 QRSD: 70 QT: 394 QTc: 474 [place]: P: 76 ND: 156 QRS: 7 T: 117 INTERPRETIVE STATEMENTS: Normal sinus rhythm Anteroseptal infarct, age undetermined ST & T wave abnormality, consider lateral ischemia Abnormal ECG Compared to ECG 01/16/2024 12:50:18 Sinus tachycardia no longer present Atrial premature complex(es) no longer present Myocardial infarct finding still present ST (T wave) deviation still present Possible ischemia still present Electronically Signed On 01-21-24 17:29:20 CDT by Zeke Fuller
--- NOTE | 2024-01-21 17:44 | EKG ---
Test Date: 2024-01-16 Test Time: 12:50:18 [employer] Structural [employer] Engineer: ADAM MEASUREMENT RESULTS: Intervals: Rate: 101 NH: 152 QRSD: 74 QT: 384 QTc: 497 [place]: P: 77 NH: 152 QRS: 15 T: 142 INTERPRETIVE STATEMENTS: Sinus tachycardia with premature supraventricular complexes Anteroseptal infarct, age undetermined ST & T wave abnormality, consider inferior ischemia Abnormal ECG No previous ECG available for comparison Electronically Signed On 01-21-24 17:29:24 CDT by Zeke Fuller
== END 2024-01-20 16:56 | disposition home or self-care (01) | DRG 640 ==
LOC: ER 11:45 → ERHOLD 16:56 → UNDOADMIN 16:56 → ERHOLD 21:54 → 4TH 01-17 09:35
PROVIDERS: ADMIT Internal Medicine Nephrology; ATTEND Hospitalist
DX: E87.6 Hypokalemia (principal); E43 Unspecified severe protein-calorie malnutrition; R64 Cachexia; Z68.1 Body mass index [BMI] 19.9 or less, adult; R59.1 Generalized enlarged lymph nodes; E87.1 Hypo-osmolality and hyponatremia; C76.0 Malignant neoplasm of head, face and neck; C10.9 Malignant neoplasm of oropharynx, unspecified; K52.9 Noninfective gastroenteritis and colitis, unspecified; E86.0 Dehydration; E86.9 Volume depletion, unspecified; F17.210 Nicotine dependence, cigarettes, uncomplicated
CPT/HCPCS: 36415; 70470; 70491; 71045; 80048; 80076; 81001; 82330; 83690; 83735; 83880; 83970; 84132; 84443; 84484; 85025; 85610; 93005; 96361; 96365; 96366; 96375; 99285; J1100; J1650; J2405; J3475; J3480; J7030; Q9967